=== PATIENT | male | born 1955 | race Caucasian/White ===

== ENCOUNTER 2019-08-08 12:48 | Emergency (ER) | payer MEDICARE, MEDICAID, SELFPAY ==
--- NOTE | 2019-08-08 | XR_ITS ---
WS: [id number] Left shoulder, post reduction AP, 08/08/2019, 1516 hours. Clinical Data: POST REDUCTION Comparison: Left shoulder, 08/08/2019, 1350 hours. Findings: The left shoulder dislocation has been reduced. The humeral head is within the glenoid. No fractures are seen. XR/XR shoulder LT 1V 86765 Impression: Satisfactory reduction of left shoulder dislocation.
[2019-08-08 13:01] VITALS: BP 238/115; PULSE 75; RESP 17; TEMP 36.6; O2SAT 96; BMI 36.9
--- NOTE | 2019-08-08 13:11 | PC.NURSE ---
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 Denies hearing/feeling popping sensation. Able to move left extremity and make fist with left hand
--- NOTE | 2019-08-08 13:19 | XR_ITS ---
WS: [id number] Left shoulder, 3 views, 08/08/2019 Clinical Data: injury; get 3rd y view Comparison: None. Findings: There is an anterior subcoracoid dislocation. No fractures are seen. The AC joints intact. The soft t issues are unremarkable. XR/XR shoulder LT min 2V* [id number] Impression: Anterior subcoracoid dislocation of left humeral head.
--- NOTE | 2019-08-08 13:20 | ED_ITS ---
Documented by User: LIZZETTE Maldonado 08/08/19 15:34 HPI - Extremity Injury (Upper) General: Chief Complaint: Extremity Injury, Upper Stated Complaint: left arm pain/fall Time Seen by Provider: 08/08/19 13:09 Source: patient Mode of arrival: ambulatory Limitations: no limitations History of Present Illness: HPI narrative: Patient is a very nice 63-year-old male who presents to ED today with complaints of acute left shoulder pain. 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 Patient states upon the fall he grabbed a gate panel with the left arm causing it to pull. Patient did not end up falling directly onto the shoulder. MD complaint: injury to: left and shoulder Onset (ago): hour(s) Other Extremity Injury: Left: shoulder Other injuries: none Place: outdoors Severity: moderate Relieving factors: immobilization Exacerbating factors: movement of extremity Context: other (pulling injury) Associated symptoms: Reports no associated symptoms; Denies neck pain or weakness in extremities Review of Systems Card: Denies: chest pain, palpitations, irregular heart rhythm, edema, lightheadedness, syncope or pre-syncope Resp: Denies: shortness of breath Musc: Reports: joint pain; Denies: neck pain, back pain, extremity pain, extremity swelling or joint swelling Neuro: Denies: numbness in extremities, weakness in extremities or changes in sensation PFSH ED PFSH: Social History Smoking and tobacco status: never smoked Physical Exam Const: COMMON NORMALS: no apparent distress, oriented x3, no limitations, alert and well nourished Neck/C-Spine: COMMON NORMALS: full ROM CERVICAL SPINE: No cervical spine tenderness and No paracervical muscle tenderness Chest: COMMONS NORMALS: inspection of chest normal and palpation of chest normal Resp: COMMON NORMALS: normal respiratory effort and clear to auscultation bilaterally AUSCULTATION: clear to auscultation bilaterally Cardio: COMMON NORMALS: regular rate and regular rhythm RATE: regular rate RHYTHM: regular rhythm Extremity: LEFT UPPER EXTREMITY: Yes shoulder joint (TTP of anterior shoulder joint; severely limited ROM) Left shoulder joint: Yes other (deformity consistent with dislocation) Neuro: COMMON NORMALS: oriented x3 and no sensory deficits noted SENSORIUM/ORIENTATION: Yes alert Skin: COMMON NORMALS: no rashes or lesions noted GENERAL SKIN EXAM: no rashes or lesions noted Procedures Orthopedic Joint Reduction Joint #1: Time Out Performed: Yes Side: left Joint Reduction Location: shoulder Analgesia: procedural sedation (Propofol-Dr. Heller administered) Shoulder Technique Used (if applicable): traction/counter-traction and external rotation Post-reduction neuro exam: intact Post-reduction vascular: intact Post Reduction X-Ray Obtained: Yes Post Reduction X-Ray Results: reduced Splint Applied: Yes Patient Tolerated Procedure: well Procedural Sedation Indication: fracture/dislocation reduction ASA Class: II Time of Last PO Intake: 11:00 Preparation: monitor car operator applied and pulse oximeter IV Propofol dose (mg): 80 Patient Tolerated Procedure: well Complications: none Interventions: oxygen applied Course Vital Signs: Vital signs: Vital Signs Temperature 97.8 F 08/08/19 13:01 Pulse Rate 90 08/08/19 15:10 Respiratory Rate 20 H 08/08/19 15:10 Blood Pressure 170/125 08/08/19 15:10 Pulse Oximetry 96 08/08/19 15:10 MDM - Extremity Injury (Upper) Imaging Data^: L shoulder XR: Radiologist's impression: [address] [address] XRay Report Signed Patient: Bubba Rothman Unit #: [id number] : 1955 Age/Sex: 63 / M ADM Date: 08/08 Loc: ER Room/Bed: Attending Dr: Ordering Provider/Ordering MD: Sujey Carlos Date of Service: 08/08/19 Procedure(s): XR shoulder LT min 2V* 34170 Accession Number(s): [id number] Report Number: [id number] WS: [id number] Left shoulder, 3 views, 08/08/2019 Clinical Data: injury; get 3rd y view Comparison: None. Findings: There is an anterior subcoracoid dislocation. No fractures are seen. The AC joints intact. The soft tissues are unremarkable. XR/XR shoulder LT min 2V* [id number] Impression: Anterior subcoracoid dislocation of left humeral head. Dictated By: Erika Lucero MD Signed By: Erika Lucero MD Signed Date/Time: 08/08/19 1352 DD/ 1351 L shoulder XR post reduction: Radiologist's impression: [facility] [address] [place] [address] XRay Report Signed Patient: Bubba Rothman Unit #: [id number] : 1955 Age/Sex: 63 / M ADM Date: 08/08/19 Loc: ER Room/Bed: Attending Dr: Ordering Provider/Ordering MD: Tammie Heller MD Date of Service: 08/08/19 Procedure(s): XR shoulder LT 1V 09925 Accession Number(s): [id number] Report Number: [id number] WS: [id number] Left shoulder, post reduction AP, 08/08/2019, 1516 hours. Clinical Data: POST REDUCTION Comparison: Left shoulder, 08/08/2019, 1350 hours. Findings: The left shoulder dislocation has been reduced. The humeral head is within the glenoid. No fractures are seen. XR/XR shoulder LT 1V 83271 Impression: Satisfactory reduction of left shoulder dislocation. Dictated By: Erika Lucero MD Signed By: Erika Lucero MD Signed Date/Time: 08/08/19 1522 DD/ 1521 Discharge Plan Discharge Patient Disposition: Home, Self-Care Clinical Impression: Anterior dislocation of left shoulder Qualifiers: Encounter type: initial encounter Qualified Code(s): S43.015A - Anterior dislocation of left humerus, initial encounter Condition: Stable Prescriptions: New hydrocodone-acetaminophen 5-325 mg tablet 1 tab PO Q6H PRN (Reason: pain) Qty: 14 RF: 0 Discharge Orders: Discharge Order (Routine); Ordered 08/08/19 Ordered By: Sujey Carlos Referrals: Gonzalo Hooker MD [Primary Care Provider] - Patient Instructions: Dislocation - Shoulder, Shoulder Dislocation (ED) Activity Restrictions/Additional Instructions: As discussed you need to wear shoulder brace at all times except for showering and bathing. Case management will set you up with orthopedics for follow-up. Coding Level of Care Code ED Cash Application Representative for Chg Fwd Exam Comprehensive Documented by User: Tammie Heller MD 08/08/19 15:56 HPI - Extremity Injury (Upper) General: Chief Complaint: Extremity Injury, Upper Stated Complaint: left arm pain/fall Time Seen by Provider: 08/08/19 13:09 PFSH ED PFSH: Social History Smoking and tobacco status: never smoked Course Vital Signs: Vital signs: Vital Signs Temperature 97.8 F 08/08/19 13:01 Pulse Rate 90 08/08/19 15:10 Respiratory Rate 20 H 08/08/19 15:10 Blood Pressure 170/125 08/08/19 15:10 Pulse Oximetry 96 08/08/19 15:10 MDM - Extremity Injury (Upper) MDM Narrative: Medical decision making narrative: I saw and examined patient with above midlevel and agree with her history and physical. I was in the room for this conscious sedation and the reduction. I administered the propofol for the sedation. Patient handled sedation well and reduction was successful and had good pulses and was neurologically intact after the procedure. Patient is to follow-up with orthopedics and is stable for discharge. Discharge Plan Discharge Patient Disposition: Home, Self-Care Clinical Impression: Anterior dislocation of left shoulder Qualifiers: Encounter type: initial encounter Qualified Code(s): S43.015A - Anterior dislocation of left humerus, initial encounter Condition: Stable Prescriptions: New hydrocodone-acetaminophen 5-325 mg tablet 1 tab PO Q6H PRN (Reason: pain) Qty: 14 RF: 0 Discharge Orders: Discharge Order (Routine); Ordered 08/08/19 Ordered By: Sujey Carlos Referrals: Gonzalo Hooker MD [Primary Care Provider] - Patient Instructions: Dislocation - Shoulder, Shoulder Dislocation (ED) Activity Restrictions/Additional Instructions: As discussed you need to wear shoulder brace at all times except for showering and bathing. Case management will set you up with orthopedics for follow-up. Coding Level of Care Code ED Cash Application Representative for Chg Fwd Exam Comprehensive
[2019-08-08 13:57] VITALS: RESP 18
[2019-08-08] MEDS: morphine 4 mg/mL SDV 1 mL IM (13:57)
[2019-08-08] MEDS: LORazepam 2 mg/mL INJ 1 mL IM (14:11)
[2019-08-08] MEDS: propofol 10 mg/mL SDV 20 mL 100 MG IVP (14:57)
[2019-08-08 14:58] VITALS: BP 206/111; PULSE 80; RESP 18; O2SAT 98
[2019-08-08 15:10] VITALS: BP 170/125; PULSE 90; RESP 20; O2SAT 96
[2019-08-08 15:49] VITALS: BP 186/130; PULSE 91; RESP 18; O2SAT 93
--- NOTE | 2019-08-09 10:15 | DCPLANNER ---
associate brand manager had message to schedule a follow up appointment for patient with ortho. associate brand manager called the ortho clinic, spoke with Pat, gave clinic patients information. associate brand manager was told that patients information would be printed and reviewed. Clinic will call case resolution specialist and patient with appointment information.
--- NOTE | 2019-08-13 13:27 | DCPLANNER ---
Patient has a follow up appointment for patient with Dr. Jett on , August 15, 2019 at 9:15 at ortho. Clinic will call patient with appointment information.
--- NOTE | 2019-08-22 09:50 | DCPLANNER ---
Patient attended appointment scheduled for 08.15.19 with ortho.
== END 2019-08-08 15:49 | disposition home or self-care (01) ==
PROVIDERS: Emergency Provider Physician Assistant; Family Provider Family Medicine; PCP Family Medicine
DX: S43.015A Anterior dislocation of left humerus, initial encounter (principal); W01.0XXA Fall on same level from slipping, tripping and stumbling without subsequent striking against object, initial encounter
CPT/HCPCS: 23650; 73020; 73030; 96372; 99282; 99284; J2060; J2270; J2704

== ENCOUNTER → 2019-08-15 09:40 | Outpatient (BNVA) | payer MEDICARE, MEDICAID, SELFPAY | PROVIDERS: Family Provider Family Medicine; PCP Family Medicine; Referring Provider Physician Assistant; Visit Provider Specialist | DX: M25.522 Pain in left elbow (principal); S52.125A Nondisplaced fracture of head of left radius, initial encounter for closed fracture; S43.005A Unspecified dislocation of left shoulder joint, initial encounter; X58.XXXA Exposure to other specified factors, initial encounter | CPT/HCPCS: 73030; 73080 ==

== ENCOUNTER 2020-01-02 00:16 | Emergency (ER) | payer MEDICARE, MEDICAID, SELFPAY ==
[2020-01-02 00:26] VITALS: BP 248/112; PULSE 59; RESP 18; TEMP 36.4; O2SAT 96; BMI 30.2
[2020-01-02 00:28] LABS: Basophils # 0.1 10^3/uL (0.0-0.1); Basophils % 0.9 %; Eosinophils # 0.1 10^3/uL (0.0-0.8); Eosinophils % 1.1 %; Hematocrit 53.2 % (42.0-52.0); Hemoglobin 18.1 g/dL (11.7-16.6); Lymphocytes # 2.5 10^3/uL (0.8-4.8); Lymphocytes % 35.1 %; Mean Corpuscular Hemoglobin 33.5 pg (28.0-34.0); Mean Corpuscular Volume 98.5 fL (80-94); Mean Platelet Volume 10.7 fL (7.4-10.4); Monocytes # 0.7 10^3/uL (0.2-0.9); Neutrophils # 3.69 10^3/uL (1.8-7.7); Neutrophils % 52.8 %; Nucleated Red Blood Cells % 0 %; Platelet Count 254 10^3/cmm (130-400); Red Cell Distribution Width 13.9 % (12.1-15.1)
--- NOTE | 2020-01-02 00:28 | ED_ITS ---
HPI - Abdominal Pain General: Chief Complaint: Abdominal Pain Stated Complaint: ABD PAIN Time Seen by Provider: 01/02/20 00:20 Source: patient and EMS Mode of arrival: EMS Limitations: no limitations History of Present Illness: HPI narrative: 64-year-old male whose had right- sided flank pain over the last 2 days. He states pain is sharp in nature and has had difficulty with urination to. He states that he has not been taking his blood pressure meds and he is hypertensive here. MD elicited complaint: abdominal pain and flank pain Pertinent past history: kidney stones Onset (ago): day(s) (2) Pain Consistency: constant Location: R flank Severity: moderate Quality: stabbing Radiation: other (groin) Exacerbating factors: nothing Relieving factors: nothing Associated Symptoms: Reports nausea; Denies chills, dysuria and fever(s) Review of Systems Const: Denies: fever(s), chills, body aches or change in appetite Eyes: Denies: blurry vision or eye discomfort ENMT: Denies: throat pain or dental pain Card: Denies: chest pain Resp: Denies: dyspnea GI: Reports: abdominal pain and nausea : Denies: dysuria Musc: Denies: neck pain or back pain Skin/Breast: Denies: rash Neuro: Denies: headache(s) Psych: Denies: depression Pedro/Lymph: Denies: easy bruising All/Imm: Denies: urticaria PFSH ED PFSH: Social History Smoking and tobacco status: never smoked Physical Exam Const: COMMON NORMALS: no acute distress, patient oriented x3 and healthy appearing HENMT: COMMON NORMALS: normocephalic and atraumatic HEAD & SCALP: normocephalic and atraumatic Eye: COMMON NORMALS: Equal, round and reactive pupils present and EOMs intact bilaterally PUPIL: Yes Equal, round and reactive pupils present Neck/C-Spine: COMMON NORMALS: full ROM and supple Chest: COMMONS NORMALS: normal inspection of the chest and normal palpation of entire chest wall Resp: COMMON NORMALS: normal respiratory effort, No retractions, No use of accessory muscles and clear to auscultation bilaterally AUSCULTATION: clear to auscultation bilaterally Cardio: COMMON NORMALS: regular rate, regular rhythm and No murmurs present (Cardio) RATE: regular rate RHYTHM: regular rhythm GI: COMMON NORMALS: Normal to inspection, nondistended, normoactive bowel sounds present, Soft to palpation, non-tender and no masses PALPATION: Yes Soft to palpation Extremity: COMMON NORMALS: normal to inspection and full ROM Neuro: COMMON NORMALS: patient oriented x3, moves all extremities and no focal motor deficits Psych: COMMON NORMALS: mental status grossly normal, Normal thought process present and cooperative THOUGHT PROCESS: Normal thought process present Skin: COMMON NORMALS: no rashes or lesions noted and no wounds GENERAL SKIN EXAM: no rashes or lesions noted Course Vital Signs: Vital signs: Vital Signs Temperature 97.5 F L 01/02/20 00:26 Pulse Rate 80 01/02/20 01:44 Respiratory Rate 16 01/02/20 01:44 Blood Pressure 188/105 01/02/20 01:44 Pulse Oximetry 91 01/02/20 01:44 MDM - Abdominal Pain MDM Narrative: Medical decision making narrative: Bubba presents here with a kidney stone that should pass. Will prescribe patient Flomax along with pain meds. Patient's pain is resolved here. Will have him follow-up with Dr. Tavarez and return if worsening. Patient understands agrees with plan. Lab Data: Labs: Lab Results 01/02/20 01/02/20 01/02/20 Range/Units 00:06 00:06 00:50 WBC 7.0 (4.0-10.0) 10^3/ uL RBC 5.40 H (4.1-5.3) 10^6/u L Hgb 18.1 H (11.7-16.6) g/dL Hct 53.2 H (42.0-52.0) % MCV 98.5 H (80-94) fL MCH 33.5 (28.0-34.0) pg MCHC 34.0 (30.0-36.0) g/dL RDW 13.9 (12.1-15.1) % Plt Count 254 (130-400) 10^3/c mm MPV 10.7 H (7.4-10.4) fL Neut % (Auto) 52.8 % Lymph % (Auto) 35.1 % Bland % (Auto) 10.0 % Eos % (Auto) 1.1 % Baso % (Auto) 0.9 % Neut # (Auto) 3.69 (1.8-7.7) 10^3/u L Lymph # (Auto) 2.5 (0.8-4.8) 10^3/u L Bland # (Auto) 0.7 (0.2-0.9) 10^3/u L Eos # (Auto) 0.1 (0.0-0.8) 10^3/u L Baso # (Auto) 0.1 (0.0-0.1) 10^3/u L Nucleated RBC % (a uto) 0 % Nucleated RBCs # 0.0 /100WBC Sodium 142 (136-145) mmol/L Potassium 3.4 L (3.5-5.1) mmol/L Chloride 100 (98-107) mmol/L Carbon Dioxide 27 (22-29) mmol/L Anion Gap 18.4 (5-19) BUN 10 (8-23) mg/dL Creatinine 0.7 (0.7-1.2) mg/dL GFR Calculation 113.9 (90-130) mL/min Glucose 143 H (65-115) mg/dL Calculated Osmolal ity 292 (285-295) mOsm/k g Calcium 9.8 (8.5-10.5) mg/dL Total Bilirubin 1.0 (0.15-1.2) mg/dL AST 25 (0-40) U/L ALT 41 (0-41) U/L Alkaline Phosphata se 106 (40-130) IU/L Total Protein 8.1 (6.6-8.7) g/dL Albumin 4.3 (3.5-5.2) g/dL Globulin 3.8 (1.3-4.6) g/dL Lipase 45 (13-60) U/L Urine Color Yellow (Yellow) Urine Appearance Clear (CLEAR) Urine pH 7 (5-7) Ur Specific Gravit y 1.015 (1.005-1.030) Urine Protein Neg (Negative) Urine Glucose (UA) Norm (Normal) Urine Ketones Negative (Negative) Urine Blood Trace H (Negative) Urine Nitrate Negative (Negative) Urine Bilirubin Neg (NEGATIVE) Urine Urobilinogen 1 H (Negative) mg/dL Ur Leukocyte Yolande ase Negative (Negative) Urine RBC 5-10 H (0-2) /hpf Urine WBC None (0-5) /hpf Ur Squamous Epith Cells None (0-5) Amorphous Sediment Not Reportable Urine Bacteria Trace (NONE) Imaging Data ^: CT Abd/Pel: Attestation: I personally reviewed and interpreted this imaging study as follows: Radiologist's impression: [facility] [address] [place] [address] CT Scan Report Signed Patient: Bubba Rothman Unit #: [id number] : 1955 Age/Sex: 64 / M ADM Date: Loc: ER Room/Bed: Attending Dr: Ordering Provider/Ordering MD: Tammie Heller MD Date of Service: 01/02/20 Procedure(s): CT kidney stone [id number] Accession Number(s): [id number] Report Number: [id number] PROCEDURE INFORMATION: Exam: CT Abdomen And Pelvis Without Contrast Exam date and time: 01/02/2020 12:29 AM Age: 64 years old Clinical indication: Nausea and vomiting; Abdominal pain; Prior surgery; Surgery type: Gb; Patient HX: Right flank pain with n/v x 2 days; Additional info: Rigth flank pain TECHNIQUE: Imaging protocol: Computed tomography of the abdomen and pelvis without contrast. Radiation optimization: All CT scans at this facility use at least one of these dose optimization techniques: automated exposure control; mA and/or kV adjustment per patient size (includes targeted exams where dose is matched to clinical indication); or iterative reconstruction. COMPARISON: CT Abdomen/Pelvis Renal [id number] 02/09/2018 2:15 AM RADIATION DOSE METRICS: Total DLP (mGy-cm): 1589.12 FINDINGS: Lungs: The lung bases are clear. Mediastinal space: Small hiatal hernia. There may be some mucosal/wall thickening involving the lower esophagus. This is nonspecific, but could represent evidence for esophagitis. Neoplasm not entirely excluded. Please correlate clinically. Liver: Unremarkable. Gallbladder and bile ducts: Prior cholecystectomy, no significant biliary tree dilation. Pancreas: Unremarkable. Spleen: Unremarkable. Adrenals: Unremarkable. Kidneys and ureters: Mild right hydronephrosis and hydroureter. There is a 2 mm distal right ureteral calculus, about 2 cm from the UVJ. Suspect a very small left intrarenal calculus. No left hydronephrosis or visible left ureteral calculus. Mild perinephric stranding bilaterally, similar to prior exam. This is a nonspecific appearance and could well be chronic. Possibility of pyelonephritis is not entirely excluded, please correlate clinically. Stomach and bowel: There are no CT findings to strongly suggest diverticulitis. Appendix: The appendix is visualized and appears normal. Intraperitoneal space: No free air, ascites, or significant bowel distention. Vasculature: No evidence for abdominal aortic aneurysm. Lymph nodes: No retroperitoneal adenopathy. Bladder: Possible mild diffuse urinary bladder wall thickening. Evaluation is limited, as the bladder is almost empty. This may be related to the prostate enlargement. While nonspecific, this could also indicate evidence for cystitis. Please correlate clinically. Reproductive: Prostate enlargement with transverse diameter of 4.8 cm. A the Bones/joints: Moderate degenerative disc changes at L5-S1, similar to the prior exam. Soft tissues: No significant acute finding. CT/CT kidney stone [id number] IMPRESSION: 1. 2 mm distal right ureteral calculus, details above. 2. Mild right hydronephrosis and hydroureter. 3. Mild perinephric stranding bilaterally, see above discussion 4. Normal appendix. 5. Prostate enlargement and possible urinary bladder wall thickening, see above. 6. Small hiatal hernia. Possibly some thickening of the lower esophagus, see above discussion. 7. Other findings discussed above. Discharge Plan Discharge Patient Disposition: Home, Self-Care Clinical Impression: Kidney stone Condition: Stable Prescriptions: [place] [facility] 5-325 mg tablet 1 tab PO Q6H PRN (Reason: pain) Qty: 14 RF: 0 Flomax 0.4 mg capsule 0.4 mg PO DAILY Qty: 4 RF: 0 ondansetron 4 mg tablet,disintegrating 4 mg PO Q6H PRN (Reason: nausea and vomiting) Qty: 14 RF: 0 No Action benzonatate 200 mg capsule PO RF: 0 gabapentin 300 mg capsule PO RF: 0 docusate sodium 100 mg capsule PO RF: 0 prednisone 10 mg tablet PO RF: 0 sertraline 50 mg tablet PO RF: 0 diclofenac sodium 75 mg tablet,delayed release (DR/EC) PO RF: 0 allopurinol 100 mg tablet PO RF: 0 trazodone 50 mg tablet PO RF: 0 omeprazole 20 mg capsule,delayed release(DR/EC) PO RF: 0 oxycodone 5 mg tablet 5 mg PO RF: 0 hydrocodone-acetaminophen 5-325 mg tablet 1 tab PO Q6H PRN (Reason: pain) Qty: 14 RF: 0 Discharge Orders: Discharge Order (Routine); Ordered 01/02/20 Ordered By: Tammie Heller Referrals: Archie Tavarez MD [Physician] - 1-3 days Gonzalo Hooker MD [Primary Care Provider] - Discharge Diet: Advance as tolerated Discharge Activity: Resume usual activity Patient Instructions: Kidney Stones (ED) Coding Level of Care Code ED Information Technology Account Manager for Chg Fwd Exam Comprehensive
[2020-01-02] MEDS: hyDRALAzine 20 mg/mL INJ 1 mL 10 MG IVP (00:41)
[2020-01-02 00:42] LABS: Alanine Aminotransferase 41 U/L (0-41); Albumin Level 4.3 g/dL (3.5-5.2); Alkaline Phosphatase 106 IU/L (40-130); Anion Gap 18.4 (5-19); Aspartate Amino Transferase 25 U/L (0-40); Blood Urea Nitrogen 10 mg/dL (8-23); Calcium 9.8 mg/dL (8.5-10.5); Carbon Dioxide 27 mmol/L (22-29); Chloride 100 mmol/L (98-107); Globulin 3.8 g/dL (1.3-4.6); Glomerular Filtration Rate 113.9 mL/min (90-130); Glucose 143 mg/dL (65-115); Lipase 45 U/L (13-60); Osmolality Calculated 292 mOsm/kg (285-295); Potassium 3.4 mmol/L (3.5-5.1); Sodium 142 mmol/L (136-145); Total Protein 8.1 g/dL (6.6-8.7)
[2020-01-02] MEDS: ondansetron 2 mg/ML SDV 2 mL 4 MG IVP (00:43)
[2020-01-02 00:44] VITALS: RESP 14; O2SAT 93
[2020-01-02] MEDS: morphine 4 mg/mL SDV 1 mL IVP (00:44)
[2020-01-02 00:46] VITALS: BP 248/112; PULSE 58; RESP 14; O2SAT 94
[2020-01-02 01:08] VITALS: BP 189/122; PULSE 85; RESP 18; O2SAT 92
[2020-01-02 01:44] VITALS: BP 188/105; PULSE 80; RESP 16; O2SAT 91
[2020-01-02] MEDS: ketorolac 30 mg/mL INJ 15 MG IVP (01:48)
[2020-01-02 01:58] LABS: Add Urine Microscopic? YES; Bilirubin Urine Neg (NEGATIVE); Blood Urine Trace (Negative); Glucose Urine UA Norm (Normal); Ketones Urine Negative (Negative); Leukocyte Esterase Urine Negative (Negative); Nitrate Urine Negative (Negative); Protein Urine Neg (Negative); Specific Gravity, Urine 1.015 (1.005-1.030); Urine Appearance Clear (CLEAR); Urine Color Yellow (Yellow); Urobilinogen Urine 1 mg/dL (Negative); pH Urine 7 (5-7)
[2020-01-02 01:59] LABS: Bacteria Urine TRACE
[2020-01-02] MEDS: HYDROcodone-acetaminophen 7.5-325 mg Tablet 1 TAB PO (02:18)
[2020-01-02 02:19] VITALS: BP 173/100; PULSE 98; RESP 14; O2SAT 94
--- NOTE | 2020-01-02 08:33 | DCPLANNER ---
restaurant culinary manager had message to schedule a follow up appointment for patient with Dr. Tavarez. restaurant culinary manager called the office of Dr. Tavarez, spoke with Layla, gave clinic patients information. restaurant culinary manager was told that patients information would be printed and reviewed. Clinic will call patient with appointment information.
--- NOTE | 2020-01-03 07:53 | DCPLANNER ---
Patient has a follow up appointment scheduled for Monday, January 06, 2020 at 3:[address] Tavarez. Clinic will call patient with appointment information.
--- NOTE | 2020-01-23 14:32 | DCPLANNER ---
Patient did attend appointment scheduled for 01.06.[address] Wynn office.
== END 2020-01-02 02:20 | disposition home or self-care (01) ==
PROVIDERS: Emergency Provider Emergency Medicine; PCP Family Medicine
DX: N20.0 Calculus of kidney (principal)
CPT/HCPCS: 12345; 36415; 74176; 80053; 81001; 81003; 83690; 85025; 96374; 96375; 99283; 99284; J0360; J1885; J2270; J2405

== ENCOUNTER 2020-01-06 13:33 | Outpatient (CLI) | payer MEDICARE, MEDICAID, SELFPAY ==
--- NOTE | 2020-01-06 14:30 | XRR_ITS ---
PROCEDURE INFORMATION: Exam: XR Abdomen, 1 View Exam date and time: 01/06/2020 1:58 PM Age: 64 years old Clinical indication: Condition or disease; Other: Stones; Additional info: Stone TECHNIQUE: Imaging protocol: XR of the abdomen. Views: Frontal supine view of the abdomen. 1 View. COMPARISON: CT kidney stone [id number] 01/02/2020 12:44 AM FINDINGS: Gastrointestinal tract: Normal. No bowel dilation. Organs: There are punctate calcifications in the mid left kidney. Bones/joints: Unremarkable. XR/XR KUB [id number] IMPRESSION: There are no acute concerning abnormalities.
== END 2020-01-06 13:34 | disposition home or self-care (01) ==
PROVIDERS: PCP Family Medicine; Visit Provider Urology
DX: N20.0 Calculus of kidney (principal)
CPT/HCPCS: 74018; 81001

== ENCOUNTER 2020-02-11 08:13 | Outpatient (CLI) | payer MEDICARE, MEDICAID, SELFPAY ==
--- NOTE | 2020-02-11 08:00 | XRR_ITS ---
PROCEDURE INFORMATION: Exam: XR Abdomen, 1 View Exam date and time: 02/11/2020 8:27 AM Age: 64 years old Clinical indication: Condition or disease; Kidney or ureter condition; Calculus (stone) in ureter; Additional info: Urteral stone TECHNIQUE: Imaging protocol: XR of the abdomen. Views: Frontal supine view of the abdomen. 1 View. COMPARISON: CR XR KUB [id number] 01/06/2020 1:50 PM FINDINGS: Gastrointestinal tract: Localized bowel dilatation in the right upper quadrant. Intraperitoneal space: Vas deferens calcification. Bones/joints: Degenerative change. Other: Nonspecific 1 mm calcification overlying the left paraspinous region at the L1-L2 level. If urolithiasis is of clinical concern, CT may be of benefit for further evaluation. XR/XR KUB [id number] IMPRESSION: 1. Localized bowel dilatation in the right upper quadrant. 2. Nonspecific 1 mm calcification overlying the left paraspinous region at the L1-L2 level. If urolithiasis is of clinical concern, CT may be of benefit for further evaluation.
== END 2020-02-11 08:14 | disposition home or self-care (01) ==
LOC: RAD 08:18
PROVIDERS: PCP Family Medicine; Visit Provider Urology
DX: N20.1 Calculus of ureter (principal)
CPT/HCPCS: 74018

== ENCOUNTER 2021-09-08 11:32 | Inpatient (IN) | payer MEDICARE, MEDICAID, SELFPAY ==
[2021-09-08] VITALS (21 sets, daily range): BP systolic 114–170; BP diastolic 71–113; PULSE 78–103; RESP 15–25; TEMP 36.4–36.6; O2SAT 91–96; BMI 38.0
--- NOTE | 2021-09-08 11:36 | W.ED.CHESTPA ---
HPI - Chest Pain General: Chief Complaint: Chest Pain Stated Complaint: CHEST PAIN Time Seen by Provider: 09/08/21 11:35 History of Present Illness: Mr Rothman is a 65-year-old gentleman with significant history of obesity and chewing tobacco use who presents to the emergency department due to chest pain. He reports symptom onset at rest yesterday afternoon. He describes pressure in the middle of his chest with radiation down the left arm and towards his epigastric region this resolved spontaneously however returned this morning. He did see his primary care provider yesterday. He endorses continued symptoms today and current moderate intensity symptoms. He had one episode of nausea associated with this but no other typical cardiac features. There is not an exertional component however this is worse when lying flat. Overall course of symptoms has persisted. Denies similar episodes in the past. Denies history of hypertension or hyperlipidemia. Denies prior NE. No other specific changes in health, exacerbating, or alleviating factors identified. Onset (ago): hour(s) Prior episodes: No Onset: during rest Pain location: substernal Pain radiation: left arm Severity: moderate Quality: aching and heaviness Relieving factors: nothing Exacerbating factors: supine Associated symptoms: Reports nausea Review of Systems General: Reports: 10 or more systems reviewed and unremarkable except in HPI and below GI: Reports: nausea PFSH ED PFSH: Medical History (Updated 09/08/21 @ 12:12 by Adrien Coffey MD) Gout Right ureteral stone Surgical History Hx of colonoscopy with polypectomy S/P carpal tunnel release Family History Family/Other Cancer rectal Father Cancer colon Mother , in her 80's Alzheimer disease Social History Smoking and tobacco status: never smoked Alcohol intake: former Marital status: Current occupational status: disabled History of recent travel: No Physical Exam Const: COMMON NORMALS: alert GENERAL APPEARANCE: cooperative, well developed and ill appearing (mildly) HENMT: COMMON NORMALS: normocephalic, atraumatic and external ears normal HEAD & SCALP: normocephalic and atraumatic EXTERNAL EAR: Yes external ears normal Eye: COMMON NORMALS: conjunctivae normal CONJUNCTIVA: Yes conjunctivae normal SCLERA: sclerae normal Neck/C-Spine: COMMON NORMALS: supple GENERAL: Yes trachea midline Resp: COMMON NORMALS: normal respiratory effort and clear to auscultation bilaterally EFFORT & INSPECTION: Yes able to speak in complete sentences AUSCULTATION: clear to auscultation bilaterally Cardio: COMMON NORMALS: regular rate and regular rhythm RATE: regular rate RHYTHM: regular rhythm GI: COMMON NORMALS: Soft to palpation PALPATION: Yes Soft to palpation and No Tenderness to palpation present (GI) PERCUSSION: normal to percussion Extremity: GENERAL: Yes normal exam except as noted and No edema Neuro: COMMON NORMALS: moves all extremities SENSORIUM/ORIENTATION: Yes alert and No Orientation impaired Psych: COMMON NORMALS: mental status grossly normal and Normal thought process present THOUGHT PROCESS: Normal thought process present Course ED course: - Patient was seen and evaluated by me at bedside immediately after being shown EKG. STEMI alert called. - Patient placed on cardiac monitors, IV access obtained - Initial evaluation notable for exam as above, nontoxic, satisfactory vitals. - Labs personally interpreted by me - Aspirin given by EMS CULINARY INTERN, Plavix, Zofran, heparin bolus given. - Labs notable for mild hemoconcentration which appears similar to prior, no leukocytosis. Metabolic panel and troponin pending at time of admission. - Cardiology came to bedside and evaluated the patient. Patient to be taken emergently to Digital Marketing Assistant for STEMI. - Patient left emergency department with the Digital Marketing Assistant team in satisfactory condition Note: Click bubbles or prepopulated monteiro in note writing are used for assistance with data collection and billing and are inherently more limited than narrative and other text portions of this note. Please use narrative for additional clinical history and defer to narrative/free test for any case of contradictory information. If information appears in only free text or click bubble it should be considered present or absent as reported. Please contact note freelance writer for clarifications of clinical information or contradictory information. MDM is a brief summary, contradictory or erroneous seeming information should be clarified and full note should be reviewed. Vital Signs: Vital signs: Vital Signs Temperature 97.9 F 09/08/21 11:59 Pulse Rate 103 H 09/08/21 11:59 Respiratory Rate 19 H 09/08/21 11:59 Blood Pressure 167/101 09/08/21 11:59 Pulse Oximetry 93 09/08/21 11:59 MDM - Chest Pain Medical Decision Making 65-year-old gentleman with history of chewing tobacco use and obesity presenting to the emergency department due to chest pain. Patient found to have STEMI. ST elevation in inferior leads with high lateral reciprocal changes. STEMI alert activated. Patient taken to Digital Marketing Assistant. Medical Records I reviewed the patient's medical records. Lab Data I reviewed the patient's lab results. : 09/08/21 11:39 09/08/21 11:39 Laboratory Results WBC 6.5 10^3/uL (4.0-10.0) 09/08/21 11:39 RBC 5.31 10^6/uL (4.1-5.3) H 09/08/21 11:39 Hgb 17.7 g/dL (11.7-16.6) H 09/08/21 11:39 Hct 51.4 % (42.0-52.0) 09/08/21 11:39 MCV 96.8 fl (80-94) H 09/08/21 11:39 MCH 33.3 pg (28.0-34.0) 09/08/21 11:39 MCHC 34.4 g/dL (30.0-36.0) 09/08/21 11:39 RDW 13.4 % (12.1-15.1) 09/08/21 11:39 Plt Count 210 10^3/cmm (130-400) 09/08/21 11:39 MPV 10.9 fL (7.4-10.4) H 09/08/21 11:39 Neut % (Auto) 70.6 % 09/08/21 11:39 Lymph % (Auto) 22.9 % 09/08/21 11:39 [place] % (Auto) 5.2 % 09/08/21 11:39 Eos % (Auto) 0.5 % 09/08/21 11:39 Baso % (Auto) 0.6 % 09/08/21 11:39 Neut # (Auto) 4.60 10^3/uL (1.8-7.7) 09/08/21 11:39 Lymph # (Auto) 1.5 10^3/uL (0.8-4.8) 09/08/21 11:39 [place] # (Auto) 0.3 10^3/uL (0.2-0.9) 09/08/21 11:39 Eos # (Auto) 0.0 10^3/uL (0.0-0.8) 09/08/21 11:39 Baso # (Auto) 0.0 10^3/uL (0.0-0.1) 09/08/21 11:39 Nucleated RBC % (auto) 0 % 09/08/21 11:39 Nucleated RBCs # 0.0 /100WBC 09/08/21 11:39 Sodium 136 mmol/L (136-145) 09/08/21 11:39 Potassium 3.4 mmol/L (3.5-5.1) L 09/08/21 11:39 Chloride 99 mmol/L (98-107) 09/08/21 11:39 Carbon Dioxide 27 mmol/L (22-29) 09/08/21 11:39 Anion Gap 13.4 (5-19) 09/08/21 11:39 BUN 14 mg/dL (8-23) 09/08/21 11:39 Creatinine 0.8 mg/dL (0.7-1.2) 09/08/21 11:39 GFR Calculation 97.3 mL/min (90-130) 09/08/21 11:39 Glucose 175 mg/dL (65-115) H 09/08/21 11:39 Calculated Osmolality 287 mOsm/kg (285-295) 09/08/21 11:39 Calcium 9.4 mg/dL (8.5-10.5) 09/08/21 11:39 Total Bilirubin 1.0 mg/dL (0.15-1.2) 09/08/21 11:39 AST 33 U/L (0-40) 09/08/21 11:39 ALT 28 U/L (0-41) 09/08/21 11:39 Alkaline Phosphatase 67 IU/L (40-130) 09/08/21 11:39 Troponin T Baseline 367 ng/L (0-15) H* 09/08/21 11:39 Total Protein 6.9 g/dL (6.6-8.7) 09/08/21 11:39 Albumin 4.0 g/dL (3.5-5.2) 09/08/21 11:39 Globulin 2.9 g/dL (1.3-4.6) 09/08/21 11:39 EKG Data EKG 1: I personally reviewed and interpreted this EKG as follows: EKG interpretation date: 09/08/21 EKG interpretation time: 11:38 Interpretation: Twelve-lead EKG shows a regular rhythm at a rate of 100. ME interval 136, QRS duration 104, QTc 428. Normal axis. Interpretation: Sinus tachycardia. STEMI with ST elevation in lead III and aVF as well as nonspecific changes in lead II and V6. There is reciprocal ST depression in lead I and aVL. Discharge Plan Discharge Patient Disposition: Admitted As Inpatient Clinical Impression: ST elevation myocardial infarction (STEMI) Condition: Stable Coding Level of Care Code ED Train Electronic Technician for g Fwd Exam Comprehensive
--- NOTE | 2021-09-08 11:40 | XR_ITS ---
WS: [id number] Exam: XR chest 1V portable [id number] Date/Time of Exam: 09/08/2021 11:45 AM Reason For Exam: chest pain Comparison 02/09/2018. The lungs are clear and fully expanded. Unremarkable cardiomediastinal silhouette for portable techni que. Regional bony elements are intact. Monitoring leads superimpose the chest. XR/XR chest 1V portable [id number] IMPRESSION: 1. Unremarkable AP portable chest.
--- NOTE | 2021-09-08 11:40 | ECG_ITS ---
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 Measurements Intervals [place] Rate: 100 P: 43 MD: 136 QRS: 34 QRSD: 104 T: -45 QT: 371 QTc: 480 Interpretive Statements SINUS TACHYCARDIA INFERIOR MYOCARDIAL INFARCTION , PROBABLY RECENT [40+ ms Q WAVE AND/OR ST/T ABNORMALITY IN II/aVF] ACUTE OK Compared to ECG 02/09/2018 08:13:04 Myocardial infarct finding now present Sinus rhythm no longer present Electronically Signed On 09-08-2021 17:06:12 CDT by Tino Wang M.D. [id number]
[2021-09-08 11:46] LABS: Basophils % 0.6 %; Eosinophils % 0.5 %; Hematocrit 51.4 % (42.0-52.0); Hemoglobin 17.7 g/dL (11.7-16.6); Lymphocytes # 1.5 10^3/uL (0.8-4.8); Lymphocytes % 22.9 %; Mean Corpuscular HGB Conc 34.4 g/dL (30.0-36.0); Mean Corpuscular Hemoglobin 33.3 pg (28.0-34.0); Mean Corpuscular Volume 96.8 fl (80-94); Mean Platelet Volume 10.9 fL (7.4-10.4); Monocytes # 0.3 10^3/uL (0.2-0.9); Monocytes % 5.2 %; Neutrophils % 70.6 %; Nucleated Red Blood Cells % 0 %; Platelet Count 210 10^3/cmm (130-400); Red Blood Count 5.31 10^6/uL (4.1-5.3); Red Cell Distribution Width 13.4 % (12.1-15.1); White Blood Count 6.5 10^3/uL (4.0-10.0)
--- NOTE | 2021-09-08 11:46 | XACV_ITS ---
Exam Room: 2 Ht: 157 cm Wt: 94 kg BSA: 2.08 m2 Gender: Male : 1955 Any Known Allergies: No known allergies Exam Priority: Routine Indication(s): - Acute inferior OR Procedure(s): Procedure Description: Diagnostic procedure Procedure Description: PCI procedure Procedure Description: Left Heart Catheterization Procedure Description: Left ventriculography Procedure Description: Drug Eluting Coronary Stent Procedure Description: PTCA Procedure Description: Coronary Angiography Diagnostic Cath Status: Emergency Diagnostic Findings * Patient initially underwent the procedure via the right radial artery. The artery was partially blocked in the area of the brachial artery. A wire was placed through and the guide placed up to the axillary artery. The innominate artery was extremely tortuous and the vessels could not be cannulated using the catheter from the right radial artery. This was abandoned and the procedure was completed from the right femoral artery. * Coronary angiography reveals right coronary artery dominance. There is a 99% stenosis in the midportion of the right coronary artery with JENNIFER I flow beyond this. The left main, circumflex and LAD are without any significant lesions. There is a 50% mid LAD lesion. PCI Status: Emergency PCI Indication: Immediate PCI for STEMI Interventional Findings * A guide was difficult to place. Once this was placed the wire was used to cross the lesion. It required predilatation. This occurred with a 2.0 mm balloon. Subsequently a 3.5 mm x 15 mm stent was placed in the mid right coronary artery without complication. Conclusions 1. Acute inferior wall OR with subtotal stenosis of the right coronary artery which underwent stenting without complication. Recommendations * Routine post OR therapy. Interventional RX Recommendation: PCI w/o planned CABG Diagnostic RX Recommendation: PCI w/o planned CABG Anticoagulation: Heparin Ventriculography Ejection Fraction: 50.0 % Pressures Phase:Rest AO : 140 / 91 ( 114 ) @ 1:13:00 PM 177 / 108 ( 138 ) @ 1:28:00 PM 167 / 107 ( 135 ) @ 1:34:00 PM 174 / 95 ( 132 ) @ 1:47:00 PM 175 / 90 ( 132 ) @ 1:47:00 PM LV : 184 / -5 / 18 @ 1:47:00 PM 184 / -2 / 24 @ 1:47:00 PM 186 / -3 / 22 @ 1:47:00 PM Valves Phase:DefaultPhase AV : 14.0 @ 12:58:39 PM AV Mean Gradient: 16.0 @ 12:58:39 PM Clinical Evaluation EBL: 5mL-10mL Procedural Details Admit Source: Emergency department. Pre-Procedure Time Out. Identified patient by full name and date of as verbalized by the patient/guarantor. Does the consent match the physician's order: Yes. Inpatient/Outpatient History & Physical on Chart: Yes. Accurate & Complete Informed Consent: N/A Emergent. If H&P is completed, is and addenduem needed: N/A; If yes, is the addendum complete: N/A. Visualize and Verify Site with Patient/Guarantor: N/A. Relevant Radiology Images available: N/A. Pre-op teaching completed and patient verbalized understanding. The risks, benefits, and alternatives of sedation and/or procedure were discussed by physician. The patient agrees to continue. Procedure started. [facility] Clinical Fraility Score: 3: Managing Well. Saw Edge Fuser Circular Indications: ACS <= 24 hours. Chest Pain Symptom Assessment: Atypical Angina. Correct patient, site and procedure confirmed by cath team. Current diagnosis: STEMI. PERRLA. Strong, equal hand gas leak inspector helper bilaterally. Lungs clear x 5 lobes. IV Site on Arrival: 18 gauge in the left anticubital. IV Fluids: 0.9% NaCl at KVO. 50 mL infused prior to flower shop laborer/designer. Pre Procedural Pulses: bilateral radial was 2+. Pre Procedural Pulses: bilateral dorsalis pedis was 2+. Oxygen started at 2liters/min via nasal canula. right groin was prepped with chloroprep then draped in the usual sterile fashion. right radial was prepped with chloroprep then draped in the usual sterile fashion. Physician notified. Baseline sample Acquired. HR: 105 BPM. Physician arrived. Physician scrubbed in. Immediate Pre-Procedure Time Out. Correct Patient: Yes; Correct Procedure: Yes; Correct Site: Yes; Correct Patient Position: Yes; Correct Supplies: Yes; Dried Flammable Prep: Yes; Blood Products Available: n/a. Lidocaine 1% infiltrated to the right radial. Glidewire inserted. 6 burundian JR 4 guide catheter was inserted over the Glidewire. Multiple views taken of right coronary artery. Glidewire removed. Radial access aborted due to torturosity. Femoral access attempted at this time. A TR Band was successful obtaining hemostatsis at the Right Radial artery insertion site. Lidocaine 1% infiltrated to the right groin. Arterial access obtained with micropuncture set. 6 burundian JR 4 guide catheter was inserted over the wire. Guide catheter out. New 6 burundian JR 4 guide catheter was inserted over the wire. Inflation number : 1 A AB MINI TREK 2.00X15 RX BALLOON was prepped and advanced across the Mid RCA , then inflated to 8 KASH for 0:20 seconds. Balloon inserted to lesion in the mid RCA. Balloon out. Results checked. Paxton guidewire was advanced through the guide catheter to lesion in the mid RCA. Stent inserted to lesion in the mid RCA. Inflation Number : 2 A EMERSON Feliciano BRENNAN 3.5X15 ALEKSEY -Lot Number# [id number] Exp 05/14/2024 was prepped and advanced across the Mid RCA. The stent was deployed at 12 KASH for 0:22 seconds. Stent balloon out over wire. Results checked. Guide catheter and Paxton wire removed. A 5 burundian JL4 catheter in over wire. Multiple views taken of left coronary artery. Catheter out. A 5 burundian Angled Pig catheter in over wire. EDP Sample taken: LV 184/-6,18; HR: 94 BPM; SpO2: 95%. LV gram performed in SMITH @ 10 mL/second for a total of 30 mL. EDP Sample taken: LV 184/-3,24; HR: 76 BPM; SpO2: 95%. Pullback taken: LV 186/-4,22; AO 174/95(132); Mean: 16mmHg, Peak to Peak: 14mmHg, SEP: 20sec/min; HR: 83 BPM; SpO2: 95%. Catheter out. Current Diagnosis : STEMI. PCI Indication: STEMI. A Suture was successful obtaining hemostatsis at the Right Femoral artery insertion site. Post Procedure: Pulses reassessed and unchanged. PERRLA. Strong, equal hand gas leak inspector helper bilaterally. No VTE prophylaxis required. Medication's Wasted: Nitro = 49.8 mg. Medication's Wasted: Heparin = 1000 u. Total IV fluids: 50 mL. Post-op diagnosis: STEMI, Obstructive CAD. Complications: none. Estimated blood loss: 5mL-10mL. Responsiveness - Normal response to verbal stimuli; alert and oriented, PERRLA. Airway - Unaffected, no intervention required; spontaneous ventilation. Circulation: W/N/L, pulses unchanged. Nausea/Vomiting: No. Procedure completed. Patient transferred by bed to CPRU. PCI Indication : Immediate PCI for STEMI. Vital chart was stopped. Access Site Site: Right Radial artery Sheath Size: 6 Fr Hemostasis Method: TR Band Hemostasis Success: Successful Site: Right Femoral artery Sheath Size: 6 Fr Hemostasis Method: Suture Hemostasis Success: Successful Procedure Medications Start: 12:05 PM Stop: 12:05 PM Medication: Fentanyl Amount: 50 mcg Route: I.V. Start: 12:05 PM Stop: 12:05 PM Medication: Versed Amount: 1 mg Route: I.V. Start: 12:07 PM Stop: 12:07 PM Medication: Versed Amount: 1 mg Route: I.V. Start: 12:09 PM Stop: 12:09 PM Medication: Nitrogylcerin Amount: 200 mcg Route: I.A. Start: 12:48 PM Stop: 12:48 PM Medication: Fentanyl Amount: 25 mcg Route: I.V. Start: 12:48 PM Stop: 12:48 PM Medication: Versed Amount: 1 mg Route: I.V. I, the attending physician, have reviewed and verified all procedure medications. Yes, all medications given per verbal order Report Signatures Finalized by Dr. Tino Wang MD on 09/08/2021 01:32 PM
[2021-09-08] MEDS: clopidogrel 300 mg Tablet 600 MG PO (11:47)
[2021-09-08] MEDS: ondansetron 2 mg/ML SDV 2 mL 4 MG IVP (11:47)
[2021-09-08] MEDS: heparin 5,000 unit/mL INJ 1 mL 4000 UNIT IVP (11:48)
[2021-09-08] MEDS: sodium chloride 0.9% 1,000 ML 999 ML IV (11:50)
[2021-09-08 12:11] LABS: Alanine Aminotransferase 28 U/L (0-41); Alkaline Phosphatase 67 IU/L (40-130); Anion Gap 13.4 (5-19); Aspartate Amino Transferase 33 U/L (0-40); Blood Urea Nitrogen 14 mg/dL (8-23); Calcium 9.4 mg/dL (8.5-10.5); Carbon Dioxide 27 mmol/L (22-29); Chloride 99 mmol/L (98-107); Globulin 2.9 g/dL (1.3-4.6); Glomerular Filtration Rate 97.3 mL/min (90-130); Glucose 175 mg/dL (65-115); Osmolality Calculated 287 mOsm/kg (285-295); Potassium 3.4 mmol/L (3.5-5.1); Sodium 136 mmol/L (136-145); Total Protein 6.9 g/dL (6.6-8.7)
[2021-09-08 12:16] LABS: Troponin(5th) Baseline 367 ng/L (0-15)
--- NOTE | 2021-09-08 13:18 | PM.HP ---
Providers/Chief Complaint Admitting Physician: Felipe Primary Care Provider: Gonzalo Hooker MD Chief Complaint: CHEST PAIN History of Present Illness Bubba Rothman is a 65 year old male with you had an episode of chest discomfort about a week ago. He described it as a pressure sensation without other symptoms. He saw physician but apparently no particular diagnosis was made. The chest discomfort went away. Today he awoke with the recurrence of the pain but it was much worse. He came to the emergency room where his EKG reveals an acute inferior wall WI with ST segment elevation in leads II, 3 [address] F [address] reciprocal ST segment depression in leads I and L. There is also mild amount of ST segment elevation in lead V6. He was given the appropriate doses of the proper medications in the emergency room and transferred directly to the cardiac catheterization laboratory. Review of Systems Narrative: His review of systems is negative. Medications/Allergies Home Medications Medication Instructions Recorded Confirmed Last Taken Type allopurinol 100 mg tablet ea PO 08/15/19 02/11/20 Unknown History benzonatate 200 mg capsule ea PO 08/15/19 02/11/20 Unknown History diclofenac sodium 75 mg mg PO 08/15/19 02/11/20 Unknown History tablet,delayed release docusate sodium 100 mg capsule ea PO 08/15/19 02/11/20 Unknown History gabapentin 300 mg capsule ea PO 08/15/19 02/11/20 Unknown History omeprazole 20 mg capsule,delayed ea PO 08/15/19 02/11/20 Unknown History release hydrocodone 5 mg-acetaminophen 325 1 tab PO Q6H PRN #14 tab 01/02/20 02/11/20 Unknown Rx mg tablet (Sheridan) ondansetron 4 mg disintegrating 4 mg PO Q6H PRN #14 tab 01/02/20 02/11/20 Unknown Rx tablet tamsulosin 0.4 mg capsule (Flomax) 0.4 mg PO DAILY #30 cap 01/06/20 02/11/20 Unknown Rx oxycodone 5 mg tablet 5 mg PO .prn tab 02/11/20 02/11/20 Unknown History prednisone 10 mg tablet mg PO .prn tab 02/11/20 02/11/20 Unknown History sertraline 50 mg tablet mg PO DAILY tab 02/11/20 02/11/20 Unknown History trazodone 50 mg tablet mg PO .at bedtime tab 02/11/20 02/11/20 Unknown History Allergies Allergy/AdvReac Type Severity Reaction Status Date / Time No Known Allergies Allergy Verified 02/11/20 08:50 PFSH Acute PFSH: Medical History Gout Right ureteral stone Surgical History Hx of colonoscopy with polypectomy S/P carpal tunnel release Family History Family/Other Cancer rectal Father Cancer colon Mother , in her 80's Alzheimer disease Social History Smoking and tobacco status: never smoked Alcohol intake: former Marital status: Current occupational status: disabled History of recent travel: No Vitals/I&O/Wt Last Vital Signs Temp 97.9 F 09/08/21 11:59 Pulse 103 H 09/08/21 11:59 Resp 19 H 09/08/21 11:59 BP 167/101 09/08/21 11:59 Pulse Ox 93 09/08/21 11:59 Weight last 48 hrs Weight 208 lb Physical Exam Narrative: GENERAL: Generally looks mildly uncomfortable. His vital signs are stable. He is not hypotensive. HEENT: Exam within normal limits. NECK: Supple without jugular vein distention. The carotid upstroke is normal without bruits. BACK: Exam normal. LUNGS: Clear. HEART: Regular rate and rhythm. ABDOMEN: Benign without organomegaly or tenderness. EXTREMITIES: No edema. NEUROLOGIC: Exam normal. SKIN: Unremarkable. Data : 09/08/21 11:39 09/08/21 11:39 Other data: EKG was reviewed by me. It reveals sinus rhythm. The rate is 100. There is ST elevation in leads II, III and aVF as well as mild ST elevation in lead V6. There is ST depression in leads I and L. A&P Assessment and plan (1) ST elevation myocardial infarction (STEMI): He will go straight to the cardiac catheterization laboratory. I expect the right coronary artery lesion. Status: Acute Attestations Medical Necessity Statement*: Patient is being treated as an inpatient for an acute inferior wall myocardial infarction. He will need a 48-hour hospitalization and will need to stay past 2 midnights. Coding Level of Care Code New Pt Acute Psychiatric Clinical Nurse Specialist for Chg Fwd Patient Type New History Detailed Exam Detailed Medical Decision Making Moderate Complexity Diagnoses ST elevation myocardial infarction (STEMI) I21.3 Time Spent (min) 40
[2021-09-08] MEDS: hyDRALAzine 20 mg/mL INJ 1 mL 10 MG IVP (16:25)
[2021-09-08] MEDS: fentaNYL 50 mcg/mL INJ 2mL IVP (16:27)
[2021-09-08] MEDS: metoprolol tartrate 50 mg Tablet PO (17:28)
[2021-09-08] MEDS: docusate sodium 100 mg Capsule PO (17:29)
--- NOTE | 2021-09-08 17:30 | PC.NURSE ---
received from cardiac bottle labeler at 1300.report received.pt is drowsy..but easily awakened.sr on monitor.right wrist with tr band on and inflated.no hematoma noted.right hand is warm to touch and with brisk capillary refill.palpable pulse noted distal to tr band.right groin with femoral arterial sheath in and intact to pressurized system.drsg is dry and intact.no hematoma noted.right leg is warm to touch and with brisk capillary refill.palpable dp pulse noted.instructed pt in activity restrictions and instructed to notify staff for any bleeding,pain,numbness,or for any concerns at all.pt verb understanding of instructions.
--- NOTE | 2021-09-08 17:41 | PC.NURSE ---
sheath pull: 50 mcgs fentanyl and 10 mg hydralazine given prior to procedure.right groin arterial sheath pulled at 1635 and manual pressure held x 20 min.vss throughout procedure.no hematoma formation noted.right leg remains warm to touch and with brisk capillary refill.palpable dp pulse noted.site dressed with 2x2 gauze and secured with biocclusive drsg.pt tolerated procedure well.instructed to notify staff for any bleeding,pain,numbness,or for any concerns at all.pt verb understanding of instructions
--- NOTE | 2021-09-08 17:53 | PC.NURSE ---
pt in computer but not in pixus...to obtain needed medications.pharmacy,it,and admissions notified.it took quite some time to get the problem figured out..and arterial sheath needed to be pulled...so payam from pharmacy obtained meds from the pharmacy.unable to waste the fentanyl in the pixus due to this.he advised to waste in a note.50 mcg fentanyl wasted by myself and lois andersen.
[2021-09-08 18:59] LABS: Troponin 5 6HR 1350 ng/L (0-15)
[2021-09-08 19:00] LABS: Troponin 5 6HR Delta 983 ng/L (0-12)
--- NOTE | 2021-09-08 19:16 | PC.NURSE ---
right radial tr band slowly deflated and removed at 1730.no hematoma formation noted.site dressed with 2x2 and secured with biocclusive drsg.pt instructed in activity restrictions s/p tr band removal...and instructed to notify staff for any bleeding,pain,numbness or for any concerns at all.pt verb understanding of instructions
[2021-09-09] VITALS (18 sets, daily range): BP systolic 95–166; BP diastolic 50–115; PULSE 63–81; RESP 13–29; TEMP 36.6; O2SAT 84–95
--- NOTE | 2021-09-09 07:17 | PM.PN ---
Subjective Subjective: Bubba was admitted yesterday with an acute inferior wall AL. Stent was placed to his mid right coronary artery. There were no significant lesions in the left main, LAD or circumflex. His left ventricular function is essentially normal. There was hypokinesis of the inferior base. Troponin peaked at 1350. He states he has had an uneventful night. His can of snuff is at the bedside table. No further chest pains. No problems with either entry site. As mentioned, there was an obstruction in the right brachial artery which delayed getting the catheter past this area. The innominate artery was so tortuous one could not negotiate the catheter down to the coronary arteries. The procedure had to be completed through the right femoral artery which delayed the procedure. No chest pain. Medications: Reviewed: Yes Vitals/I&O/Wt Last Vital Signs Temp 97.8 F 09/09/21 07:15 Pulse 70 09/09/21 07:15 Resp 22 H 09/09/21 07:15 BP 122/92 09/09/21 07:15 Pulse Ox 91 09/09/21 07:15 09/08/21 09/09/21 09/09/21 22:59 06:59 14:59 Output Total 600 / 600 Balance -600 / -600 Weight last 48 hrs Weight 208 lb Physical Exam Narrative: GENERAL: In general he looks and feels well with no complaints HEENT: Exam within normal limits. NECK: Supple without jugular vein distention. The carotid upstroke is normal without bruits. BACK: Exam normal. LUNGS: Clear. HEART: Regular rate and rhythm. ABDOMEN: Benign without organomegaly or tenderness. EXTREMITIES: No edema. The right radial site is flat, dry without bleeding or hematoma. The right groin site is flat, dry without bleeding or hematoma. NEUROLOGIC: Exam normal. SKIN: Unremarkable. Data : 09/08/21 11:39 09/08/21 11:39 A&P Assessment and plan (1) ST elevation myocardial infarction (STEMI): Status: Acute (2) S/P right coronary artery (RCA) stent placement: Status: Acute (3) Glucose intolerance: Status: Acute Plan He will be asked to get out of bed today and walk the halls. Medication adjustments as necessary. Plan will be to send him home tomorrow. Attestations Medical Necessity Statement*: Patient needs continued hospitalization for management of an acute inferior wall myocardial infarction Coding Level of Care Code Established Pt Acute Camera Systems Engineer for Osman Lezama Patient Type Established History Detailed Exam Detailed Medical Decision Making Moderate Complexity Diagnoses ST elevation myocardial infarction (STEMI) I21.3 S/P right coronary artery (RCA) stent placement Z95.5 Glucose intolerance E74.39 Time Spent (min) 20
[2021-09-09] MEDS: docusate sodium 100 mg Capsule PO (08:25)
[2021-09-09] MEDS: aspirin 81 mg EC Tablet PO (08:25)
[2021-09-09] MEDS: metoprolol tartrate 50 mg Tablet PO ×2 (08:25→17:23)
[2021-09-09] MEDS: clopidogrel 75 mg Tablet PO (08:26)
--- NOTE | 2021-09-09 10:40 | PC.CHAP ---
Pastoral Care Encounter/Spiritual Assessment Type of Contact [] Declined double end tenon operator visit [] Patient/Family/Request visit [] Outpatient visit [] Follow-up visit [] Physician referral [] Code/Alert [x] Routine visit [] Staff referral [] Actively dying [] Patient sleeping [] Family support [] [] Out of room [] Palliative care [] [x] Receiving care in room [] Pre-surgical visit [] Trauma [] Long length of stay [] ICU visit [] Other: Relational/Emotional Strength [x] Patient feels connected with others/family/visitors/staff [] Distress [] Loneliness/isolation [] Abandonment Spirituality of Patient [x] Person of [place] [] Attends Baptist of their [place] [x] Believes in Prayer [] Reads Bible or Mormonism materials [] There are Spiritual issues to be addressed Flight Superintendent Interventions [x] Prayer [x] Active listening [x] Non-anxious presence [x] Spiritual/emotional support [] Crisis/trauma care [x] Spiritual counseling [] Bereavement support [] Provided bereavement packet [] Provided Bible/devotional materials [] Provided toy/stuffed animal, coloring book to patient or family member [] Provided Communion [] Anointing/[place] [] Salvation [x] Completed spiritual assessment [] Other: Impact on Illness or Injury [] Angry [] Fearful [] Anxious [] Often cries [] Exhaustion [] Unable to work [] Unable to attend restoration [] Unable to walk/stand [] Unable to read [] Unable to drive [] Unable to eat/drink [] Unable to sleep [] Unable to be with family [] Patient intubated [] Other: Summary had tests wautng on results has a good attitude feels good has a Job going home =1 Time spent with patient 10 mins
[2021-09-09] MEDS: atorvastatin 40 mg Tablet 80 MG PO (20:14)
[2021-09-10] VITALS: BP 154/93; PULSE 83; RESP 25; TEMP 37.6; O2SAT 92
[2021-09-10 05:31] VITALS: BP 169/97; PULSE 72; RESP 17; TEMP 37.4; O2SAT 93
[2021-09-10 05:34] VITALS: PULSE 72
--- NOTE | 2021-09-10 06:55 | P.DS_ITS ---
Discharge Providers Date of Admission: 09/08/21 16:35 Date of Discharge: September 10, 2021 Attending Provider at Admission: Tino Wang MD Attending Provider at Discharge: Tino Wang MD Primary Care Provider: Gonzalo Hooker MD Diagnoses at Discharge Discharge Diagnosis (1) ST elevation myocardial infarction (STEMI): Status: Acute (2) S/P right coronary artery (RCA) stent placement: Status: Acute (3) Glucose intolerance: Status: Acute Reason for Visit Reason for Visit: CHEST PAIN Brief History: Patient uses oral tobacco products. He has a history of mild glucose intolerance and hypertension. He had an episode of chest discomfort typical of angina a week prior to admission. The morning of admission the pain recurred was more severe and would not relent. When he came to the emergency room he had ST elevation in leads II, III, aVF and V6. There was reciprocal ST depression in leads I and L. He received the appropriate medications in the emergency room and taken to the cardiac Manager [facility]. Hospital Course Hospital Course Angiography revealed a 90 after balloon angioplasty. The treatment was successful. There was a 40% mid LAD lesion but no other stenoses. His left ventricular function was lower limit of normal with moderate hypokinesis in the inferior base. The procedure was initially attempted from the right radial artery. There was an obstruction at the level of the elbow and the brachial artery but utilizing a soft wire and a guide catheter I was able to pass this. However, at the level of the proximal axillary artery and innominate artery there was such tortuosity that I could not properly advance the guide down toward the coronary arteries. Therefore, we were forced to change to the groin approach. This delayed our timing. The procedure was completed from the groin. There were no complications. Prior to discharge his right radial artery area is flat, dry without hematoma or bleeding. The right groin is flat, dry without hematoma or bleeding. Physical Exam Narrative: GENERAL: He feels well at discharge HEENT: Exam within normal limits. NECK: Supple without jugular vein distention. The carotid upstroke is normal without bruits. BACK: Exam normal. LUNGS: Clear. HEART: Regular rate and rhythm. ABDOMEN: Benign without organomegaly or tenderness. EXTREMITIES: No edema. Both the right radial artery entry site in the right groin entry site are flat, dry without bleeding or hematoma. NEUROLOGIC: Exam normal. SKIN: Unremarkable. 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 Unremarkable AP portable chest. Laboratory Results WBC 6.5 10^3/uL (4.0-10.0) 09/08/21 11:39 RBC 5.31 10^6/uL (4.1-5.3) H 09/08/21 11:39 Hgb 17.7 g/dL (11.7-16.6) H 09/08/21 11:39 Hct 51.4 % (42.0-52.0) 09/08/21 11:39 MCV 96.8 fl (80-94) H 09/08/21 11:39 MCH 33.3 pg (28.0-34.0) 09/08/21 11:39 MCHC 34.4 g/dL (30.0-36.0) 09/08/21 11:39 RDW 13.4 % (12.1-15.1) 09/08/21 11:39 Plt Count 210 10^3/cmm (130-400) 09/08/21 11:39 MPV 10.9 fL (7.4-10.4) H 09/08/21 11:39 Neut % (Auto) 70.6 % 09/08/21 11:39 Lymph % (Auto) 22.9 % 09/08/21 11:39 [place] % (Auto) 5.2 % 09/08/21 11:39 Eos % (Auto) 0.5 % 09/08/21 11:39 Baso % (Auto) 0.6 % 09/08/21 11:39 Neut # (Auto) 4.60 10^3/uL (1.8-7.7) 09/08/21 11:39 Lymph # (Auto) 1.5 10^3/uL (0.8-4.8) 09/08/21 11:39 [place] # (Auto) 0.3 10^3/uL (0.2-0.9) 09/08/21 11:39 Eos # (Auto) 0.0 10^3/uL (0.0-0.8) 09/08/21 11:39 Baso # (Auto) 0.0 10^3/uL (0.0-0.1) 09/08/21 11:39 Nucleated RBC % (auto) 0 % 09/08/21 11:39 Nucleated RBCs # 0.0 /100WBC 09/08/21 11:39 Sodium 136 mmol/L (136-145) 09/08/21 11:39 Potassium 3.4 mmol/L (3.5-5.1) L 09/08/21 11:39 Chloride 99 mmol/L (98-107) 09/08/21 11:39 Carbon Dioxide 27 mmol/L (22-29) 09/08/21 11:39 Anion Gap 13.4 (5-19) 09/08/21 11:39 BUN 14 mg/dL (8-23) 09/08/21 11:39 Creatinine 0.8 mg/dL (0.7-1.2) 09/08/21 11:39 GFR Calculation 97.3 mL/min (90-130) 09/08/21 11:39 Glucose 175 mg/dL (65-115) H 09/08/21 11:39 Calculated Osmolality 287 mOsm/kg (285-295) 09/08/21 11:39 Calcium 9.4 mg/dL (8.5-10.5) 09/08/21 11:39 Total Bilirubin 1.0 mg/dL (0.15-1.2) 09/08/21 11:39 AST 33 U/L (0-40) 09/08/21 11:39 ALT 28 U/L (0-41) 09/08/21 11:39 Alkaline Phosphatase 67 IU/L (40-130) 09/08/21 11:39 Troponin T Baseline 367 ng/L (0-15) H* 09/08/21 11:39 Troponin T 120 Minute 573.0 ng/L (0-15) H 09/08/21 14:08 Delta Troponin T 206.0 ABS# (0-10) H* 09/08/21 14:08 Troponin T Hi Sens 6Hr 1350 ng/L (0-15) H 09/08/21 17:58 Troponin T Hi Sens 6Hr Delta 983 ng/L (0-12) H* 09/08/21 17:58 Total Protein 6.9 g/dL (6.6-8.7) 09/08/21 11:39 Albumin 4.0 g/dL (3.5-5.2) 09/08/21 11:39 Globulin 2.9 g/dL (1.3-4.6) 09/08/21 11:39 Procedures Performed Left heart catheterization, cath, balloon angioplasty and stent to the mid right coronary artery Vitals Last Vital Signs Temp 99.3 F 09/10/21 05:31 Pulse 72 09/10/21 05:34 Resp 17 09/10/21 05:31 BP 169/97 09/10/21 05:31 Pulse Ox 93 09/10/21 05:31 Discharge Plan Discharge Patient Disposition: Home Condition: Stable Prescriptions: New clopidogrel 75 mg Tablet 75 mg PO DAILY 90 Days Qty: 30 4RF aspirin 81 mg Tablet,Delayed Release (Dr/Ec) 81 mg PO DAILY 90 Days Qty: 100 3RF metoprolol tartrate 50 mg Tablet 50 mg PO BID 90 Days Qty: 180 3RF atorvastatin 40 mg Tablet 80 mg PO BEDTIME 90 Days Qty: 30 4RF Continued docusate sodium 100 mg capsule 100 mg PO BID PRN (Reason: Constipation) 0RF allopurinol 100 mg tablet 100 mg PO DAILY 0RF omeprazole 20 mg capsule,delayed release(DR/EC) 20 mg PO DAILY PRN (Reason: Heartburn) 0RF prednisone 10 mg tablet 10 - 20 mg PO DAILY PRN (Reason: flare up) 0RF trazodone 50 mg tablet 50 - 100 mg PO BEDTIME PRN (Reason: Sleep) 0RF Flomax 0.4 mg capsule 0.4 mg PO DAILY Qty: 30 0RF losartan 50 mg tablet 50 mg PO QAM 0RF potassium chloride 20 mEq tablet,ER particles/crystals 20 meq PO QAM 0RF nitroglycerin [Nitrostat] 0.4 mg Tablet, Sublingual 0.4 mg SUBLINGUAL Q5M PRN (Reason: Chest Pain) 0RF Rx Instructions: do not exceed 3 doses per episode gabapentin 600 mg tablet 600 mg PO BEDTIME PRN (Reason: Pain) 0RF Discontinued aspirin 325 mg Tablet 325 mg PO EVERY OTHER DAY 0RF Discharge Orders: Discharge Order (Routine); Ordered 09/10/21 Ordered By: Tino Felipe Referrals: Gonzalo Hooker MD [Primary Care Provider] - Geeta Gonzalez FNP [Nurse Practitioner] - 09/17/21 (Post SD check. Check right radial artery and right femoral artery.) Discharge Diet: Cardiac Discharge Activity: Limit activity as instructed Patient Instructions: Coronary Angioplasty (DC), Heart Healthy Diet (DC), Chest Pain Stoplight, Post Heart Attack Stoplight Activity Restrictions/Additional Instructions: no heavy lifting for 2 weeks. No lifting over 5 pounds with the right upper extremity for 2 days. Gradual increase in activity over 2 weeks. Discharge Attestations Time Spent in Discharge Care*: greater than 30 min Quality Metrics Clinical Quality Measures [ Acute Myocardial Infaction { Clinical Trial Participant: No; Contraindication to aspirin: None; Aspirin prescribed; Contraindication to statin: None; Statin prescribed; Contraindication to PCI: None; PCI performed;}] Coding Level of Care Code Established Pt Acute Chg FW DC note Patient Type Established History Detailed Exam Detailed Medical Decision Making Moderate Complexity Diagnoses ST elevation myocardial infarction (STEMI) I21.3 S/P right coronary artery (RCA) stent placement Z95.5 Glucose intolerance E74.39 Time Spent (min) 34
[2021-09-10 07:25] VITALS: BP 192/116; PULSE 70; RESP 16; TEMP 36.8; O2SAT 94
[2021-09-10] MEDS: aspirin 81 mg EC Tablet PO (07:59)
[2021-09-10] MEDS: metoprolol tartrate 50 mg Tablet PO (07:59)
[2021-09-10] MEDS: docusate sodium 100 mg Capsule PO (07:59)
[2021-09-10] MEDS: clopidogrel 75 mg Tablet PO (07:59)
[2021-09-10 08:39] VITALS: BP 152/94; PULSE 69; RESP 18; O2SAT 97
[2021-09-10 08:45] VITALS: BP 152/94; PULSE 69; RESP 18; O2SAT 97
== END 2021-09-10 09:11 | disposition home or self-care (01) | DRG 247 ==
LOC: ER 11:49 → CSU 14:14 → ER 16:33 → CCL 16:34 → CSU 16:37
PROVIDERS: Family Medicine; Admitting Provider Internal Medicine Cardiovascular Disease; Emergency Provider Emergency Medicine; PCP Family Medicine; Visit Provider Internal Medicine Cardiovascular Disease
PROC: 027034Z Dilation of Coronary Artery, One Artery with Drug-eluting Intraluminal Device, Percutaneous Approach (ICD-10-PCS; principal; 2021-09-08 12:00)
PROC: 027034Z Dilation of Coronary Artery, One Artery with Drug-eluting Intraluminal Device, Percutaneous Approach (ICD-10-PCS; 2021-09-08 12:00)
DX: I21.11 ST elevation (STEMI) myocardial infarction involving right coronary artery (principal); E66.9 Obesity, unspecified; Z68.38 Body mass index [BMI] 38.0-38.9, adult; F17.220 Nicotine dependence, chewing tobacco, uncomplicated; I10 Essential (primary) hypertension; E74.39 Other disorders of intestinal carbohydrate absorption
CPT/HCPCS: 36415; 71045; 80053; 84484; 85025; 93005; 93452; 93458; 96361; 96374; 96375; 99285; C1725; C1769; C1874; C1887; C1894; C9600; J0360; J1644; J2250; J2405; J3010; J3490; J7030; Q9967

== ENCOUNTER → 2021-11-25 09:58 | Outpatient (BNVA) | payer MEDICARE, MEDICAID, SELFPAY | PROVIDERS: PCP Family Medicine; Visit Provider Nurse Practitioner Family | DX: I25.10 Atherosclerotic heart disease of native coronary artery without angina pectoris (principal); Z95.5 Presence of coronary angioplasty implant and graft; I25.5 Ischemic cardiomyopathy; Z98.61 Coronary angioplasty status | CPT/HCPCS: 99213 ==

== ENCOUNTER 2021-11-27 09:27 | Emergency (ER) | payer MEDICARE, MEDICAID, SELFPAY ==
[2021-11-27 09:29] VITALS: PULSE 60; RESP 16; TEMP 36.6; O2SAT 94; BMI 38.0
[2021-11-27 10:09] LABS: Basophils # 0.1 10^3/uL (0.0-0.1); Basophils % 1.1 %; Eosinophils # 0.1 10^3/uL (0.0-0.8); Eosinophils % 2.5 %; Hematocrit 37.3 % (42.0-52.0); Hemoglobin 13.1 g/dL (11.7-16.6); Lymphocytes # 1.8 10^3/uL (0.8-4.8); Mean Corpuscular HGB Conc 35.1 g/dL (30.0-36.0); Mean Corpuscular Hemoglobin 30.7 pg (28.0-34.0); Mean Corpuscular Volume 87.4 fl (80-94); Mean Platelet Volume 11.4 fL (7.4-10.4); Monocytes # 0.5 10^3/uL (0.2-0.9); Monocytes % 9.2 %; Neutrophils # 3.17 10^3/uL (1.8-7.7); Nucleated Red Blood Cells % 0 %; Platelet Count 183 10^3/cmm (130-400); Red Blood Count 4.27 10^6/uL (4.1-5.3); Red Cell Distribution Width 12.4 % (12.1-15.1); White Blood Count 5.7 10^3/uL (4.0-10.0)
[2021-11-27 10:29] LABS: Blood Urea Nitrogen 11 mg/dL (8-23); Calcium 9.1 mg/dL (8.5-10.5); Carbon Dioxide 27 mmol/L (22-29); Chloride 102 mmol/L (98-107); Glomerular Filtration Rate 113.2 mL/min (90-130); Glucose 95 mg/dL (65-115); Osmolality Calculated 289 mOsm/kg (285-295); Sodium 140 mmol/L (136-145)
--- NOTE | 2021-11-27 10:30 | PC.NURSE ---
intermittent cath performed per dr. gerardo salazar. pt tolerated procedure well. approx 50ml output noted.
[2021-11-27] MEDS: sodium chloride 0.9% 1,000 ML 999 ML IV (11:30)
[2021-11-27 11:32] LABS: Blood Urine 3+ (Negative); Glucose Urine UA Norm (Normal); Ketones Urine Negative (Negative); Protein Urine Neg (Negative); Specific Gravity, Urine 1.025 (1.005-1.030); Urine Appearance SL Hazy (CLEAR); Urine Color Dark Yellow (Yellow); pH Urine 5 (5-7)
[2021-11-27 11:33] LABS: Add Urine Culture? Yes; Add Urine Microscopic? YES; Bacteria Urine 1+ /hpf; Bilirubin Urine Neg (Negative); Leukocyte Esterase Urine Negative (Negative); Nitrate Urine Negative (Negative); RBC Urine >100 /hpf (0-2); Squamous Epithelial Cell Urine RARE /hpf (0-5); Urobilinogen Urine Norm (Negative); WBC Urine 0-4 /hpf (0-5)
--- NOTE | 2021-11-27 11:43 | CTR_ITS ---
PROCEDURE INFORMATION: Exam: CT Abdomen And Pelvis Without Contrast Exam date and time: 11/27/2021 12:38 PM Age: 66 years old Clinical indication: Abdominal pain; Localized; Lower; Additional info: Flank pain TECHNIQUE: Imaging protocol: Computed tomography of the abdomen and pelvis without contrast. Radiation optimization: All CT scans at this facility use at least one of these dose optimization techniques: automated exposure control; mA and/or kV adjustment per patient size (includes targeted exams where dose is matched to clinical indication); or iterative reconstruction. COMPARISON: CT kidney stone [id number] 01/02/2020 12:44 AM RADIATION DOSE METRICS: Total DLP (mGy-cm): 1909.42 FINDINGS: Lungs: There are pulmonary parenchymal calcifications consistent with remote granulomatous organism exposure. Liver: Normal. No mass. Gallbladder and bile ducts: The gallbladder has been removed. Pancreas: Normal. No ductal dilation. Spleen: Normal. No splenomegaly. Adrenal glands: Normal. No mass. Kidneys and ureters: There is a punctate calculus in the distal right ureter. Mild fullness of the left renal pelvis and proximal left ureter with associated mild perinephric/periureteral inflammatory stranding.There is a punctate nonobstructing left renal calculus. Stomach and bowel: Unremarkable. No obstruction. No mucosal thickening. Appendix: No evidence of appendicitis. Intraperitoneal space: Unremarkable. No free air. No significant fluid collection. Vasculature: Unremarkable. No abdominal aortic aneurysm. Lymph nodes: Unremarkable. No enlarged lymph nodes. Urinary bladder: Unremarkable as visualized. Reproductive: Unremarkable as visualized. Bones/joints: Unremarkable. No acute fracture. Soft tissues: Unremarkable. CT/CT kidney stone [id number] IMPRESSION: There is a punctate calculus in the distal right ureter with mild obstructive changes as described above.
--- NOTE | 2021-11-27 11:43 | W.ED.ABDPA2 ---
HPI - Abdominal Pain General: Chief Complaint: Abdominal Pain Stated Complaint: DIFF URINATING Time Seen by Provider: 11/27/21 09:29 Source: patient Mode of arrival: ambulatory Limitations: no limitations History of Present Illness: 66-year-old female presents to the emergency room complaining of difficulty urinating she is not able to get his bladder empty overnight. Is complaining of midline suprapubic abdominal discomfort denies fever sweats or chills. States years ago he had a Nephril episode of nephrolithiasis. He has not noticed any hematuria. On arrival here his bedside bladder scan only shows 43 mL in the bladder. Denies any flank pain at this time. MD elicited complaint: abdominal pain Pertinent past history: kidney stones Onset (ago): hour(s) Pain Consistency: intermittent Location: Suprapubic Quality: cramping Radiation: none Exacerbating factors: nothing Relieving factors: nothing Associated Symptoms: Denies anorexia, belching, bloating, change in bowel habits, change in stool character, chills, coffee ground emesis, constipation, GI cramping, diarrhea, dyspepsia, dysuria, excessive flatus, fever(s), heartburn, hematochezia, hematuria, hematemesis, fecal incontinence, loose stools, melena, nausea, poor appetite, syncope and vomiting Review of Systems Const: Denies: fever(s) or chills Card: Denies: syncope GI: Reports: abdominal pain; Denies: nausea, vomiting, hematemesis, coffee ground emesis, heartburn, diarrhea, constipation, bloating, GI cramping, belching, excessive flatus, fecal incontinence, change in bowel habits, change in stool character, hematochezia or melena : Denies: dysuria or hematuria PFSH ED PFSH: Medical History Atherosclerosis of coronary artery Glucose intolerance Gout Right ureteral stone Surgical History Hx of colonoscopy with polypectomy S/P carpal tunnel release Family History Family/Other Cancer rectal Father Cancer colon Mother , in her 80's Alzheimer disease Social History (Reviewed 11/27/21 @ 14:38 by IRAM Toscano Smoking and tobacco status: never smoked Alcohol intake: former Marital status: Current occupational status: disabled History of recent travel: No Physical Exam Const: GENERAL APPEARANCE: cooperative and comfortable ORIENTATION/CONSCIOUSNESS: Yes awake, Yes oriented to person, Yes oriented to place and Yes oriented to time HENMT: COMMON NORMALS: normocephalic, atraumatic and hearing grossly normal bilaterally HEAD & SCALP: normocephalic and atraumatic Neck/C-Spine: COMMON NORMALS: no JVD Resp: COMMON NORMALS: normal respiratory effort, No retractions, No use of accessory muscles and clear to auscultation bilaterally AUSCULTATION: clear to auscultation bilaterally Cardio: COMMON NORMALS: no JVD, regular rate, regular rhythm and No murmurs present (Cardio) RATE: regular rate RHYTHM: regular rhythm GI: COMMON NORMALS: No hepatosplenomegaly present AUSCULTATION: Yes normoactive bowel sounds PALPATION: Yes Tenderness to palpation present (GI) (Suprapubic), No Guarding due to palpation present (GI) and Yes No hepatosplenomegaly present Extremity: COMMON NORMALS: normal to inspection, capillary refill normal, no clubbing, cyanosis or edema, no calf tenderness and no pedal edema Neuro: SENSORIUM/ORIENTATION: Yes oriented to person, Yes oriented to place and Yes oriented to time Skin: COMMON NORMALS: no rashes or lesions noted GENERAL SKIN EXAM: no rashes or lesions noted Course Vital Signs: Vital signs: Vital Signs Temperature 97.8 F 11/27/21 09:29 Pulse Rate 91 11/27/21 13:43 Respiratory Rate 16 11/27/21 13:43 Blood Pressure 169/87 11/27/21 13:43 Pulse Oximetry 93 11/27/21 13:43 MDM - Abdominal Pain Medical Decision Making Nephrolithiasis on the right. Will discharge home with increased dose of tamsulosin and hydrocodone for pain strain urine follow-up with Tavarez return if pain is uncontrolled Medical Records I reviewed the patient's medical records. Lab Data I reviewed the patient's lab results. : 11/27/21 10:00 11/27/21 10:00 Labs/Radiology: Radiology Impressions Abdomen/Pelvis CT 11/27/21 11:43 IMPRESSION: There is a punctate calculus in the distal right ureter with mild obstructive changes as described above. Laboratory Results WBC 5.7 10^3/uL (4.0-10.0) 11/27/21 10:00 RBC 4.27 10^6/uL (4.1-5.3) 11/27/21 10:00 Hgb 13.1 g/dL (11.7-16.6) 11/27/21 10:00 Hct 37.3 % (42.0-52.0) L 11/27/21 10:00 MCV 87.4 fl (80-94) 11/27/21 10:00 MCH 30.7 pg (28.0-34.0) 11/27/21 10:00 MCHC 35.1 g/dL (30.0-36.0) 11/27/21 10:00 RDW 12.4 % (12.1-15.1) 11/27/21 10:00 Plt Count 183 10^3/cmm (130-400) 11/27/21 10:00 MPV 11.4 fL (7.4-10.4) H 11/27/21 10:00 Neut % (Auto) 56.0 % 11/27/21 10:00 Lymph % (Auto) 31.0 % 11/27/21 10:00 [place] % (Auto) 9.2 % 11/27/21 10:00 Eos % (Auto) 2.5 % 11/27/21 10:00 Baso % (Auto) 1.1 % 11/27/21 10:00 Neut # (Auto) 3.17 10^3/uL (1.8-7.7) 11/27/21 10:00 Lymph # (Auto) 1.8 10^3/uL (0.8-4.8) 11/27/21 10:00 [place] # (Auto) 0.5 10^3/uL (0.2-0.9) 11/27/21 10:00 Eos # (Auto) 0.1 10^3/uL (0.0-0.8) 11/27/21 10:00 Baso # (Auto) 0.1 10^3/uL (0.0-0.1) 11/27/21 10:00 Nucleated RBC % (auto) 0 % 11/27/21 10:00 Nucleated RBCs # 0.0 /100WBC 11/27/21 10:00 Sodium 140 mmol/L (136-145) 11/27/21 10:00 Potassium 4.0 mmol/L (3.5-5.1) 11/27/21 10:00 Chloride 102 mmol/L (98-107) 11/27/21 10:00 Carbon Dioxide 27 mmol/L (22-29) 11/27/21 10:00 Anion Gap 15.0 (5-19) 11/27/21 10:00 BUN 11 mg/dL (8-23) 11/27/21 10:00 Creatinine 0.7 mg/dL (0.7-1.2) 11/27/21 10:00 GFR Calculation 113.2 mL/min (90-130) 11/27/21 10:00 Glucose 95 mg/dL (65-115) 11/27/21 10:00 Calculated Osmolality 289 mOsm/kg (285-295) 11/27/21 10:00 Calcium 9.1 mg/dL (8.5-10.5) 11/27/21 10:00 Urine Color Dark yellow (Yellow) 11/27/21 10:29 Urine Appearance Sl hazy (CLEAR) 11/27/21 10:29 Urine pH 5 (5-7) 11/27/21 10:29 Ur Specific [place] 1.025 (1.005-1.030) 11/27/21 10:29 Urine Protein Neg (Negative) 11/27/21 10:29 Urine Glucose (UA) Norm (Normal) 11/27/21 10:29 Urine Ketones Negative (Negative) 11/27/21 10:29 Urine Blood 3+ (Negative) H 11/27/21 10:29 Urine Nitrate Negative (Negative) 11/27/21 10:29 Urine Bilirubin Neg (Negative) 11/27/21 10:29 Urine Urobilinogen Norm mg/dL (Negative) 11/27/21 10:29 Ur Leukocyte Esterase Negative (Negative) 11/27/21 10:29 Urine RBC >100 /hpf (0-2) H 11/27/21 10:29 Urine WBC 0-4 /hpf (0-5) H 11/27/21 10:29 Ur Squamous Epith Cells Rare /hpf (0-5) 11/27/21 10:29 Amorphous Sediment Not Reportable 11/27/21 10:29 Urine Bacteria 1+ /hpf (NONE) H 11/27/21 10:29 Discharge Plan Discharge Patient Disposition: Home Clinical Impression: Right nephrolithiasis Condition: Stable Prescriptions: New hydrocodone-acetaminophen 5-325 mg tablet 1 tab PO Q6H PRN (Reason: pain) Qty: 20 0RF Changed Flomax 0.4 mg capsule 0.8 mg PO DAILY Qty: 30 0RF No Action docusate sodium 100 mg capsule 100 mg PO BID PRN (Reason: Constipation) 0RF allopurinol 100 mg tablet 100 mg PO DAILY 0RF omeprazole 20 mg capsule,delayed release(DR/EC) 20 mg PO DAILY PRN (Reason: Heartburn) 0RF prednisone 10 mg tablet 10 - 20 mg PO DAILY PRN (Reason: flare up) 0RF trazodone 50 mg tablet 50 - 100 mg PO BEDTIME PRN (Reason: Sleep) 0RF losartan 50 mg tablet 100 mg PO QAM 0RF potassium chloride 20 mEq tablet,ER particles/crystals 20 meq PO QAM 0RF nitroglycerin [Nitrostat] 0.4 mg Tablet, Sublingual 0.4 mg SUBLINGUAL Q5M PRN (Reason: Chest Pain) 0RF Rx Instructions: do not exceed 3 doses per episode gabapentin 600 mg tablet 600 mg PO BEDTIME PRN (Reason: Pain) 0RF atorvastatin 40 mg Tablet 80 mg PO BEDTIME 90 Days Qty: 30 4RF clopidogrel 75 mg Tablet 75 mg PO DAILY 90 Days Qty: 30 4RF aspirin 81 mg Tablet,Delayed Release (Dr/Ec) 81 mg PO DAILY 90 Days Qty: 100 3RF metoprolol tartrate 50 mg Tablet 50 mg PO BID 90 Days Qty: 180 3RF Discharge Orders: Discharge ED (Routine); Ordered 11/27/21 Ordered By: Severiano Sanchez Referrals: Gonzalo Hooker MD [Primary Care Provider] - Discharge Diet: Usual diet Discharge Activity: Increase activity as tolerated Patient Instructions: Opioid Safety Activity Restrictions/Additional Instructions: residence manager will make arrangements for her to follow-up with Dr. Tavarez next week. Strain urine to collect stone. Coding Level of Care Code ED Assembler Fluorescent Lights for Chg Fwd Exam Comprehensive
[2021-11-27 12:19] VITALS: RESP 28
[2021-11-27] MEDS: morphine 4 mg/mL SDV 1 mL IVP (12:19)
[2021-11-27] MEDS: ondansetron 2 mg/ML SDV 2 mL 4 MG IVP (12:19)
[2021-11-27 12:43] VITALS: PULSE 70; RESP 14; O2SAT 96
--- NOTE | 2021-11-27 13:10 | PC.NURSE ---
notified dr. carrillo of pt bp of 215/107 vo to decrease systolic bp to below 180 and continue with dc.
[2021-11-27] MEDS: amlodipine 10 mg Tablet PO (13:15)
[2021-11-27] MEDS: hyDRALAzine 20 mg/mL INJ 1 mL IVP (13:16)
[2021-11-27 13:43] VITALS: BP 169/87; PULSE 91; RESP 16; O2SAT 93
--- NOTE | 2021-11-28 08:03 | DCPLANNER ---
Addendum entered by Alina Trujillo 01/02/22 15:30: Patient had a follow up appointment scheduled for 12.02.[address] Tavarez at urology - patient did attend appointment. Original Note: sales activity manager had message to schedule a follow up appointment for patient with urology. sales activity manager sent patients information to the front office staff at urology. Patients information will be printed and reviewed. Clinic will call patient with appointment information.
== END 2021-11-27 13:50 | disposition home or self-care (01) ==
PROVIDERS: Emergency Provider Family Medicine; PCP Family Medicine
DX: N20.0 Calculus of kidney (principal)
CPT/HCPCS: 51798; 74176; 80048; 81001; 85025; 87086; 96361; 96374; 96375; 99284; J0360; J2270; J2405; J7030

== ENCOUNTER 2021-12-02 09:19 | Outpatient (CLI) | payer MEDICARE, MEDICAID, SELFPAY ==
--- NOTE | 2021-12-02 09:27 | XR_ITS ---
WS: [id number] Exam: XR KUB [id number] Date/Time of Exam: 12/02/2021 9:27 AM Reason For Exam: STONE No bowel obstruction or free air. No sign of organ enlargement. Regional bony structures are intact. XR/XR KUB [id number] IMPRESSION: 1. No acute abdominal process.
== END 2021-12-02 09:20 | disposition home or self-care (01) ==
LOC: RAD 09:21
PROVIDERS: PCP Family Medicine; Visit Provider Urology
DX: N20.2 Calculus of kidney with calculus of ureter (principal)
CPT/HCPCS: 74018; 81003; 99213

== ENCOUNTER 2022-06-28 06:49 | Emergency (ER) | payer MEDICARE, MEDICAID, SELFPAY ==
[2022-06-28] VITALS (15 sets, daily range): BP systolic 121–215; BP diastolic 80–121; PULSE 63–95; RESP 20–27; TEMP 36.6; O2SAT 92–96; BMI 38.4
--- NOTE | 2022-06-28 06:58 | XR_ITS ---
WS: [id number] Portable AP upright chest, 06/28/2022 Clinical Data: dyspnea/cough Comparison: Portable chest, 09/08/2021 Findings: No nodules, masses or effusions are seen. The heart is normal. The pulmonary vascularity is not increased. No pneumonia or pneumothorax is seen. The aortic arch and descending thoracic aorta s how mild tortuosity. Monitor leads are on the chest wall. XR/XR chest 1V portable [id number] Impression: Atherosclerosis.
--- NOTE | 2022-06-28 07:06 | W.ED.GENADLT ---
HPI - General Adult General: Chief complaint: General Medical Stated complaint: htn Time Seen by Provider: 06/28/22 06:58 Source: patient Mode of arrival: ambulatory History of Present Illness: 66-year-old male presents to the emergency room with complaints of elevated blood pressure. Is not getting any of his medicines last 2 days. He is normally on metoprolol and losartan. He did not have any side effects or problem with the medicines he has been moving so he just stopped taking them. He also states last few nights he has been waking up with complaints of feeling like he cannot breathe he is having to what he describes as fight for air. He sits up but he is able to recover fairly quickly. He is not on CPAP urgency nor has he previously been diagnosed with sleep apnea. Onset (ago): day(s) Severity: moderate Relieving factors: none Exacerbating factors: none Associated symptoms: Deny chest pain, confusion, cough, diaphoresis, decreased appetite, dyspnea, fevers/chills, headache(s), malaise, nausea, rash, palpitations, seizures, short of breath, syncope, vomiting or weakness Treatments prior to arrival: none Review of Systems Const: Denies: fever(s), chills, malaise or diaphoresis ENMT: Denies: throat pain, ear or mastoid pain, nasal discharge or nasal congestion Card: Denies: chest pain, palpitations or syncope Resp: Denies: dyspnea GI: Denies: abdominal pain, nausea or vomiting : Denies: flank pain, difficulty urinating, dysuria, urinary frequency or urinary urgency Skin/Breast: Denies: rash Neuro: Denies: headache(s) or confusion PFS ED PFSH: Medical History Atherosclerosis of coronary artery Glucose intolerance Gout Right ureteral stone Surgical History Hx of colonoscopy with polypectomy S/P carpal tunnel release Family History Family/Other Cancer rectal Father Cancer colon Mother , in her 80's Alzheimer disease Social History Smoking and tobacco status: never smoked Alcohol intake: former Marital status: Current occupational status: disabled History of recent travel: No Physical Exam Const: COMMON NORMALS: no acute distress GENERAL APPEARANCE: cooperative and comfortable ORIENTATION/CONSCIOUSNESS: Yes awake, Yes oriented to person, Yes oriented to place and Yes oriented to time HENMT: COMMON NORMALS: normocephalic, atraumatic and hearing grossly normal bilaterally HEAD & SCALP: normocephalic and atraumatic Neck/C-Spine: COMMON NORMALS: no JVD Resp: COMMON NORMALS: normal respiratory effort, No retractions, No use of accessory muscles and clear to auscultation bilaterally AUSCULTATION: clear to auscultation bilaterally Cardio: COMMON NORMALS: no JVD, regular rate, regular rhythm and No murmurs present (Cardio) RATE: regular rate RHYTHM: regular rhythm GI: COMMON NORMALS: Soft to palpation and No hepatosplenomegaly present AUSCULTATION: Yes normoactive bowel sounds PALPATION: Yes Soft to palpation, No Tenderness to palpation present (GI), No Guarding due to palpation present (GI) and Yes No hepatosplenomegaly present Extremity: COMMON NORMALS: normal to inspection, capillary refill normal, no clubbing, cyanosis or edema, no calf tenderness and no pedal edema Neuro: SENSORIUM/ORIENTATION: Yes oriented to person, Yes oriented to place and Yes oriented to time Skin: COMMON NORMALS: no rashes or lesions noted GENERAL SKIN EXAM: no rashes or lesions noted Course Vital Signs: Vital signs: Vital Signs Temperature 97.9 F 06/28/22 06:50 Pulse Rate 91 06/28/22 07:35 Respiratory Rate 27 H 06/28/22 07:35 Blood Pressure 211/107 06/28/22 07:30 Pulse Oximetry 95 06/28/22 07:35 Oxygen Delivery Me thod 06/28/22 06:50 MDM - General Adult Medical Decision Making Patient has been taking his blood pressure medicine the last couple of days. He is experiencing rebound hypertension responded well to medications given in the emergency room his blood pressure is well controlled this point will discharge home on amlodipine 2.5 mg daily as well as resuming his metoprolol and losartan. Discussed with the patient the importance of taking metoprolol regularly or he can cause some rebound hypertension. He expressed understanding. Also recommend that he monitor his blood pressure at home take the logbooks to his next doctor's visit to review with his primary care provider. He should see his doctor within the next 7 to 10 days to review blood pressure control. Additionally recommend that he be evaluated for sleep apnea. Medical Records I reviewed the patient's medical records. Lab Data I reviewed the patient's lab results. 06/28/22 06:40 06/28/22 06:40 Radiology Impressions Chest X-Ray 06/28/22 06:58 Impression: Atherosclerosis. Laboratory Results WBC 5.3 10^3/uL (4.0-10.0) 06/28/22 06:40 RBC 4.93 10^6/uL (4.1-5.3) 06/28/22 06:40 Hgb 16.1 g/dL (11.7-16.6) 06/28/22 06:40 Hct 46.4 % (42.0-52.0) 06/28/22 06:40 MCV 94.1 fl (80-94) H 06/28/22 06:40 MCH 32.7 pg (28.0-34.0) 06/28/22 06:40 MCHC 34.7 g/dL (30.0-36.0) 06/28/22 06:40 RDW 12.8 % (12.1-15.1) 06/28/22 06:40 Plt Count 186 10^3/cmm (130-400) 06/28/22 06:40 MPV 10.6 fL (7.4-10.4) H 06/28/22 06:40 Neut % (Auto) 55.8 % 06/28/22 06:40 Lymph % (Auto) 31.8 % 06/28/22 06:40 [place] % (Auto) 9.1 % 06/28/22 06:40 Eos % (Auto) 2.3 % 06/28/22 06:40 Baso % (Auto) 0.8 % 06/28/22 06:40 Neut # (Auto) 2.93 10^3/uL (1.8-7.7) 06/28/22 06:40 Lymph # (Auto) 1.7 10^3/uL (0.8-4.8) 06/28/22 06:40 [place] # (Auto) 0.5 10^3/uL (0.2-0.9) 06/28/22 06:40 Eos # (Auto) 0.1 10^3/uL (0.0-0.8) 06/28/22 06:40 Baso # (Auto) 0.0 10^3/uL (0.0-0.1) 06/28/22 06:40 Nucleated RBC % (auto) 0 % 06/28/22 06:40 Nucleated RBCs # 0.0 /100WBC 06/28/22 06:40 Sodium 137 mmol/L (136-145) 06/28/22 06:40 Potassium 3.5 mmol/L (3.5-5.1) 06/28/22 06:40 Chloride 101 mmol/L (98-107) 06/28/22 06:40 Carbon Dioxide 26 mmol/L (22-29) 06/28/22 06:40 Anion Gap 13.5 (5-19) 06/28/22 06:40 BUN 14 mg/dL (8-23) 06/28/22 06:40 Creatinine 0.6 mg/dL (0.7-1.2) L 06/28/22 06:40 GFR Calculation 135.2 mL/min (90-130) H 06/28/22 06:40 Glucose 103 mg/dL (65-115) 06/28/22 06:40 Calculated Osmolality 285 mOsm/kg (285-295) 06/28/22 06:40 Calcium 9.1 mg/dL (8.5-10.5) 06/28/22 06:40 Total Bilirubin 0.7 mg/dL (0.15-1.2) 06/28/22 06:40 AST 32 U/L (0-40) 06/28/22 06:40 ALT 29 U/L (0-41) 06/28/22 06:40 Alkaline Phosphatase 85 U/L (40-130) 06/28/22 06:40 Total Protein 7.8 g/dL (6.6-8.7) 06/28/22 06:40 Albumin 4.3 g/dL (3.5-5.2) 06/28/22 06:40 Globulin 3.5 g/dL (1.3-4.6) 06/28/22 06:40 Discharge Plan Discharge Patient Disposition: Home Clinical Impression: Benign essential HTN Condition: Stable Prescriptions: New amlodipine 2.5 mg tablet 2.5 mg PO DAILY Qty: 30 0RF No Action docusate sodium 100 mg capsule 100 mg PO BID PRN (Reason: Constipation) allopurinol 100 mg tablet 100 mg PO DAILY omeprazole 20 mg capsule,delayed release(DR/EC) 20 mg PO DAILY trazodone 50 mg tablet 150 mg PO BEDTIME PRN (Reason: Sleep) potassium chloride 20 mEq tablet,ER particles/crystals 20 meq PO QAM nitroglycerin [Nitrostat] 0.4 mg Tablet, Sublingual 0.4 mg SUBLINGUAL Q5M PRN (Reason: Chest Pain) Rx Instructions: do not exceed 3 doses per episode gabapentin 600 mg tablet 600 mg PO BEDTIME PRN (Reason: Pain) clopidogrel 75 mg Tablet 75 mg PO DAILY 90 Days Qty: 30 4RF aspirin 81 mg Tablet,Delayed Release (Dr/Ec) 81 mg PO DAILY 90 Days Qty: 100 3RF metoprolol succinate 50 mg tablet extended release 24 hr 50 mg PO BID losartan 100 mg tablet 100 mg PO DAILY atorvastatin 40 mg tablet 40 mg PO BEDTIME Flomax 0.4 mg capsule 0.4 mg PO DAILY Discharge Orders: Discharge ED (Routine); Ordered 06/28/22 Ordered By: Severiano Sanchez Referrals: Gonzalo Hooker MD [Primary Care Provider] - Discharge Diet: Usual diet Discharge Activity: Resume usual activity Patient Instructions: Opioid Safety, Pain Management Activity Restrictions/Additional Instructions: You are seen today for elevated blood pressure. It is very important with your blood pressure medications that you take them regularly. Resume your metoprolol and losartan as previously prescribed. In addition we will add amlodipine 2.5 mg once a day. Recommend that you follow-up with your primary care provider to review your blood pressure within the next week. If possible monitor your blood pressure with a home blood pressure machine and keep a log to show your primary care doctor when you follow-up. If you have any worsening problems return to the emergency room or your primary care doctor's office. Coding Level of Care Code ED Machine Printer Hose for Osman Lezama Exam Comprehensive
[2022-06-28] MEDS: hyDRALAzine 20 mg/mL INJ 1 mL IVP (07:09)
[2022-06-28] MEDS: enalaprilat 1.25 mg/mL Inj IVP (07:10)
--- NOTE | 2022-06-28 07:12 | PC.NURSE ---
patient placed on telemetry monitor, continuous pulse ox, and BP monitoring. patient denies any pain at this time
--- NOTE | 2022-06-28 07:22 | ECG_ITS ---
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 Measurements Intervals [place] Rate: 88 P: 40 NC: 179 QRS: 15 QRSD: 100 T: 15 QT: 383 QTc: 465 Interpretive Statements SINUS RHYTHM NONSPECIFIC ST & T-WAVE ABNORMALITY Compared to ECG 09/08/2021 11:38:34 T-wave abnormality now present Sinus tachycardia no longer present Myocardial infarct finding no longer present Electronically Signed On 06-28-2022 14:44:33 STAMP PRESS OPERATOR by Mati De Souza M.D. [id number]
[2022-06-28 07:30] LABS: Basophils % 0.8 %; Eosinophils # 0.1 10^3/uL (0.0-0.8); Eosinophils % 2.3 %; Hematocrit 46.4 % (42.0-52.0); Hemoglobin 16.1 g/dL (11.7-16.6); Lymphocytes # 1.7 10^3/uL (0.8-4.8); Lymphocytes % 31.8 %; Mean Corpuscular HGB Conc 34.7 g/dL (30.0-36.0); Mean Corpuscular Hemoglobin 32.7 pg (28.0-34.0); Mean Corpuscular Volume 94.1 fl (80-94); Mean Platelet Volume 10.6 fL (7.4-10.4); Monocytes # 0.5 10^3/uL (0.2-0.9); Monocytes % 9.1 %; Neutrophils # 2.93 10^3/uL (1.8-7.7); Neutrophils % 55.8 %; Nucleated Red Blood Cells % 0 %; Platelet Count 186 10^3/cmm (130-400); Red Blood Count 4.93 10^6/uL (4.1-5.3); Red Cell Distribution Width 12.8 % (12.1-15.1); White Blood Count 5.3 10^3/uL (4.0-10.0)
[2022-06-28 07:51] LABS: Alanine Aminotransferase 29 U/L (0-41); Albumin Level 4.3 g/dL (3.5-5.2); Alkaline Phosphatase 85 U/L (40-130); Anion Gap 13.5 (5-19); Aspartate Amino Transferase 32 U/L (0-40); Blood Urea Nitrogen 14 mg/dL (8-23); Calcium 9.1 mg/dL (8.5-10.5); Carbon Dioxide 26 mmol/L (22-29); Chloride 101 mmol/L (98-107); Globulin 3.5 g/dL (1.3-4.6); Glomerular Filtration Rate 135.2 mL/min (90-130); Glucose 103 mg/dL (65-115); Osmolality Calculated 285 mOsm/kg (285-295); Potassium 3.5 mmol/L (3.5-5.1); Sodium 137 mmol/L (136-145); Total Bilirubin 0.7 mg/dL (0.15-1.2); Total Protein 7.8 g/dL (6.6-8.7)
== END 2022-06-28 08:26 | disposition home or self-care (01) ==
PROVIDERS: Emergency Provider Family Medicine; PCP Family Medicine
DX: I10 Essential (primary) hypertension (principal); Z79.82 Long term (current) use of aspirin; Z79.02 Long term (current) use of antithrombotics/antiplatelets; I25.10 Atherosclerotic heart disease of native coronary artery without angina pectoris
CPT/HCPCS: 71045; 80053; 85025; 93005; 96374; 96375; 99285; J0360; J3490

== ENCOUNTER 2022-07-19 11:00 | Outpatient (CLI) | payer MEDICARE, MEDICAID, SELFPAY | END 2022-07-19 11:01 | disposition home or self-care (01) | LOC: SLEEP 07-20 12:20 | PROVIDERS: PCP Family Medicine; Visit Provider Family Medicine | DX: G47.10 Hypersomnia, unspecified (principal) | CPT/HCPCS: G0399 ==

== ENCOUNTER → 2023-03-22 12:35 | Outpatient (BNVA) | payer MEDICARE, MEDICAID, SELFPAY | PROVIDERS: PCP Family Medicine; Visit Provider Internal Medicine Cardiovascular Disease | DX: I25.10 Atherosclerotic heart disease of native coronary artery without angina pectoris (principal); Z95.5 Presence of coronary angioplasty implant and graft; I25.2 Old myocardial infarction | CPT/HCPCS: 99213 ==

== ENCOUNTER 2023-05-11 18:40 | Emergency (ER) | payer MEDICARE, MEDICAID, SELFPAY ==
--- NOTE | 2023-05-11 18:38 | ECG_ITS ---
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 Measurements Intervals [place] Rate: 58 P: 40 SD: 165 QRS: 30 QRSD: 100 T: 56 QT: 444 QTc: 438 Interpretive Statements SINUS BRADYCARDIA MINIMAL ST DEPRESSION [0.025+ mV ST DEPRESSION] Compared to ECG 06/28/2022 07:22:20 ST (T wave) deviation now present Sinus rhythm no longer present T-wave abnormality no longer present Electronically Signed On 05-12-2023 6:51:51 MACHINE SETTER by Vanessa Humphrey M.D. [id number]
--- NOTE | 2023-05-11 18:44 | XRR_ITS ---
PROCEDURE INFORMATION: Exam: XR Chest Exam date and time: 05/11/2023 7:28 PM Age: 67 years old Clinical indication: Chest wall pain; Additional info: Cp TECHNIQUE: Imaging protocol: Radiologic exam of the chest. Views: 1 view. COMPARISON: CR XR chest 1V portable [id number] 06/28/2022 7:53 AM FINDINGS: Lungs: No consolidation. Pleural spaces: No large pleural effusion. No pneumothorax. Heart/Mediastinum: Unremarkable cardiomediastinal silhouette. Bones/joints: No acute abnormality. XR/XR chest 1V portable [id number] IMPRESSION: No acute findings.
[2023-05-11 19:00] VITALS: BMI 38.4
[2023-05-11 19:03] VITALS: BP 110/66; PULSE 68; RESP 16; TEMP 36.6; O2SAT 93
--- NOTE | 2023-05-11 19:10 | W.ED.CHESTPA ---
HPI - Chest Pain General: Chief Complaint: Chest Pain Stated Complaint: chest pain Time Seen by Provider: 05/11/23 18:59 History of Present Illness: Patient presents to the ER by EMS with complaints of sharp chest pains intermittent x 3 days. Patient is not currently having chest pain now. EMS did give the patient 324 mg of aspirin. When he does have the pain it is not radiating and stays in the left chest. Patient denies any nausea vomiting diaphoresis or shortness of breath. Patient does state he had a stent placed approximately a year and a half ago. And also has a stress test scheduled for tomorrow morning. Patient has seen Dr. Wang cardiology in the office. Review of Systems General: Reports: 10 or more systems reviewed and unremarkable except in HPI and below PFSH ED PFSH: Medical History Atherosclerosis of coronary artery Glucose intolerance Gout Right ureteral stone Surgical History Hx of colonoscopy with polypectomy S/P carpal tunnel release Family History Family/Other Cancer rectal Father Cancer colon Mother , in her 80's Alzheimer disease Social History Smoking and tobacco/nicotine status: never used tobacco/nicotine Alcohol intake: former Substance/Drug Use: never Marital status: Current occupational status: disabled Physical Exam Const: COMMON NORMALS: no acute distress, average body habitus, patient oriented x3, no limitations, healthy appearing, alert and well nourished HENMT: COMMON NORMALS: normocephalic, atraumatic, hearing grossly normal bilaterally, external ears normal, Normal external nose present, moist oral mucous membranes and oropharynx normal HEAD & SCALP: normocephalic and atraumatic NOSE: Normal external nose present EXTERNAL EAR: Yes external ears normal Neck/C-Spine: COMMON NORMALS: full ROM, no lymphadenopathy, supple, no meningeal signs, no JVD and Thyroid normal THYROID: Thyroid normal Chest: COMMONS NORMALS: normal inspection of the chest; negative for normal palpation of entire chest wall (Palpation of left anteriLeft sternal region reproduces patient's chest pain) Resp: COMMON NORMALS: normal respiratory effort, No retractions, No use of accessory muscles and clear to auscultation bilaterally AUSCULTATION: clear to auscultation bilaterally Cardio: COMMON NORMALS: no JVD, regular rate, regular rhythm, S1 normal heart sound present, S2 normal heart sound present, No gallops present (Cardio), No clicks present (Cardio), No murmurs present (Cardio) and No rub (Cardio) RATE: regular rate RHYTHM: regular rhythm HEART SOUNDS: S1 normal heart sound present and S2 normal heart sound present GI: COMMON NORMALS: Normal to inspection, nondistended, normoactive bowel sounds present, Soft to palpation, non-tender, No hepatosplenomegaly present and no masses PALPATION: Yes Soft to palpation and Yes No hepatosplenomegaly present Neuro: COMMON NORMALS: patient oriented x3 SENSORIUM/ORIENTATION: Yes alert MENINGEAL SIGNS: Yes no meningeal signs Course Vital Signs: Vital signs: Vital Signs Temperature 97.9 F 05/11/23 19:03 Pulse Rate 60 05/11/23 21:12 Respiratory Rate 19 H 05/11/23 21:12 Blood Pressure 128/77 05/11/23 21:12 Pulse Oximetry 95 05/11/23 21:12 Oxygen Delivery Me thod Room Air 05/11/23 21:12 MDM - Chest Pain Medical Decision Making Patient presents to the ER with left-sided chest pain that is reproducible with palpation that started 2 to 3 days ago. It is intermittent nothing brings it on and nothing takes it away. Patient was worked up in a standard cardiac fashion with serial EKGs labs and chest x-ray. All of which were essentially benign. With a delta troponin being 0.45. Patient was stable during his stay here in ER patient be discharged home. Patient already has a stress test tomorrow morning. Patient should keep that appointment. Differential Diagnosis Unlikely acute massive pulmonary embolism, acute respiratory failure, acute myocardial infarction, cardiac arrest or sudden cardiac Medical Records I reviewed the patient's medical records. Lab Data I reviewed the patient's lab results. 05/11/23 19:12 05/11/23 19:12 Radiology Impressions Chest X-Ray 05/11/23 18:44 IMPRESSION: No acute findings. Laboratory Results WBC 5.52 10^3/uL (3.29-11.43) 05/11/23 19:12 RBC 4.56 10^6/uL (3.85-5.65) 05/11/23 19:12 Hgb 15.40 g/dL (11.27-16.99) 05/11/23 19:12 Hct 44.5 % (37-53) 05/11/23 19:12 MCV 97.6 fl (82-101) 05/11/23 19:12 MCH 33.8 pg (27-33) H 05/11/23 19:12 MCHC 34.6 g/dL (30-55) 05/11/23 19:12 RDW 12.7 % (12.1-15.1) 05/11/23 19:12 Plt Count 240 10^3/cmm (157-399) 05/11/23 19:12 MPV 10.5 fL (7.4-10.4) H 05/11/23 19:12 Neut % (Auto) 37.7 % 05/11/23 19:12 Lymph % (Auto) 46.4 % 05/11/23 19:12 [place] % (Auto) 10.0 % 05/11/23 19:12 Eos % (Auto) 3.4 % 05/11/23 19:12 Baso % (Auto) 2.0 % 05/11/23 19:12 Neut # (Auto) 2.08 10^3/uL (1.8-7.7) 05/11/23 19:12 Lymph # (Auto) 2.6 10^3/uL (0.8-4.8) 05/11/23 19:12 [place] # (Auto) 0.6 10^3/uL (0.2-0.9) 05/11/23 19:12 Eos # (Auto) 0.2 10^3/uL (0.0-0.8) 05/11/23 19:12 Baso # (Auto) 0.1 10^3/uL (0.0-0.1) 05/11/23 19:12 Nucleated RBC % (auto) 0 % 05/11/23 19:12 Nucleated RBCs # 0.0 /100WBC 05/11/23 19:12 Sodium 137 mmol/L (136-145) 05/11/23 19:12 Potassium 3.8 mmol/L (3.5-5.1) 05/11/23 19:12 Chloride 105 mmol/L (98-107) 05/11/23 19:12 Carbon Dioxide 17 mmol/L (22-29) L 05/11/23 19:12 Anion Gap 18.8 (5-19) 05/11/23 19:12 BUN 12 mg/dL (8-23) 05/11/23 19:12 Creatinine 1.0 mg/dL (0.7-1.2) 05/11/23 19:12 GFR Calculation 74.8 mL/min (90-130) L 05/11/23 19:12 Glucose 87 mg/dL (65-115) 05/11/23 19:12 Calculated Osmolality 283 mOsm/kg (285-295) L 05/11/23 19:12 Calcium 8.6 mg/dL (8.5-10.5) 05/11/23 19:12 Total Bilirubin 0.4 mg/dL (0.15-1.2) 05/11/23 19:12 AST 43 U/L (0-40) H 05/11/23 19:12 ALT 53 U/L (0-41) H 05/11/23 19:12 Alkaline Phosphatase 72 U/L (40-130) 05/11/23 19:12 Troponin T Baseline 8 ng/L (0-15) 05/11/23 19:12 Troponin T 120 Minute 8.45 ng/L (0-15) 05/11/23 21:02 Delta Troponin T 0.45 ABS# (0-10) 05/11/23 21:02 Total Protein 7.1 g/dL (6.6-8.7) 05/11/23 19:12 Albumin 3.7 g/dL (3.5-5.2) 05/11/23 19:12 Globulin 3.4 g/dL (1.3-4.6) 05/11/23 19:12 Lipase 62 U/L (13-60) H 05/11/23 19:12 All radiology interpretation(s) finalized by discharge EKG Data EKG 1: I personally reviewed and interpreted this EKG as follows: EKG interpretation date: 05/11/23 EKG interpretation time: 18:38 Prior EKG tracings: not available for review Interpretation: EKG shows ventricular rate 58 beats minute, VT interval 165, QRS 100, QTc of 438, sinus bradycardia, minimal ST depression EKG 2: I personally reviewed and interpreted this EKG as follows: EKG interpretation date: 05/11/23 EKG interpretation time: 21:00 Prior EKG tracings: available for review Interpretation: EKG showed ventricular rate 55 bpm, VT interval 177, QRS duration 99, QTc of 429, sinus bradycardia, nonspecific ST and T wave abnormality Discharge Plan Discharge Patient Disposition: Home Clinical Impression: Chest pain Condition: Stable Prescriptions: No Action docusate sodium 100 mg capsule 100 mg PO BID PRN (Reason: Constipation) allopurinol 100 mg tablet 100 mg PO DAILY omeprazole 20 mg capsule,delayed release(DR/EC) 20 mg PO DAILY trazodone 50 mg tablet 150 mg PO BEDTIME PRN (Reason: Sleep) potassium chloride 20 mEq tablet,ER particles/crystals 20 meq PO QAM nitroglycerin [Nitrostat] 0.4 mg Tablet, Sublingual 0.4 mg SUBLINGUAL Q5M PRN (Reason: Chest Pain) Rx Instructions: do not exceed 3 doses per episode gabapentin 600 mg tablet 600 mg PO BEDTIME PRN (Reason: Pain) clopidogrel 75 mg Tablet 75 mg PO DAILY 90 Days Qty: 30 4RF aspirin 81 mg Tablet,Delayed Release (Dr/Ec) 81 mg PO DAILY 90 Days Qty: 100 3RF metoprolol succinate 50 mg tablet extended release 24 hr 50 mg PO BID losartan 100 mg tablet 100 mg PO DAILY atorvastatin 40 mg tablet 40 mg PO BEDTIME Flomax 0.4 mg capsule 0.4 mg PO DAILY amlodipine 2.5 mg tablet 2.5 mg PO DAILY Qty: 30 0RF Discharge Orders: Discharge ED (Routine); Ordered 05/11/23 Ordered By: Eduardo Burk Referrals: Gonzalo Hooker MD [Primary Care Provider] - 1 week Patient Instructions: Chest Pain (ED) Coding Level of Care Code ED Manager Medicare Marketing for Osman Lezama
[2023-05-11 19:20] LABS: Basophils # 0.1 10^3/uL (0.0-0.1); Eosinophils # 0.2 10^3/uL (0.0-0.8); Eosinophils % 3.4 %; Hematocrit 44.5 % (37-53); Lymphocytes # 2.6 10^3/uL (0.8-4.8); Lymphocytes % 46.4 %; Mean Corpuscular HGB Conc 34.6 g/dL (30-55); Mean Corpuscular Hemoglobin 33.8 pg (27-33); Mean Corpuscular Volume 97.6 fl (82-101); Mean Platelet Volume 10.5 fL (7.4-10.4); Monocytes # 0.6 10^3/uL (0.2-0.9); Neutrophils # 2.08 10^3/uL (1.8-7.7); Neutrophils % 37.7 %; Nucleated Red Blood Cells % 0 %; Platelet Count 240 10^3/cmm (157-399); Red Blood Count 4.56 10^6/uL (3.85-5.65); Red Cell Distribution Width 12.7 % (12.1-15.1); White Blood Count 5.52 10^3/uL (3.29-11.43)
[2023-05-11 19:37] LABS: Troponin(5th) Baseline 8 ng/L (0-15)
[2023-05-11 19:39] LABS: Alanine Aminotransferase 53 U/L (0-41); Albumin Level 3.7 g/dL (3.5-5.2); Alkaline Phosphatase 72 U/L (40-130); Anion Gap 18.8 (5-19); Aspartate Amino Transferase 43 U/L (0-40); Blood Urea Nitrogen 12 mg/dL (8-23); Calcium 8.6 mg/dL (8.5-10.5); Carbon Dioxide 17 mmol/L (22-29); Chloride 105 mmol/L (98-107); Globulin 3.4 g/dL (1.3-4.6); Glomerular Filtration Rate 74.8 mL/min (90-130); Glucose 87 mg/dL (65-115); Lipase 62 U/L (13-60); Osmolality Calculated 283 mOsm/kg (285-295); Potassium 3.8 mmol/L (3.5-5.1); Sodium 137 mmol/L (136-145); Total Bilirubin 0.4 mg/dL (0.15-1.2); Total Protein 7.1 g/dL (6.6-8.7)
--- NOTE | 2023-05-11 21:00 | ECG_ITS ---
[facility] Test Date: 2023-05-11 Pat Name: Bubba Rothman Department: Room: Gender: Male Enameler: : 1955 Requested By: Tammie Heller Order Number: [id number] Sharyn MD: Vanessa Humphrey M.D. Measurements Intervals [place] Rate: 55 P: 42 PA: 177 QRS: 4 QRSD: 99 T: 66 QT: 439 QTc: 423 Interpretive Statements SINUS BRADYCARDIA NONSPECIFIC ST & T-WAVE ABNORMALITY Compared to ECG 05/11/2023 18:38:04 T-wave abnormality now present ST (T wave) deviation no longer present Electronically Signed On 05-12-2023 6:54:22 INSTRUCTOR PHYSICAL by Vanessa Humphrey M.D. [id number]
[2023-05-11 21:12] VITALS: BP 128/77; PULSE 60; RESP 19; O2SAT 95
[2023-05-11 21:32] LABS: Troponin 5 2HR 8.45 ng/L (0-15); Troponin 5 2HR Delta 0.45 ABS# (0-10)
== END 2023-05-11 22:14 | disposition home or self-care (01) ==
PROVIDERS: Emergency Medicine; Emergency Provider Emergency Medicine; PCP Family Medicine
DX: R07.9 Chest pain, unspecified (principal); Z79.02 Long term (current) use of antithrombotics/antiplatelets; Z79.82 Long term (current) use of aspirin; I25.10 Atherosclerotic heart disease of native coronary artery without angina pectoris
CPT/HCPCS: 36415; 71045; 80053; 83690; 84484; 85025; 93005; 99285

== ENCOUNTER 2023-05-12 08:14 | Outpatient (CLI) | payer MEDICARE, MEDICAID, SELFPAY ==
--- NOTE | 2023-05-12 | ECG_ITS ---
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 Interpretive Statements NAME OF STUDY: LEXISCAN SESTAMIBI STRESS TEST INDICATION: Chest Pain, CAD PROCEDURE: At the baseline, the EKG revealed normal sinus rhythm with some nonspecific ST-T changes.. The baseline heart was 64 bpm with a blood pressue of 159/97 mm of Hg Lexiscan was infused over a period of 20 seconds. A total of 0.4 milligrams of Lexiscan was infused. The stress phase was continued for a total of 5 minutes. Heart rate at the end of the stress phase was 70 bpm with a blood pressure 154/100 mm of Hg. The EKG at the peak infusion revealed no significant changes. Sestamibi was injected 20 seconds after the Lexiscan infusion. Heart rate at the end of the recovery phase was 79 bpm with a blood pressure of 163/102 mm of Hg. CONCLUSION: 1. No significant EKG changes with the LexiScan infusion 2. No LexiScan induced chest pain or cardiac arrhythmia 3. Normal blood pressure and heart rate response 4. Sestamibi/sestamibi perfusion scan pending; see separate report. Electronically Signed On 05-25-2023 9:31:39 QUALITY REVIEW SPECIALIST by Sheba Fernando M.D. [id number]
[2023-05-12 08:34] VITALS: BMI 39.6
--- NOTE | 2023-05-12 09:02 | NMCV_ITS ---
NM [place] perf SPECT r/s* [id number] StephanBubba goldsmith Age: 67 Gender: M : 1955 Exam Date: 05/12/2023 09:31 Ordering Phys: Tino Wang MD ([email or web address]) Technologist: SAGRARIO Gaytan Exam Location: [facility] Indications: PRESENCE OF CORONARY ANGIOPLASTY STRESS TEST Please see separate stress test report in [facility] for full findings IMAGE PROTOCOL Rest/Stress 1 Lexiscan Day Radiopharmaceutical Dose (mCi) Administration Site Administered by Rest: Tc-99m 10.6 IV SAGRARIO Candelaria Sestamibi Stress:Tc-99m 32.7 IV SAGRARIO Candelaria Sestamibi Rest: 05/12/2023 60 Discovery 630 Stress: 05/12/2023 30 Discovery 630 0.4mg Lexiscan. Images obtained in supine and prone position. SPECT RESULTS Technical Quality: Excellent Raw Data Analysis: Normal Image Corrections: No attenuation or motion correction applied Summed Stress Score: 1 Summed Rest Score: 0 Summed Difference Score: 1 PERFUSION FINDINGS A small area of slightly decreased tracer uptake in the mid inferolateral region with a complete reversibility in the supine imaging. No significant perfusion abnormalities were noted with the prone imaging. FUNCTIONAL RESULTS (calculated via Gated SPECT) Stress Image LV EF (%): 71 Stress EDV (mL):73 TID: 0.98 Stress ESV (mL):21 FUNCTIONAL FINDINGS: Segmental wall motion analysis revealing no gross wall motion abnormalities IMPRESSIONS 1. A small area of slightly decreased tracer uptake in the mid inferolateral region of the with reversibility, suggesting ischemia in the distribution of the left circumflex artery. However because of the inconsistency the reliability is questionable. Clinical correlation is recommended. 2. Normal LV ejection fraction of 71%. 3. LV wall motion analysis revealing no gross wall motion abnormalities. 4. Normal LV volume. No similar previous studies are available for comparison Dr Sheba Fernando MD [facility] (Electronically Signed) Final Date: 13 May 2023 12:06 S
[2023-05-12] MEDS: regadenoson 0.4 Mg/5 ml Syringe IVP (10:07)
[2023-05-12 10:15] VITALS: BP 163/102; PULSE 80
== END 2023-05-12 08:15 | disposition home or self-care (01) ==
PROVIDERS: PCP Family Medicine; Visit Provider Internal Medicine Cardiovascular Disease
DX: R07.9 Chest pain, unspecified (principal); I25.10 Atherosclerotic heart disease of native coronary artery without angina pectoris; Z95.5 Presence of coronary angioplasty implant and graft
CPT/HCPCS: 36415; 78452; 93017; 96374; A9500; J2785

== ENCOUNTER 2024-04-03 11:31 | Observation (INO) | payer MEDICARE, MEDICAID, SELFPAY ==
[2024-04-03] VITALS (10 sets, daily range): BP systolic 114–198; BP diastolic 69–112; PULSE 66–93; RESP 20–25; TEMP 36.4–36.9; O2SAT 91–94; BMI 39.3; BMI 39.7
--- NOTE | 2024-04-03 11:35 | XR_ITS ---
WS: [email or web address] Exam: XR chest 1V portable [id number] Date/Time of Exam: 04/03/2024 12:00 PM Reason For Exam: Chest pain Comparison 05/11/2023. Lungs are clear and fully expanded. Cardiomediastinal silhouette is unremarkable for technique. No pl eural effusions. Bony structures are intact. XR/XR chest 1V portable [id number] IMPRESSION: 1. No acute cardiopulmonary finding.
--- NOTE | 2024-04-03 11:36 | ECG_ITS ---
[facility] Test Date: 2024-04-03 Pat Name: Bubba Rothman Department: Room: Gender: Male Can Tender: : 1955 Requested By: Paula Matamoors Order Number: [id number] Sharyn MD: Sheba Fernando M.D. Measurements Intervals [place] Rate: 63 P: 42 NM: 161 QRS: 71 QRSD: 93 T: 96 QT: 381 QTc: 392 Interpretive Statements SINUS RHYTHM NONSPECIFIC ST & T-WAVE ABNORMALITY Compared to ECG 05/11/2023 21:00:50 Sinus bradycardia no longer present T-wave abnormality still present Electronically Signed On 04-03-2024 22:39:32 CDT by Sheba Fernando M.D. [id number]
[2024-04-03 11:47] LABS: Basophils # 0.1 10^3/uL (0.0-0.1); Basophils % 2.2 %; Eosinophils # 0.1 10^3/uL (0.0-0.8); Hematocrit 52.6 % (37-53); Lymphocytes # 2.6 10^3/uL (0.8-4.8); Lymphocytes % 58.8 %; Mean Corpuscular HGB Conc 34.4 g/dL (30-55); Mean Corpuscular Hemoglobin 33.6 pg (27-33); Mean Corpuscular Volume 97.6 fl (82-101); Mean Platelet Volume 10.4 fL (7.4-10.4); Monocytes # 0.4 10^3/uL (0.2-0.9); Monocytes % 9.4 %; Neutrophils # 1.22 10^3/uL (1.8-7.7); Neutrophils % 27.2 %; Nucleated Red Blood Cells % 0 %; Platelet Count 277 10^3/cmm (157-399); Red Blood Count 5.39 10^6/uL (3.85-5.65); White Blood Count 4.49 10^3/uL (3.29-11.43)
--- NOTE | 2024-04-03 11:53 | W.ED.CHESTPA ---
HPI - Chest Pain General: Chief Complaint: Chest Pain Stated Complaint: Chest pain, SOB Time Seen by Provider: 04/03/24 11:32 History of Present Illness: 68-year-old male with a history of hypertension, hyperlipidemia and coronary artery disease status post stents about a year ago who presents emergency room with chest pain and some shortness of breath. He stopped taking his medications recently. He said he did this because he was stubborn . EMS reports he was quite hypertensive on presentation. Nitroglycerin improved his blood pressure and his chest discomfort. No lower extremity swelling. No cough. No altered mental status. No focal motor deficits. No nausea or vomiting. No abdominal pain. Related Data Home Medications Medication Instructions Recorded Confirmed allopurinol 100 mg tablet 100 mg PO DAILY 08/15/19 04/03/24 docusate sodium 100 mg capsule 100 mg PO BID PRN Constipation 08/15/19 04/03/24 omeprazole 20 mg capsule,delayed 20 mg PO DAILY 08/15/19 04/03/24 release gabapentin 600 mg tablet 600 mg PO BEDTIME PRN Pain 09/09/21 04/03/24 nitroglycerin 0.4 mg sublingual 0.4 mg sublingual Q5M PRN Chest 09/09/21 04/03/24 tablet (Nitrostat) Pain potassium chloride 20 mEq 20 meq PO QAM 09/09/21 04/03/24 tablet,extended release(part/cryst) trazodone 50 mg tablet 150 mg PO BEDTIME PRN Sleep 12/02/21 04/03/24 atorvastatin 40 mg tablet 40 mg PO BEDTIME 06/28/22 04/03/24 losartan 100 mg tablet 100 mg PO DAILY 06/28/22 04/03/24 metoprolol succinate 50 mg 50 mg PO BID 06/28/22 04/03/24 tablet,extended release 24 hr tamsulosin 0.4 mg capsule (Flomax) 0.4 mg PO DAILY 06/28/22 04/03/24 Previous Rx's Medication Instructions Recorded aspirin 81 mg tablet,delayed 81 mg PO DAILY 90 days #100 tabs 09/10/21 release clopidogrel 75 mg tablet 75 mg PO DAILY 90 days #30 tabs 09/10/21 amlodipine 2.5 mg tablet 2.5 mg PO DAILY #30 tabs 06/28/22 Allergies Allergy/AdvReac Type Severity Reaction Status Date / Time No Known Allergies Allergy Verified 04/03/24 11:42 Review of Systems Narrative: Constitutional symptoms: Negative except as documented in HPI. Skin symptoms: Negative except as documented in HPI. Eye symptoms: Negative except as documented in HPI. ENMT symptoms: Negative except as documented in HPI. Respiratory symptoms: Negative except as documented in HPI. Cardiovascular symptoms: Negative except as documented in HPI. Gastrointestinal symptoms: Negative except as documented in HPI. Genitourinary symptoms: Negative except as documented in HPI. Musculoskeletal symptoms: Negative except as documented in HPI. Neurologic symptoms: Negative except as documented in HPI. Psychiatric symptoms: Negative except as documented in HPI. Endocrine symptoms: Negative except as documented in HPI. PFSH ED PFSH: Medical History Atherosclerosis of coronary artery Glucose intolerance Gout Right ureteral stone Surgical History Hx of colonoscopy with polypectomy S/P carpal tunnel release Family History Family/Other Cancer rectal Father Cancer colon Mother , in her 80's Alzheimer disease Social History Smoking and tobacco/nicotine status: never used tobacco/nicotine Alcohol intake: former Substance/Drug Use: never Marital status: Current occupational status: disabled Physical Exam Narrative: EXAM NARRATIVE: General: Alert, no acute distress. Skin: Warm, dry. Head: Normocephalic, atraumatic. Neck: Supple, trachea midline. Eye: Extraocular movements are intact. Ears, nose, mouth and throat: mucosa moist. Cardiovascular: Regular, Normal peripheral perfusion. Respiratory: Lungs are clear to auscultation, respirations are non-labored, breath sounds are equal, Symmetrical chest wall expansion. Gastrointestinal: Soft, Nontender, Non distended Musculoskeletal: Normal ROM, no deformity. Neurological: Alert and oriented, No focal neurological deficit observed. Psychiatric: Cooperative, appropriate mood & affect. Course Vital Signs: Vital signs: Vital Signs Temperature 97.5 F L 04/03/24 11:32 Pulse Rate 75 04/03/24 13:00 Respiratory Rate 25 H 04/03/24 13:00 Blood Pressure 136/95 04/03/24 13:00 Pulse Oximetry 93 04/03/24 13:00 Oxygen Delivery Me thod Room Air 04/03/24 12:12 MDM - Chest Pain Medical Decision Making Differential diagnosis for patient with chest pain includes but is not limited to and based on the above HPI, review of systems and physical exam: Pneumonia. unstable angina. angina. Acute coronary syndrome / ME. Pulmonary embolism. Costochondritis / musculoskeletal. Pleurisy. Pericarditis. Esophageal spasm. Pancreatis. Cholecystitis. Orders placed to evaluate differential diagnosis based on the above differential, HPI and physical exam EKG: Time 1130. Rate 63. Normal sinus rhythm, nonspecific T wave abnormalities, no ectopy, normal CT & QRS intervals, This was reviewed and interpreted by myself the ER physician at 11:35 AM Chest x-ray: No acute process. No infiltrate. No pneumothorax. This was reviewed and interpreted by myself the ER physician. Lab Review: Laboratory results were reviewed and interpreted by myself the emergency room physician. No leukocytosis. Patient's hemoglobin is a little high at 18 this is not uncommon for him. BUN and creatinine are normal at 7 and 0.7. First troponin is negative. HEART Pathway for Early Discharge in Acute Chest Pain from [facility] Information.Mobile-XL on 04/03/2024 All calculations should be rechecked by clinician prior to use RESULT SUMMARY: 6 points HEART Pathway Score High risk 12-65% 30-day MACE Admit to hospital or observation. Further testing indicated. INPUTS: History ?> 1 = Moderately suspicious EKG ?> 1 = Non-specific repolarization disturbance Age ?> 2 = >=5 Risk factors ?> 2 = >= risk factors or history of atherosclerotic disease Initial troponin ?> 0 = <=ormal limit I reviewed the patient's medical record. Reexamination: Patient remained stable. No increased work of breathing. No altered mental status. No focal motor deficits. Consultation: I spoke with Dr. Cortez who is on-call for the hospitalist service who agrees to admission to observation. Assessment and plan: Chest pain Accelerated hypertension Coronary artery disease Status post stenting of his coronary artery ?Blood pressure and chest pain improved with nitro. Patient has not been on his Plavix. High risk heart score. Admit to observation. -I discussed the patient with the hospitalist on-call who is admitting the patient. - Discussed findings and plan with patient. Answered any questions. - All laboratory values were reviewed and interpreted personally by myself, the ER physician - All imaging was reviewed and interpreted personally by myself, the ER physician. - Evaluation and treatment of this problem were appropriate in the emergency setting Lab Data 04/03/24 11:15 04/03/24 11:15 Radiology Impressions Chest X-Ray 04/03/24 11:35 IMPRESSION: 1. No acute cardiopulmonary finding. Laboratory Results WBC 4.49 10^3/uL (3.29-11.43) 04/03/24 11:15 RBC 5.39 10^6/uL (3.85-5.65) 04/03/24 11:15 Hgb 18.10 g/dL (11.27-16.99) H 04/03/24 11:15 Hct 52.6 % (37-53) 04/03/24 11:15 MCV 97.6 fl (82-101) 04/03/24 11:15 MCH 33.6 pg (27-33) H 04/03/24 11:15 MCHC 34.4 g/dL (30-55) 04/03/24 11:15 RDW 13.0 % (12.1-15.1) 04/03/24 11:15 Plt Count 277 10^3/cmm (157-399) 04/03/24 11:15 MPV 10.4 fL (7.4-10.4) 04/03/24 11:15 Neut % (Auto) 27.2 % 04/03/24 11:15 Lymph % (Auto) 58.8 % 04/03/24 11:15 [place] % (Auto) 9.4 % 04/03/24 11:15 Eos % (Auto) 2.0 % 04/03/24 11:15 Baso % (Auto) 2.2 % 04/03/24 11:15 Neut # (Auto) 1.22 10^3/uL (1.8-7.7) L 04/03/24 11:15 Lymph # (Auto) 2.6 10^3/uL (0.8-4.8) 04/03/24 11:15 [place] # (Auto) 0.4 10^3/uL (0.2-0.9) 04/03/24 11:15 Eos # (Auto) 0.1 10^3/uL (0.0-0.8) 04/03/24 11:15 Baso # (Auto) 0.1 10^3/uL (0.0-0.1) 04/03/24 11:15 Nucleated RBC % (auto) 0 % 04/03/24 11:15 Nucleated RBCs # 0.0 /100WBC 04/03/24 11:15 Sodium 141 mmol/L (136-145) 04/03/24 11:15 Potassium 4.2 mmol/L (3.5-5.1) 04/03/24 11:15 Chloride 101 mmol/L (98-107) 04/03/24 11:15 Carbon Dioxide 26 mmol/L (22-29) 04/03/24 11:15 Anion Gap 18.2 (5-19) 04/03/24 11:15 BUN 7 mg/dL (8-23) L 04/03/24 11:15 Creatinine 0.7 mg/dL (0.7-1.2) 04/03/24 11:15 GFR Calculation 112.5 mL/min (90-130) 04/03/24 11:15 Glucose 98 mg/dL (65-115) 04/03/24 11:15 Calculated Osmolality 290 mOsm/kg (285-295) 04/03/24 11:15 Calcium 9.5 mg/dL (8.5-10.5) 04/03/24 11:15 Total Bilirubin 0.5 mg/dL (0.15-1.2) 04/03/24 11:15 AST 49 U/L (0-40) H 04/03/24 11:15 ALT 45 U/L (0-41) H 04/03/24 11:15 Alkaline Phosphatase 75 U/L (40-130) 04/03/24 11:15 Troponin T Baseline 11 ng/L (0-15) 04/03/24 11:15 NT-Pro-B Natriuret Pep 66 pg/mL (0-125) 04/03/24 11:15 Total Protein 7.7 g/dL (6.6-8.7) 04/03/24 11:15 Albumin 4.3 g/dL (3.5-5.2) 04/03/24 11:15 Globulin 3.4 g/dL (1.3-4.6) 04/03/24 11:15 All radiology interpretation(s) finalized by discharge Clincial Decision Support The following clinical decision support tools were used to aid in care of the patient HEART Score -> History: Moderately Suspicious, EKG: Non-specific Changes, Age: 65 or more yrs, Risk Factors: >/=3 Risk Factors, Troponin: Baseline Trop <16 ng/L. Resulting HEART Score: 6. 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
[2024-04-03 12:02] LABS: Troponin(5th) Baseline 11 ng/L (0-15)
[2024-04-03 12:22] LABS: Alanine Aminotransferase 45 U/L (0-41); Albumin Level 4.3 g/dL (3.5-5.2); Alkaline Phosphatase 75 U/L (40-130); Anion Gap 18.2 (5-19); Aspartate Amino Transferase 49 U/L (0-40); Blood Urea Nitrogen 7 mg/dL (8-23); Calcium 9.5 mg/dL (8.5-10.5); Carbon Dioxide 26 mmol/L (22-29); Chloride 101 mmol/L (98-107); Globulin 3.4 g/dL (1.3-4.6); Glomerular Filtration Rate 112.5 mL/min (90-130); Glucose 98 mg/dL (65-115); NT Pro B Type Natriuretic Pept 66 pg/mL (0-125); Osmolality Calculated 290 mOsm/kg (285-295); Potassium 4.2 mmol/L (3.5-5.1); Sodium 141 mmol/L (136-145); Total Bilirubin 0.5 mg/dL (0.15-1.2); Total Protein 7.7 g/dL (6.6-8.7)
--- NOTE | 2024-04-03 12:43 | PC.PHAR ---
called assist Megan who handles his medication states he is very non compliant with taking his medications/not maliciously just doesn't take them as directed. They will be faxing me a med list of what he is supposed to be on and go from there
--- NOTE | 2024-04-03 13:07 | P.HP_ITS ---
Providers/Chief Complaint 2 Primary Care Provider: Gonzalo Hooker MD Chief Complaint: Chest pain, SOB History of Present Illness Bubba Rothman is a 68 year old male with past medical history of coronary artery disease status post PCI 2021, abnormal stress test 2022 with lost to follow-up, noncompliant to medications, alcohol abuse presented to the hospital today with chest pain. He states he was sitting on his couch when chest pain started. It radiates from his lateral side of chest towards the middle. He also gets short of breath when that happens. is at bedside providing supplemental information. Patient is currently intoxicated with alcohol. He says he drinks a pint to 2 pints of alcohol a day. Mainly it is vodka. reports that even after his stent was placed 2021 he was never compliant with aspirin and Plavix. He will only take medications when he felt like it. At this time denies nausea vomiting diarrhea constipation shortness of breath or chest pain at this time. He was given nitro via EMS which resolved the chest pain. Patient chews tobacco actively Medications/Allergies Home Medications Medication Instructions Recorded Confirmed Last Taken Type allopurinol 100 mg tablet 100 mg PO DAILY 08/15/19 04/03/24 06/27/22 History docusate sodium 100 mg capsule 100 mg PO BID PRN Constipation 08/15/19 04/03/24 Unknown History omeprazole 20 mg capsule,delayed 20 mg PO DAILY 08/15/19 04/03/24 06/27/22 History release gabapentin 600 mg tablet 600 mg PO BEDTIME PRN Pain 09/09/21 04/03/24 11/26/21 History nitroglycerin 0.4 mg sublingual 0.4 mg sublingual Q5M PRN Chest 09/09/21 04/03/24 09/08/21 History tablet (Nitrostat) Pain potassium chloride 20 mEq 20 meq PO QAM 09/09/21 04/03/24 06/27/22 History tablet,extended release(part/cryst) aspirin 81 mg tablet,delayed 81 mg PO DAILY 90 days #100 tabs 09/10/21 04/03/24 06/27/22 Rx release clopidogrel 75 mg tablet 75 mg PO DAILY 90 days #30 tabs 09/10/21 04/03/24 06/27/22 Rx trazodone 50 mg tablet 150 mg PO BEDTIME PRN Sleep 12/02/21 04/03/24 06/27/22 History amlodipine 2.5 mg tablet 2.5 mg PO DAILY #30 tabs 06/28/22 04/03/24 Unknown Rx atorvastatin 40 mg tablet 40 mg PO BEDTIME 06/28/22 04/03/24 06/27/22 History losartan 100 mg tablet 100 mg PO DAILY 06/28/22 04/03/24 06/27/22 History metoprolol succinate 50 mg 50 mg PO BID 06/28/22 04/03/24 06/27/22 History tablet,extended release 24 hr tamsulosin 0.4 mg capsule (Flomax) 0.4 mg PO DAILY 06/28/22 04/03/24 06/27/22 History Allergies Allergy/AdvReac Type Severity Reaction Status Date / Time No Known Allergies Allergy Verified 04/03/24 11:42 PFSH Acute 2 PFSH: Medical History Atherosclerosis of coronary artery Glucose intolerance Gout Right ureteral stone Surgical History Hx of colonoscopy with polypectomy S/P carpal tunnel release Family History Family/Other Cancer rectal Father Cancer colon Mother , in her 80's Alzheimer disease Social History Smoking and tobacco/nicotine status: never used tobacco/nicotine Alcohol intake: former Substance/Drug Use: never Marital status: Current occupational status: disabled Vitals/I&O/Wt Last Vital Signs Temp 97.5 F L 04/03/24 11:32 Pulse 66 04/03/24 12:30 Resp 24 H 04/03/24 12:30 BP 117/78 04/03/24 12:30 Pulse Ox 93 04/03/24 12:30 O2 Del Method Room Air 04/03/24 12:12 Weight last 48 hrs Weight 97.522 kg Physical Exam 2 Narrative: General: Alert oriented x3, patient seen laying in bed, intoxicated. Chewing tobacco HEENT: Normocephalic, atraumatic, EOMI, breathing room air. Cardio: Regular rate rhythm, normal S1-S2, Respiratory: Clear to auscultation bilaterally no wheezes no rhonchi at this time. GI: Abdomen soft, nontender, nondistended, bowel sounds + Extremities: No edema, visible skin intact. Data 04/04/24 04:33 04/04/24 04:33 A&P Assessment and plan (1) S/P right coronary artery (RCA) stent placement: (2) Chest pain: Qualifiers: Chest pain type: precordial pain Qualified Code(s): R07.2 - Precordial pain (3) Coronary artery disease: (4) Hypertension: Qualifiers: Hypertension type: primary hypertension Qualified Code(s): I10 - Essential (primary) hypertension (5) Dyslipidemia: Plan #Chest pain #Coronary disease status post PCI #History of subtotal RCA occlusion #Noncompliant to medications #Alcohol intoxication #Alcohol abuse #Tobacco chewing ? First troponin negative. Await second and third troponin, EKG without any acute ischemic changes at this time. If tropes elevated will consider placing on NSTEMI protocol and anticoagulate. ? Check echocardiogram to rule out wall motion abnormalities ? Consult cardiology. Patient does have an abnormal stress test from last year. I will hold off on ordering another 1. Discussed with Dr. Fernando. Patient may warrant a cath at this time. -Will check alcohol level, lipid profile, hemoglobin A1c ? N.p.o. at midnight ? Await recommendations from cardiology ? Had a discussion with patient regarding compliance to medications. ? Discussed about tobacco as well. ? Continue aspirin Plavix atorvastatin, metoprolol, omeprazole ? Placed on CIWA protocol ? Placed on telemetry ? Continue to monitor on cardiac stepdown unit. Full code DVT prophylaxis: Heparin subcu twice daily Attestations 2 Medical Necessity Statement*: Chest pain. Alcohol intoxication Diagnoses S/P right coronary artery (RCA) stent placement Z95.5 Precordial pain R07.2 Chest pain type: precordial pain Coronary artery disease I25.10 Primary hypertension I10 Hypertension type: primary hypertension Dyslipidemia E78.5
--- NOTE | 2024-04-03 13:08 | USCV_ITS ---
Bubba Rothman Age: 68 Gender: M : 1955 Exam Date: 04/03/2024 14:11 Ordering Phys: Charla Cortez MD Technologist: Exam Location[place] [facility] [place]ication: cp BP: 137 / 80 HR: 102 Rhythm: Sinus Technical Quality: Adequate MEASUREMENTS (Male / Female) Normal Values 2D ECHO LV Diastolic Diameter PLAX 4.3 cm 4.2 - 5.9 / 3.9 - 5.3 cm IVS Diastolic Thickness 1.5 cm 0.6 - 1.0 / 0.6 - 0.9 cm IVS Systolic Thickness 1.9 cm LVPW Diastolic Thickness 1.2 cm 0.6 - 1.0 / 0.6 - 0.9 cm LVPW Systolic Thickness 1.7 cm LVOT Diameter 2.0 cm LV Ejection Fraction 2D Teich 61.3 % LV Ejection Fraction MOD 4C 56.2 % LV Ejection Fraction MOD 2C 78.1 % LV Ejection Fraction 2C AL 77.9 % LA Diameter 3.5 cm RA Systolic Volume 4C AL 34.5 ml RA Systolic Volume 4C MOD 33.7 ml Aorta at Sinotubular Diameter 2.8 cm M-MODE LA Ao Ratio MM 1.2 AV Cusp Separation MM 2.1 cm DOPPLER AV Peak Velocity 173.0 cm/s LVOT Peak Velocity 93.0 cm/s AV Area Cont Eq vti 2.1 cm squared AV Area Cont Eq pk 1.7 cm squared MV Peak Velocity 66.0 cm/s MV Area PHT 2.7 cm squared Mitral E to A Ratio 0.7 TV Peak Velocity 193.5 cm/s TR Peak Velocity 231.0 cm/s TR Peak Gradient 21.3 mmHg TV Peak E Velocity 82.0 cm/s Right Atrial Pressure 3.0 mmHg Pulmonary Artery Systolic Pressu 24.3 mmHg PV Peak Velocity 95.0 cm/s FINDINGS Left Ventricle Normal left ventricular size and systolic function, EF 65%. Moderate concentric left ventricular hypertrophy.no regional wall motion abnormalities. Right Ventricle The right ventricle is normal in size and function. Right Atrium The right atrium is normal in size. Left Atrium The left atrium is normal in size. Mitral Valve No gross valvular abnormalities Aortic Valve Thickened aortic valve. Tricuspid Valve Trace tricuspid valve regurgitation. No gross abnormalities noted Pulmonic Valve Pulmonic valve not well visualized. Pericardium Normal pericardium without effusion. Aorta Normal ascending aorta dimension. IVC Inferior vena cava not visualized. CONCLUSIONS Normal left ventricular size and systolic function, EF 65%. Moderate concentric left ventricular hypertrophy. No regional wall motion abnormalities. Thickened aortic valve. Trace tricuspid valve regurgitation. No gross abnormalities noted. Estimated pulmonary artery peak systolic pressure 24 mmHg There is no pericardial effusion. Dr Sheba Fernando MD FAC (Electronically Signed) Final Date: 04 April 2024 09:44 S
[2024-04-03] MEDS: heparin 5,000 unit/mL INJ 1 mL 5000 UNIT SUBCUT (13:28)
--- NOTE | 2024-04-03 13:40 | ECG_ITS ---
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 Measurements Intervals [place] Rate: 68 P: 25 [place]: 155 QRS: 7 QRSD: 98 T: 75 QT: 393 QTc: 419 Interpretive Statements SINUS RHYTHM Diffuse non specific ST T changes POSSIBLE INFERIOR MYOCARDIAL INFARCTION , PROBABLY OLD [30 ms Q WAVE IN II/aVF] Compared to ECG 04/03/2024 11:30:27 Myocardial infarct finding now present T-wave abnormality no longer present Electronically Signed On 04-03-2024 22:45:04 CDT by Sheba Fernando M.D. [id number]
[2024-04-03 14:00] LABS: Chol HDL Ratio 4.27 mg/dL (1.0-5.00); Cholesterol 158 mg/dL (0-200); HDL Cholesterol 37 mg/dL (60-100); LDL Cholesterol Calculated 98 mg/dL (50-129); LDL HDL Ratio 2.65 RATIO (0.00-3.22); Triglycerides 117 mg/dL (0-150)
[2024-04-03 14:03] LABS: Troponin 5 2HR 9.31 ng/L (0-15)
[2024-04-03 14:04] LABS: Troponin 5 2HR Delta -1.69 ABS# (0-10)
--- NOTE | 2024-04-03 14:50 | PC.NURSE ---
patient arrived on floor at 1445 and is reporting no chest pain at this time. Tells nurse he wants to go home . Patient wants to keep current clothes on, even though aid pointed out to him he was wet. Scrub pants available at bedside for patient to put on.
--- NOTE | 2024-04-03 15:05 | CTR_ITS ---
PROCEDURE INFORMATION: Exam: CT Abdomen And Pelvis With Contrast Exam date and time: 04/03/2024 9:30 PM Age: 68 years old Clinical indication: Other: Elevated liver enzymes TECHNIQUE: Imaging protocol: Computed tomography of the abdomen and pelvis with contrast. Radiation optimization: All CT scans at this facility use at least one of these dose optimization techniques: automated exposure control; mA and/or kV adjustment per patient size (includes targeted exams where dose is matched to clinical indication); or iterative reconstruction. Contrast material: OMNI 350; Contrast volume: 100 ml; Contrast route: INTRAVENOUS (IV); COMPARISON: CT kidney stone [id number] 11/27/2021 12:38 PM RADIATION DOSE METRICS: Total DLP (mGy-cm): 1118.96 FINDINGS: Lungs: Mild bibasilar atelectasis. Liver: Subcentimeter hepatic hypodensities are too small to characterize. Gallbladder and biliary ducts: Status post cholecystectomy. Pancreas: Normal. No ductal dilation. Spleen: Calcified splenic granulomas. Adrenal glands: Normal. No mass. Kidneys and ureters: Normal. No hydronephrosis. Stomach and bowel: Unremarkable. No obstruction. No mucosal thickening. Appendix: No evidence of appendicitis. Intraperitoneal space: Unremarkable. No free air. No significant fluid collection. Vasculature: Moderate atherosclerotic aortoiliac calcifications. No aortic aneurysm. Lymph nodes: Unremarkable. No enlarged lymph nodes. Urinary bladder: Unremarkable as visualized. Reproductive: Unremarkable as visualized. Bones/joints: Unremarkable. No acute fracture. Soft tissues: Unremarkable. CT/CT abdomen pelvis w con* [id number] IMPRESSION: 1. A few scattered subcentimeter hepatic hypodensities are too small to characterize. These do not have the appearance of simple cysts. Recommend follow-up nonemergent right upper quadrant ultrasound or MRI abdomen without and with contrast for further characterization. 2. Status post cholecystectomy.
--- NOTE | 2024-04-03 16:46 | PC.NURSE ---
patient's blood pressure was elevated and nurse mentioned giving him his metoprolol and little early and patient replied a little whiskey would fix it and asked if we had any.
[2024-04-03] MEDS: metoprolol tartrate 50 mg Tablet PO (16:54)
--- NOTE | 2024-04-03 16:55 | PC.NURSE ---
metformin given 5 minutes early due to elevated blood pressure
[2024-04-03] MEDS: acetaminophen 325 mg Tablet 650 MG PO (17:13)
--- NOTE | 2024-04-03 17:36 | ECG_ITS ---
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 Measurements Intervals [place] Rate: 65 P: 17 [place]: 165 QRS: 37 QRSD: 102 T: 36 QT: 414 QTc: 431 Interpretive Statements SINUS RHYTHM NONSPECIFIC ST & T-WAVE ABNORMALITY Compared to ECG 04/03/2024 13:40:01 T-wave abnormality now present Myocardial infarct finding no longer present Electronically Signed On 04-03-2024 22:45:08 CDT by Sheba Fernando M.D. [id number]
[2024-04-03 18:09] LABS: Alcohol Level 225 mg/dL (0-10); Lipase 50 U/L (13-60)
[2024-04-03 18:21] LABS: Folate Level 3.3 ng/mL (4.5-32.2)
--- NOTE | 2024-04-03 18:21 | P.CONIM_ITS ---
Providers/Reason For Consult 2 Consulting Physician/Specialty*: ASHLEY Fernando MD/cardiology Reason for Consult*: Patient with the chest pain, history atherosclerotic heart diseas and previous PCI Requesting Physician: Dr. Cortez Attending Physician: Charla Cortez MD Primary Care Provider: Gonzalo Hooker MD History of Present Illness History of Present Illness Bubba Rothman is a 68 year old male presenting with chest pain. He had another episode of chest pain today lasting for more than 10 minutes. His called the EMS. He was found to have accelerated hypertension. With the sublingual nitroglycerin, his chest pain and the blood pressure started coming down. Currently at the time of my examination, patient is pain-free. He has a significant cardiac history, including atherosclerotic heart disease and a previous myocardial infarction. He underwent percutaneous coronary intervention (PCI) of the right coronary artery in 2021, when he presented with acute inferior wall CT. Over the past two months, he has experienced episodes of chest pain occurring two to three times per week. These episodes last five to ten minutes and resolve spontaneously. The pain is moderate in intensity and often radiates to the right side, accompanied by tingling and numbness of the right hand. He also reports associated shortness of breath. There is an absence of nausea, vomiting, sweating, dizziness, or syncope. The patient has been noncompliant with both medication regimens and medical follow-ups. A myocardial perfusion imaging study from May last year revealed a small area of reversible defect in the left circumflex artery distribution. Currently, the patient continues to chew tobacco, consuming one can per day and drinks one or two pints of vodka regularly. His family history reveals no heart disease among three siblings. He has been very noncompliant with medications. He has been taking the Plavix and the aspirin whenever he feels like! Review of Systems 2 Narrative: CONSTITUTIONAL: No fever or chills. EYES: No blurring of vision or other visual disturbances lately. ENT: No hoarseness of voice, auditory disturbances or sore throat. CARDIOVASCULAR: As mentioned above. RESPIRATORY: No significant cough. GASTROINTESTINAL: No hematemesis or melena. GENITOURINARY: No dysuria or hematuria. INTEGUMENTARY: No skin rashes or history of skin cancer. NEURO: No transient ischemic attacks or amaurosis. PSYCHIATRIC: No history of psychosis or major depression. HEMATOLOGIC: No bleeding disorders or significant anemia. ENDOCRINE: No history of polyuria or polydipsia. MUSCULOSKELETAL: No recent joint pain or swelling. ALLERGY/IMMUNOLOGY: As mentioned above. Medications/Allergies Home Medications Medication Instructions Recorded Confirmed Last Taken Type allopurinol 100 mg tablet 100 mg PO DAILY 08/15/19 04/03/24 06/27/22 History docusate sodium 100 mg capsule 100 mg PO BID PRN Constipation 08/15/19 04/03/24 Unknown History omeprazole 20 mg capsule,delayed 20 mg PO DAILY 08/15/19 04/03/24 06/27/22 History release gabapentin 600 mg tablet 600 mg PO BEDTIME PRN Pain 09/09/21 04/03/24 11/26/21 History nitroglycerin 0.4 mg sublingual 0.4 mg sublingual Q5M PRN Chest 09/09/21 04/03/24 09/08/21 History tablet (Nitrostat) Pain potassium chloride 20 mEq 20 meq PO QAM 09/09/21 04/03/24 06/27/22 History tablet,extended release(part/cryst) aspirin 81 mg tablet,delayed 81 mg PO DAILY 90 days #100 tabs 09/10/21 04/03/24 06/27/22 Rx release clopidogrel 75 mg tablet 75 mg PO DAILY 90 days #30 tabs 09/10/21 04/03/24 06/27/22 Rx trazodone 50 mg tablet 150 mg PO BEDTIME PRN Sleep 12/02/21 04/03/24 06/27/22 History amlodipine 2.5 mg tablet 2.5 mg PO DAILY #30 tabs 06/28/22 04/03/24 Unknown Rx atorvastatin 40 mg tablet 40 mg PO BEDTIME 06/28/22 04/03/24 06/27/22 History losartan 100 mg tablet 100 mg PO DAILY 06/28/22 04/03/24 06/27/22 History metoprolol succinate 50 mg 50 mg PO BID 06/28/22 04/03/24 06/27/22 History tablet,extended release 24 hr tamsulosin 0.4 mg capsule (Flomax) 0.4 mg PO DAILY 06/28/22 04/03/24 06/27/22 History Allergies Allergy/AdvReac Type Severity Reaction Status Date / Time No Known Allergies Allergy Verified 04/03/24 11:42 Current Medications Generic Name Dose Route Start Last Admin Trade Name Morganq PRN Reason Stop Dose Admin Acetaminophen 650 mg 04/03/24 13:08 04/03/24 17:13 Acetaminophen 325 Mg Tablet PO 650 mg Q6H PRN Administration Mild/Mod Pain Or Temp >/= 101 Heparin Sodium (Porcine) 5,000 unit 04/03/24 13:15 04/03/24 13:28 Heparin 5,000 Unit/Ml Inj 1 Ml SUBCUT 5,000 unit Q12H ELMA Administration Metoprolol Tartrate 50 mg 04/03/24 18:00 04/03/24 16:54 Metoprolol Tartrate 50 Mg Tablet PO 50 mg BID ELMA Administration PFSH Acute 2 PFSH: Medical History Atherosclerosis of coronary artery Glucose intolerance Gout Right ureteral stone Surgical History Hx of colonoscopy with polypectomy S/P carpal tunnel release Family History Family/Other Cancer rectal Father Cancer colon Mother , in her 80's Alzheimer disease Social History Smoking and tobacco/nicotine status: never used tobacco/nicotine Alcohol intake: former Substance/Drug Use: never Marital status: Current occupational status: disabled Vitals/I&O/Wt Last Vital Signs Temp 97.6 F 04/03/24 16:00 Pulse 82 04/03/24 16:00 Resp 21 H 04/03/24 16:00 BP 131/101 04/03/24 16:00 Pulse Ox 94 04/03/24 16:00 O2 Del Method Room Air 04/03/24 16:00 Weight last 48 hrs Weight 217 lb 7 oz Weight 217 lb 7 oz Weight 215 lb Physical Exam 2 Narrative: GENERAL: The patient is alert and oriented times three. Not in any acute distress. HEENT: No significant pallor, icterus or lymphadenopathy.Oral cavity: There are no mucous membrane lesions. NECK: Trachea appears to be central. No masses noted. No JVD or thyromegaly appreciated. RESPIRATORY: Chest is symmetrical. No intercostals muscle retraction or any accessory muscle activation. There is no chest wall tenderness. Breath sounds are heard bilaterally. No rales or rhonchi heard. No evidence of any consolidation. BREASTS: Deferred. HEART: The heart sounds are normal. No S3 or S4. No significant murmurs. No pericardial rub ABDOMEN: No vessel pulsations or distention. No tenderness. No organomegaly appreciated. Bowel sounds are normally heard. : Deferred. RECTAL: Deferred. LYMPHATIC: No lymphadenopathy noted in the neck. EXTREMITIES: No edema or cyanosis. No clubbing. MUSCULOSKELETAL: No acute joint deformities or swelling SKIN: There are no significant rashes or ecchymosis NEUROPSYCHIATRIC: The patient is alert and oriented x3. Appears to be in a good mood. No tremors or rigidity noted. Data 04/03/24 11:15 04/03/24 11:15 Other Labs: Laboratory Last Values WBC 4.49 10^3/uL (3.29-11.43) 04/03/24 11:15 RBC 5.39 10^6/uL (3.85-5.65) 04/03/24 11:15 Hgb 18.10 g/dL (11.27-16.99) H 04/03/24 11:15 Hct 52.6 % (37-53) 04/03/24 11:15 MCV 97.6 fl (82-101) 04/03/24 11:15 MCH 33.6 pg (27-33) H 04/03/24 11:15 MCHC 34.4 g/dL (30-55) 04/03/24 11:15 RDW 13.0 % (12.1-15.1) 04/03/24 11:15 Plt Count 277 10^3/cmm (157-399) 04/03/24 11:15 MPV 10.4 fL (7.4-10.4) 04/03/24 11:15 Neut % (Auto) 27.2 % 04/03/24 11:15 Lymph % (Auto) 58.8 % 04/03/24 11:15 [place] % (Auto) 9.4 % 04/03/24 11:15 Eos % (Auto) 2.0 % 04/03/24 11:15 Baso % (Auto) 2.2 % 04/03/24 11:15 Neut # (Auto) 1.22 10^3/uL (1.8-7.7) L 04/03/24 11:15 Lymph # (Auto) 2.6 10^3/uL (0.8-4.8) 04/03/24 11:15 [place] # (Auto) 0.4 10^3/uL (0.2-0.9) 04/03/24 11:15 Eos # (Auto) 0.1 10^3/uL (0.0-0.8) 04/03/24 11:15 Baso # (Auto) 0.1 10^3/uL (0.0-0.1) 04/03/24 11:15 Nucleated RBC % (auto) 0 % 04/03/24 11:15 Nucleated RBCs # 0.0 /100WBC 04/03/24 11:15 Sodium 141 mmol/L (136-145) 04/03/24 11:15 Potassium 4.2 mmol/L (3.5-5.1) 04/03/24 11:15 Chloride 101 mmol/L (98-107) 04/03/24 11:15 Carbon Dioxide 26 mmol/L (22-29) 04/03/24 11:15 Anion Gap 18.2 (5-19) 04/03/24 11:15 BUN 7 mg/dL (8-23) L 04/03/24 11:15 Creatinine 0.7 mg/dL (0.7-1.2) 04/03/24 11:15 GFR Calculation 112.5 mL/min (90-130) 04/03/24 11:15 Glucose 98 mg/dL (65-115) 04/03/24 11:15 Calculated Osmolality 290 mOsm/kg (285-295) 04/03/24 11:15 Calcium 9.5 mg/dL (8.5-10.5) 04/03/24 11:15 Total Bilirubin 0.5 mg/dL (0.15-1.2) 04/03/24 11:15 AST 49 U/L (0-40) H 04/03/24 11:15 ALT 45 U/L (0-41) H 04/03/24 11:15 Alkaline Phosphatase 75 U/L (40-130) 04/03/24 11:15 Troponin T Baseline 11 ng/L (0-15) 04/03/24 11:15 Troponin T 120 Minute 9.31 ng/L (0-15) 04/03/24 13:17 Delta Troponin T -1.69 ABS# (0-10) L 04/03/24 13:17 NT-Pro-B Natriuret Pep 66 pg/mL (0-125) 04/03/24 11:15 Total Protein 7.7 g/dL (6.6-8.7) 04/03/24 11:15 Albumin 4.3 g/dL (3.5-5.2) 04/03/24 11:15 Globulin 3.4 g/dL (1.3-4.6) 04/03/24 11:15 Triglycerides 117 mg/dL (0-150) 04/03/24 13:17 Cholesterol 158 mg/dL (0-200) 04/03/24 13:17 LDL Cholesterol, Calc 98 mg/dL (50-129) 04/03/24 13:17 HDL Cholesterol 37 mg/dL (60-100) L 04/03/24 13:17 LDL/HDL Ratio 2.65 RATIO (0.00-3.22) 04/03/24 13:17 Cholesterol/HDL Ratio 4.27 mg/dL (1.0-5.00) 04/03/24 13:17 Lipase 50 U/L (13-60) 04/03/24 11:15 Folate 3.3 ng/mL (4.5-32.2) L 04/03/24 11:15 Ethyl Alcohol 225 mg/dL (0-10) H 04/03/24 11:15 EKG 1: Group Practice Pediatrician Interpretation: Normal sinus rhythm with nonspecific ST-T changes in the inferior and anterolateral leads. Other data: Myocardial perfusion imaging May 2023 1. A small area of slightly decreased tracer uptake in the mid inferolateral region of the with reversibility, suggesting ischemia in the distribution of the left circumflex artery. However because of the inconsistency the reliability is questionable. Clinical correlation is recommended. 2. Normal LV ejection fraction of 71%. 3. LV wall motion analysis revealing no gross wall motion abnormalities. 4. Normal LV volume. No similar previous studies are available for comparison Cardiac or exertional August 11, 2021 * Patient initially underwent the procedure via the right radial artery. The artery was partially blocked in the area of the brachial artery. A wire was placed through and the guide placed up to the axillary artery. The innominate artery was extremely tortuous and the vessels could not be cannulated using the catheter from the right radial artery. This was abandoned and the procedure was completed from the right femoral artery. * Coronary angiography reveals right coronary artery dominance. There is a 99% stenosis in the midportion of the right coronary artery with JENNIFER I flow beyond this. The left main, circumflex and LAD are without any significant lesions. There is a 50% mid LAD lesion. A&P Assessment and plan (1) Chest pain: Patient's chest pain may suggest unstable angina EKG changes are nonspecific. No evidence of myocardial Bubba so far. In view of the patient's history and the presenting symptoms, noted to further evaluate his coronary status, he requires a cardiac catheterization. Qualifiers: Chest pain type: precordial pain Qualified Code(s): R07.2 - Precordial pain (2) Atherosclerotic heart disease of [place] coronary artery with other forms of angina pectoris: Patient had acute inferior wall myocardial infarction in August 2021. Categorization revealed a subtotal occlusion of the mid RCA. Around 50% lesion was noted in the mid LAD. Possibility of restenosis of the RCA lesion versus progression of disease in the LAD are considerations. (3) Hypertension: The blood pressure seems to be getting under control. Will try to optimize the antihypertensive medications. Qualifiers: Hypertension type: primary hypertension Qualified Code(s): I10 - Essential (primary) hypertension (4) Dyslipidemia: May continue on the current medications. Plan An echocardiogram to be helpful to evaluate LV function and rule out any other pathology. Patient requires a cardiac catheterization to further evaluate his coronary status. The risk and benefits were discussed in detail with the patient and his . The risk of bleeding, hematoma, vascular injury, myocardial infarction, myocardial perforation, malignant cardiac arrhythmias ,CVA, renal failure and other concomitant complications were explained in detail. Patient understood this well and consented to proceed. We may go ahead and do schedule the procedure for tomorrow. Based on the angiogram findings, further recommendations will be made Thank you for the opportunity to evaluate this patient and make these recommendations Consult Attestations 2 Medical Necessity Statement: Patient requires continued hospital stay for close monitoring and further management Coding Level of Care Code 75754 Diagnoses Precordial pain R07.2 Chest pain type: precordial pain Atherosclerotic heart disease of [place] coronary artery with other forms of angina pectoris I25.118 Primary hypertension I10 Hypertension type: primary hypertension Dyslipidemia E78.5
[2024-04-03 18:26] LABS: Vitamin B12 544 pg/mL (232-1245)
[2024-04-03 19:06] LABS: Troponin 5 6HR 8.62 ng/L (0-15)
[2024-04-03 19:23] LABS: Troponin 5 6HR Delta -2.38 ng/L (0-12)
[2024-04-03] MEDS: atorvastatin 40 mg Tablet PO (21:15)
[2024-04-03] MEDS: hyDRALAzine 20 mg/mL INJ 1 mL 10 MG IVP (21:16)
[2024-04-03] MEDS: iohexol 350 mg/mL 500 mL Btl (per mL) IV (21:34)
[2024-04-04] VITALS (9 sets, daily range): BP systolic 134–187; BP diastolic 75–132; PULSE 74–93; RESP 10–21; TEMP 36.5–37; O2SAT 90–93
[2024-04-04] MEDS: heparin 5,000 unit/mL INJ 1 mL 5000 UNIT SUBCUT (00:59)
[2024-04-04] MEDS: hyDRALAzine 20 mg/mL INJ 1 mL 10 MG IVP (03:28)
[2024-04-04 05:38] LABS: Basophils # 0.1 10^3/uL (0.0-0.1); Basophils % 1.6 %; Eosinophils # 0.1 10^3/uL (0.0-0.8); Eosinophils % 1.3 %; Hematocrit 50.9 % (37-53); Lymphocytes # 2.1 10^3/uL (0.8-4.8); Lymphocytes % 38.3 %; Mean Corpuscular HGB Conc 34.8 g/dL (30-55); Mean Corpuscular Hemoglobin 34.1 pg (27-33); Mean Corpuscular Volume 98.1 fl (82-101); Mean Platelet Volume 10.8 fL (7.4-10.4); Monocytes # 0.5 10^3/uL (0.2-0.9); Monocytes % 8.8 %; Neutrophils # 2.72 10^3/uL (1.8-7.7); Neutrophils % 49.8 %; Nucleated Red Blood Cells % 0 %; Platelet Count 284 10^3/cmm (157-399); Red Blood Count 5.19 10^6/uL (3.85-5.65); Red Cell Distribution Width 13.2 % (12.1-15.1); White Blood Count 5.46 10^3/uL (3.29-11.43)
[2024-04-04 06:08] LABS: Anion Gap 16.5 (5-19); Blood Urea Nitrogen 12 mg/dL (8-23); Calcium 9.2 mg/dL (8.5-10.5); Carbon Dioxide 23 mmol/L (22-29); Chloride 104 mmol/L (98-107); Creatinine Clr Calc Pharmacy 91.5177; Glomerular Filtration Rate 134.4 mL/min (90-130); Glucose 108 mg/dL (65-115); Osmolality Calculated 290 mOsm/kg (285-295); Potassium 3.5 mmol/L (3.5-5.1); Sodium 140 mmol/L (136-145)
[2024-04-04] MEDS: multivitamin therapeutic Tablet 1 TAB PO (07:49)
[2024-04-04] MEDS: tamsulosin 0.4 mg Capsule PO (07:49)
[2024-04-04] MEDS: losartan 50 mg Tablet 100 MG PO (07:49)
[2024-04-04] MEDS: folic acid 1 mg Tablet PO (07:49)
[2024-04-04] MEDS: metoprolol tartrate 50 mg Tablet PO ×2 (07:50→18:43)
[2024-04-04] MEDS: clopidogrel 75 mg Tablet PO (07:50)
[2024-04-04] MEDS: aspirin 81 mg EC Tablet PO (07:50)
[2024-04-04] MEDS: acetaminophen 325 mg Tablet 650 MG PO (07:50)
[2024-04-04] MEDS: pantoprazole DR 40 mg Tablet PO (07:50)
[2024-04-04] MEDS: thiamine 100 mg Tablet PO (07:50)
[2024-04-04] MEDS: amlodipine 5 mg Tablet PO (08:55)
[2024-04-04] MEDS: LORazepam 2 mg Tablet PO (08:55)
--- NOTE | 2024-04-04 10:54 | P.PN_ITS ---
Subjective 2 Subjective: Patient is doing well this morning. No acute events overnight. No chest pain or shortness of breath at this time. Creatinine stable. Patient is going to the [facility] today. Echo done yesterday. Blood pressure running a little high at 154/101. . Patient was started on amlodipine 5 mg p.o. in addition to the other medications. Blood pressure seems to be coming down with this . Medications: Reviewed: Yes Medication Review Details: Current Medications Acetaminophen (Acetaminophen 325 Mg Tablet) 650 mg PO Q6H PRN PRN Reason: Mild/Mod Pain Or Temp >/= 101 Last Admin: 04/04/24 07:50 Dose: 650 mg Al Hydrox/Mg Hydrox/Simethicone (Stxv-Gsa-Wbbbplcyn-Nahomy 30 Ml Udc) 30 ml PO Q15M PRN PRN Reason: INDIGESTION Amlodipine Besylate (Amlodipine 5 Mg Tablet) 5 mg PO DAILY [facility] Last Admin: 04/04/24 08:55 Dose: 5 mg Aspirin (Aspirin 81 Mg Ec Tablet) 81 mg PO DAILY [facility] Last Admin: 04/04/24 07:50 Dose: 81 mg Atorvastatin Calcium (Atorvastatin 40 Mg Tablet) 40 mg PO BEDTIME [facility] Last Admin: 04/04/24 20:38 Dose: 40 mg Atropine Sulfate (Atropine 1 Mg/Ml Sdv 1 Ml) 0.5 mg IVP PRN PRN PRN Reason: Symptomatic bradycardia Clopidogrel Bisulfate (Clopidogrel 75 Mg Tablet) 75 mg PO DAILY [facility] Last Admin: 04/04/24 07:50 Dose: 75 mg Folic Acid (Folic Acid 1 Mg Tablet) 1 mg PO DAILY [facility] Last Admin: 04/04/24 07:49 Dose: 1 mg Heparin Sodium (Porcine) (Heparin 5,000 Unit/Ml Inj 1 Ml) 5,000 unit SUBCUT Q12H [facility] Last Admin: 04/04/24 14:44 Dose: Not Given Hydralazine HCl (Hydralazine 20 Mg/Ml Inj 1 Ml) 10 mg IVP Q6H PRN PRN Reason: SYSTOLIC BLOOD PRESSURE Last Admin: 04/04/24 03:28 Dose: 10 mg Lorazepam (Lorazepam 2 Mg Tablet) 2 mg PO Q4H PRN; Protocol PRN Reason: WITHDRAWAL Last Admin: 04/04/24 08:55 Dose: 2 mg Lorazepam (Lorazepam 2 Mg/Ml Inj 1 Ml) 2 mg IM Q4H PRN; Protocol PRN Reason: ALCOHOL WITHDRAWAL Lorazepam (Lorazepam 2 Mg/Ml Inj 1 Ml) 2 mg IVP PRN PRN; Protocol PRN Reason: WITHDRAWAL Losartan Potassium (Losartan 50 Mg Tablet) 100 mg PO DAILY [facility] Last Admin: 04/04/24 07:49 Dose: 100 mg Magnesium Hydroxide (Magnesium Hydroxide 30 Ml Udc) 30 ml PO DAILY PRN PRN Reason: CONSTIPATION Metoprolol Tartrate (Metoprolol Tartrate 50 Mg Tablet) 50 mg PO BID [facility] Last Admin: 04/04/24 18:43 Dose: 50 mg Multivitamins Therapeutic (Multivitamin Therapeutic Tablet) 1 tab PO DAILY [facility] Last Admin: 04/04/24 07:49 Dose: 1 tab Naloxone HCl (Naloxone 0.4 Mg/Ml Sdv) 0.1 mg IVP Q2M PRN PRN Reason: RESPIRATORY RATE < 8/MIN Nitroglycerin (Nitroglycerin 0.4 Mg Sublingual Tablet) 0.4 mg SUBLINGUAL Q5M PRN PRN Reason: CHEST PAIN Ondansetron HCl (Ondansetron 2 Mg/Ml Sdv 2 Ml) 4 mg IVP Q8H PRN PRN Reason: vomiting, or N/V if npo Pantoprazole Sodium (Pantoprazole Dr 40 Mg Tablet) 40 mg PO DAILY [facility] Last Admin: 04/04/24 07:50 Dose: 40 mg Tamsulosin HCl (Tamsulosin 0.4 Mg Capsule) 0.4 mg PO DAILY [facility] Last Admin: 04/04/24 07:49 Dose: 0.4 mg Thiamine Mononitrate (Thiamine 100 Mg Tablet) 100 mg PO DAILY [facility] Last Admin: 04/04/24 07:50 Dose: 100 mg Trazodone HCl (Trazodone 50 Mg Tablet) 150 mg PO BEDTIME PRN PRN Reason: Sleep Last Admin: 04/04/24 20:38 Dose: 150 mg Vitals/I&O/Wt Last Vital Signs Temp 97.8 F 04/04/24 07:39 Pulse 80 04/04/24 07:39 Resp 10 L 04/04/24 07:39 BP 154/101 04/04/24 07:49 Pulse Ox 93 04/04/24 07:39 O2 Del Method Room Air 04/04/24 07:39 04/03/24 04/04/24 04/04/24 22:59 06:59 14:59 Intake Total 480 / 480 Output Total 480 / 480 Balance 480 / 480 -480 / -480 Weight last 48 hrs Weight 217 lb 7 oz Weight 217 lb 7 oz Weight 217 lb 7 oz Weight 215 lb Physical Exam 2 Narrative: General: No apparent distress, healthy appearing, well nourished HENMT: normoceophalic Eye: PERRL Muskuloskeletal: Full ROM Lymphatic: no lymphedema noted Respiratory: Normal respiratory effort, clear to auscultation bilaterally throughout all lung monteiro, no use of accessory muscles Cardio: No JVD, regular rate, regular rhythm, S1 S2 normal, no murmurs, peripheral pulses 2+ radial palpated bilaterally Extremities: Full ROM, normal, normal capillary refill, no cyanosis or edema Neuro: Alert and oriented x4, no focal motor deficits Psych: Affect normal, denies suicidal ideation, mental status grossly normal Skin: No rashes or lesions noted, no wounds Data 04/04/24 04:33 04/04/24 04:33 Other Labs: Laboratory Last Values WBC 5.46 10^3/uL (3.29-11.43) 04/04/24 04:33 RBC 5.19 10^6/uL (3.85-5.65) 04/04/24 04:33 Hgb 17.70 g/dL (11.27-16.99) H 04/04/24 04:33 Hct 50.9 % (37-53) 04/04/24 04:33 MCV 98.1 fl (82-101) 04/04/24 04:33 MCH 34.1 pg (27-33) H 04/04/24 04:33 MCHC 34.8 g/dL (30-55) 04/04/24 04:33 RDW 13.2 % (12.1-15.1) 04/04/24 04:33 Plt Count 284 10^3/cmm (157-399) 04/04/24 04:33 MPV 10.8 fL (7.4-10.4) H 04/04/24 04:33 Neut % (Auto) 49.8 % 04/04/24 04:33 Lymph % (Auto) 38.3 % 04/04/24 04:33 [place] % (Auto) 8.8 % 04/04/24 04:33 Eos % (Auto) 1.3 % 04/04/24 04:33 Baso % (Auto) 1.6 % 04/04/24 04:33 Neut # (Auto) 2.72 10^3/uL (1.8-7.7) 04/04/24 04:33 Lymph # (Auto) 2.1 10^3/uL (0.8-4.8) 04/04/24 04:33 [place] # (Auto) 0.5 10^3/uL (0.2-0.9) 04/04/24 04:33 Eos # (Auto) 0.1 10^3/uL (0.0-0.8) 04/04/24 04:33 Baso # (Auto) 0.1 10^3/uL (0.0-0.1) 04/04/24 04:33 Nucleated RBC % (auto) 0 % 04/04/24 04:33 Nucleated RBCs # 0.0 /100WBC 04/04/24 04:33 Sodium 140 mmol/L (136-145) 04/04/24 04:33 Potassium 3.5 mmol/L (3.5-5.1) 04/04/24 04:33 Chloride 104 mmol/L (98-107) 04/04/24 04:33 Carbon Dioxide 23 mmol/L (22-29) 04/04/24 04:33 Anion Gap 16.5 (5-19) 04/04/24 04:33 BUN 12 mg/dL (8-23) 04/04/24 04:33 Creatinine 0.6 mg/dL (0.7-1.2) L 04/04/24 04:33 GFR Calculation 134.4 mL/min (90-130) H 04/04/24 04:33 Glucose 108 mg/dL (65-115) 04/04/24 04:33 Calculated Osmolality 290 mOsm/kg (285-295) 04/04/24 04:33 Calcium 9.2 mg/dL (8.5-10.5) 04/04/24 04:33 Total Bilirubin 0.5 mg/dL (0.15-1.2) 04/03/24 11:15 AST 49 U/L (0-40) H 04/03/24 11:15 ALT 45 U/L (0-41) H 04/03/24 11:15 Alkaline Phosphatase 75 U/L (40-130) 04/03/24 11:15 Troponin T Baseline 11 ng/L (0-15) 04/03/24 11:15 Troponin T 120 Minute 9.31 ng/L (0-15) 04/03/24 13:17 Delta Troponin T -1.69 ABS# (0-10) L 04/03/24 13:17 Troponin T Hi Sens 6Hr 8.62 ng/L (0-15) 04/03/24 17:45 Troponin T Hi Sens 6Hr Delta -2.38 ng/L (0-12) L 04/03/24 17:45 NT-Pro-B Natriuret Pep 66 pg/mL (0-125) 04/03/24 11:15 Total Protein 7.7 g/dL (6.6-8.7) 04/03/24 11:15 Albumin 4.3 g/dL (3.5-5.2) 04/03/24 11:15 Globulin 3.4 g/dL (1.3-4.6) 04/03/24 11:15 Triglycerides 117 mg/dL (0-150) 04/03/24 13:17 Cholesterol 158 mg/dL (0-200) 04/03/24 13:17 LDL Cholesterol, Calc 98 mg/dL (50-129) 04/03/24 13:17 HDL Cholesterol 37 mg/dL (60-100) L 04/03/24 13:17 LDL/HDL Ratio 2.65 RATIO (0.00-3.22) 04/03/24 13:17 Cholesterol/HDL Ratio 4.27 mg/dL (1.0-5.00) 04/03/24 13:17 Lipase 50 U/L (13-60) 04/03/24 11:15 Vitamin B12 544 pg/mL (232-1245) 04/03/24 11:15 Folate 3.3 ng/mL (4.5-32.2) L 04/03/24 11:15 Ethyl Alcohol 225 mg/dL (0-10) H 04/03/24 11:15 Hepatitis A IgM Ab Non-reactive (Nonreactive) 04/04/24 04:33 Hep Bs Antigen Non-reactive (Nonreactive) 04/04/24 04:33 Hep Bs Antibody < 3.5 (11.5-1000) L 04/04/24 04:33 Hep B Core Total Ab Non-reactive (Nonreactive) 04/04/24 04:33 Hepatitis C Antibody Non-reactive (Nonreactive) 04/04/24 04:33 Other data: Echo Complete CONCLUSIONS Normal left ventricular size and systolic function, EF 65%. Moderate concentric left ventricular hypertrophy. No regional wall motion abnormalities. Thickened aortic valve. Trace tricuspid valve regurgitation. No gross abnormalities noted. Estimated pulmonary artery peak systolic pressure 24 mmHg There is no pericardial effusion. A&P Assessment and plan (1) Chest pain: Due to patient's previous coronary history and to evaluate his coronary status due to recent chest pain patient going to [facility] today. No chest pain overnight. Qualifiers: Chest pain type: precordial pain Qualified Code(s): R07.2 - Precordial pain (2) Atherosclerotic heart disease of [place] coronary artery with other forms of angina pectoris: Patient had acute inferior wall myocardial infarction in August 2021. Cardiac catheterization revealed a subtotal occlusion of the mid RCA. Around 50% lesion was noted in the mid LAD. Possibility of restenosis of the RCA lesion versus progression of disease in the LAD are considerations. Continue aspirin and Plavix. (3) Hypertension: Blood pressures been elevated in the 150s systolic. Will start amlodipine 5 mg daily. Continue to medically optimize Qualifiers: Hypertension type: primary hypertension Qualified Code(s): I10 - Essential (primary) hypertension (4) Dyslipidemia: May continue on the current medications. Plan A echo was performed that showed normal EF at 65% with no regional wall abnormalities. Patient requires a cardiac catheterization to further evaluate his coronary status. Cardiac catheterization this evening. Based on the angiogram findings, further recommendations will be made Attestations 2 Medical Necessity Statement*: Patient requires continued hospital stay for close monitoring and further management Coding Level of Care Code 62118 Diagnoses Precordial pain R07.2 Chest pain type: precordial pain Atherosclerotic heart disease of [place] coronary artery with other forms of angina pectoris I25.118 Primary hypertension I10 Hypertension type: primary hypertension Dyslipidemia E78.5
--- NOTE | 2024-04-04 12:14 | P.PN_ITS ---
Subjective 2 Subjective: Seen today. Patient awake alert oriented. at bedside. Going for cardiac cath today. Vitals/I&O/Wt Last Vital Signs Temp 97.7 F 04/04/24 11:41 Pulse 82 04/04/24 11:41 Resp 19 H 04/04/24 11:41 BP 145/115 04/04/24 11:41 Pulse Ox 90 04/04/24 11:41 O2 Del Method Room Air 04/04/24 11:41 04/03/24 04/04/24 04/04/24 22:59 06:59 14:59 Intake Total 480 / 480 Output Total 480 / 480 Balance 480 / 480 -480 / -480 Weight last 48 hrs Weight 98.628 kg Weight 98.628 kg Weight 98.628 kg Weight 97.522 kg Physical Exam 2 Narrative: General: Alert oriented x3, patient seen laying in bed, Chewing tobacco HEENT: Normocephalic, atraumatic, EOMI, breathing room air. Cardio: Regular rate rhythm, normal S1-S2, Respiratory: Clear to auscultation bilaterally no wheezes no rhonchi at this time. GI: Abdomen soft, nontender, nondistended, bowel sounds + Extremities: No edema, visible skin intact. Data 04/04/24 04:33 04/04/24 04:33 A&P Assessment and plan (1) S/P right coronary artery (RCA) stent placement: (2) Chest pain: Qualifiers: Chest pain type: precordial pain Qualified Code(s): R07.2 - Precordial pain (3) Coronary artery disease: (4) Hypertension: Qualifiers: Hypertension type: primary hypertension Qualified Code(s): I10 - Essential (primary) hypertension (5) Dyslipidemia: Plan #Chest pain #Coronary disease status post PCI #History of subtotal RCA occlusion #Noncompliant to medications #Alcohol intoxication #Alcohol abuse #Tobacco chewing ? First troponin negative. Await second and third troponin, EKG without any acute ischemic changes at this time. If tropes elevated will consider placing on NSTEMI protocol and anticoagulate. ? Check echocardiogram to rule out wall motion abnormalities ? Consult cardiology. Patient does have an abnormal stress test from last year. I will hold off on ordering another 1. Discussed with Dr. Fernando. Patient may warrant a cath at this time. -Will check alcohol level, lipid profile, hemoglobin A1c ? N.p.o. at midnight ? Await recommendations from cardiology ? Had a discussion with patient regarding compliance to medications. ? Discussed about tobacco as well. ? Continue aspirin Plavix atorvastatin, metoprolol, omeprazole ? Placed on CIWA protocol ? Placed on telemetry ? Continue to monitor on cardiac stepdown unit. Full code DVT prophylaxis: Heparin subcu twice daily 04/04/2024 -Troponins negative x 3 ? Echo without any wall motion abnormalities at this time. EF normal. ? Patient going for cardiac cath today. ? Cardiology following. ? Continue CIWA protocol. Attestations 2 Medical Necessity Statement*: Chest pain. Going for cardiac cath today. Diagnoses S/P right coronary artery (RCA) stent placement Z95.5 Precordial pain R07.2 Chest pain type: precordial pain Coronary artery disease I25.10 Primary hypertension I10 Hypertension type: primary hypertension Dyslipidemia E78.5
[2024-04-04 13:21] LABS: Hepatitis A Antibody IgM Non-Reactive (Nonreactive); Hepatitis B Core AB, Total Non-Reactive (Nonreactive); Hepatitis B Surface AB < 3.5 (11.5-1000); Hepatitis B Surface Antigen Non-Reactive (Nonreactive); Hepatitis C Virus Antibody Non-Reactive (Nonreactive)
--- NOTE | 2024-04-04 15:59 | XACV_ITS ---
Exam Room: 2 Ht: 157 cm Wt: 98 kg BSA: 2.13 m2 Gender: Male : 1955 Any Known Allergies: No known allergies Exam Priority: Routine Procedure(s): Procedure Description: Diagnostic procedure Procedure Description: Left Heart Catheterization Procedure Description: Coronary Angiography Abdullahi BERNARDO; Diagnostic Cath Status: Urgent Diagnostic Findings * The left main is a medium caliber vessel with no significant stenotic lesions. * The left anterior descending artery is a medium caliber vessel which appears to wraparound the LV apex minimally. The proximal LAD was found to have mild diffuse irregular narrowing of 20 to 30%. Right after the first diagonal branch, there was a segmental stenosis of around 40 to 50%. The distal LAD was found to have minimal intimal irregularities. The first diagonal branch was found to have mild diffuse intimal irregularities. * Intermedius artery, (high diagonal vessel) is a relatively small caliber vessel with a mild diffuse disease. * The left circumflex artery is a medium caliber vessel with minimal intimal irregularities in the midsegment. No significant stenotic lesions. * The right coronary artery is a medium caliber dominant vessel which was found to have mild diffuse disease proximally. The stented segment at the mid portion is widely patent. The distal RCA and the terminal branches were found to have mild diffuse disease. No severe stenotic lesions were noted. Conclusions 1. 68-year-old white male with a history of atherosclerotic heart disease and previous PCI, presenting with recurrent episodes of chest pain. Noncompliant with medications. Cardiac catheterization revealing the following. 2. 1. Patent stent in the right coronary artery.2. Mild diffuse disease in the other vessels.3. LVEDP of 11 mmHg. Diagnostic RX Recommendation: medical therapy and/or counseling LV EDP: 11 mmHg Left Ventriculography Findings: * Ventriculography was not performed. The LVEDP was 11 mmHg. Pressures Phase:Rest AO : 129 / 89 ( 108 ) @ 6:05:00 PM 124 / 94 ( 110 ) @ 6:10:00 PM 151 / 80 ( 112 ) @ 6:13:00 PM 152 / 81 ( 112 ) @ 6:13:00 PM LV : 155 / -16 / 11 @ 6:13:00 PM 154 / -11 / 14 @ 6:13:00 PM Valves Phase:DefaultPhase AV : 4.0 @ 5:22:50 PM AV Mean Gradient: 19.0 @ 5:22:50 PM Clinical Evaluation EBL: 5mL-10mL Procedural Details Procedure Consent Obtained. Admit Source: In Patient. Isaura Perdue RN was relieved by Ronna Heller RN as monitoring person. Pre-Procedure Time Out. Identified patient by full name and date of as verbalized by the patient/guarantor. Does the consent match the physician's order: Yes. Accurate & Complete Informed Consent: Yes. Inpatient/Outpatient History & Physical on Chart: Yes. If H&P is completed, is and addenduem needed: No; If yes, is the addendum complete: N/A. Visualize and Verify Site with Patient/Guarantor: N/A. Relevant Radiology Images available: N/A. Pre-op teaching completed and patient verbalized understanding. The risks, benefits, and alternatives of sedation and/or procedure were discussed by physician. The patient agrees to continue. Procedure started. [facility] Clinical Fraility Score: 4: Vulnerable. Film Sorter Indications: Worsening Angina. Chest Pain Symptom Assessment: Typical Angina Symptoms. Cardiovascular Instability: Yes, if yes, Persistant Ischemic Symptoms. Correct patient, site and procedure confirmed by cath team. Current diagnosis: Chest Pain, abnormal stress test. PERRLA. 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 Lungs clear x 5 lobes. IV Site on Arrival: 20 gauge in the left anticubital. IV Fluids: 0.9% NaCl at KVO. 0 mL infused prior to wharf labourer. Pre Procedural Pulses: bilateral dorsalis pedis was 1+. Oxygen started at 2liters/min via nasal canula. right groin was prepped with chloroprep then draped in the usual sterile fashion. Physician notified. Baseline sample Acquired. HR: 74 BPM. Physician arrived. Physician scrubbed in. Immediate Pre-Procedure Time Out. Correct Patient: Yes; Correct Procedure: Yes; Correct Site: Yes; Correct Patient Position: Yes; Correct Supplies: Yes; Dried Flammable Prep: Yes; Blood Products Available: N/A;. Lidocaine 1% infiltrated to the right groin. Arterial access obtained with micropuncture set. A 5 spanish JL4 catheter in over wire. Multiple views taken of left coronary artery. Catheter removed over the standard wire. A 5 spanish JR4 catheter in over wire. Multiple views taken of right coronary artery. EDP Sample taken: LV 155/-17,11; HR: 78 BPM; SpO2: 95%. Pullback taken: LV 154/-12,14; AO 151/80(112); Mean: 19mmHg, Peak to Peak: 4mmHg, SEP: 8sec/min; HR: 78 BPM; SpO2: 95%. A Suture was successful obtaining hemostatsis at the Right Femoral artery insertion site. Physician scrubbed out. Sheath(s) sutured into position with 2-0 silk and sterile 4x4's and Op-site applied over the site. No oozing or signs and symptoms of hematoma noted. Arterial sheath flushed and connected to tranducer and pressure bag with heparinized saline. Post Procedure: Pulses reassessed and unchanged. PERRLA. 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 No VTE prophylaxis required. Medication's Wasted: Lidocaine 1% = 10 mL. Medication's Wasted: Other = Versed 1 mg. Medication's Wasted: Other = Fentanyl 50 mcg. Total IV fluids: 25 mL. Post-op diagnosis: Non obstructive CAD. Complications: none. Estimated blood loss: 5mL-10mL. Responsiveness - Normal response to verbal stimuli; alert and oriented, PERRLA. Airway - Unaffected, no intervention required; spontaneous ventilation. Circulation: W/N/L, pulses unchanged. Nausea/Vomiting: No. Procedure completed. Patient transferred by bed to 1st floor. Vital chart was stopped. Access Site Site: Right Femoral artery Sheath Size: 6 Fr Hemostasis Method: Suture Hemostasis Success: Successful Procedure Medications Start: 4:52 PM Stop: 4:52 PM Medication: Versed Amount: 1 mg Route: I.V. Start: 4:52 PM Stop: 4:52 PM Medication: Fentanyl Amount: 50 mcg Route: I.V. Start: 5:04 PM Stop: 5:04 PM Medication: Heparin Amount: 1500 units Route: I.V. I, the attending physician, have reviewed and verified all procedure medications. Yes, all medications given per verbal order History/Risk Factors Hypertension: Yes Dyslipidemia: Yes Peripheral Arterial Disease (PAD): No Myocardial Infarction (RI): No Obesity: Yes Renal Disease: No Tobacco Use: Never Prior Interventions PCI: Yes CABG: No Valve Surgery: No Date of PCI: 09/08/2021 Report Signatures Finalized by Dr Sheba Fernando MD [facility] on 04/04/2024 11:24 PM
--- NOTE | 2024-04-04 18:44 | PC.NURSE ---
Patient received from cath s/p [facility] with right femoral access diagnostic only. Sheath removed upon arrival. Hemostasis achieved immediately. Maintained pressure for 20min. No s/s of bleeding or hematoma formation observed. Covered site with 2x2 and bio-occlusive. Patient tolerated well. Will continue to monitor.
[2024-04-04] MEDS: atorvastatin 40 mg Tablet PO (20:38)
[2024-04-04] MEDS: trazodone 50 mg Tablet 150 MG PO (20:38)
[2024-04-04 22:16] LABS: Partial Thromboplastin Time 24.8 SECONDS (23.9-36.7)
[2024-04-05] VITALS (7 sets, daily range): BP systolic 105–158; BP diastolic 55–92; PULSE 68–79; RESP 18–24; TEMP 36.6–37.6; O2SAT 87–94; BMI 41.0
[2024-04-05] MEDS: heparin 5,000 unit/mL INJ 1 mL 5000 UNIT SUBCUT (02:10)
[2024-04-05 05:26] LABS: Basophils # 0.1 10^3/uL (0.0-0.1); Basophils % 0.9 %; Eosinophils # 0.1 10^3/uL (0.0-0.8); Eosinophils % 1.7 %; Hematocrit 47.9 % (37-53); Lymphocytes # 1.6 10^3/uL (0.8-4.8); Lymphocytes % 29.7 %; Mean Corpuscular HGB Conc 33.8 g/dL (30-55); Mean Corpuscular Volume 100.4 fl (82-101); Mean Platelet Volume 10.8 fL (7.4-10.4); Monocytes # 0.5 10^3/uL (0.2-0.9); Monocytes % 9.1 %; Neutrophils # 3.12 10^3/uL (1.8-7.7); Neutrophils % 58.2 %; Nucleated Red Blood Cells % 0 %; Platelet Count 206 10^3/cmm (157-399); Red Blood Count 4.77 10^6/uL (3.85-5.65); Red Cell Distribution Width 13.1 % (12.1-15.1); White Blood Count 5.36 10^3/uL (3.29-11.43)
[2024-04-05 05:53] LABS: Anion Gap 14.5 (5-19); Blood Urea Nitrogen 15 mg/dL (8-23); Calcium 9.2 mg/dL (8.5-10.5); Carbon Dioxide 24 mmol/L (22-29); Chloride 107 mmol/L (98-107); Creatinine Clr Calc Pharmacy 93.1257; Glomerular Filtration Rate 96.4 mL/min (90-130); Glucose 101 mg/dL (65-115); Osmolality Calculated 295 mOsm/kg (285-295); Potassium 3.5 mmol/L (3.5-5.1); Sodium 142 mmol/L (136-145)
[2024-04-05] MEDS: thiamine 100 mg Tablet PO (08:22)
[2024-04-05] MEDS: tamsulosin 0.4 mg Capsule PO (08:23)
[2024-04-05] MEDS: aspirin 81 mg EC Tablet PO (08:23)
[2024-04-05] MEDS: multivitamin therapeutic Tablet 1 TAB PO (08:23)
[2024-04-05] MEDS: losartan 50 mg Tablet 100 MG PO (08:23)
[2024-04-05] MEDS: amlodipine 5 mg Tablet PO (08:23)
[2024-04-05] MEDS: pantoprazole DR 40 mg Tablet PO (08:23)
[2024-04-05] MEDS: metoprolol tartrate 50 mg Tablet PO (08:23)
[2024-04-05] MEDS: folic acid 1 mg Tablet PO (08:23)
[2024-04-05] MEDS: clopidogrel 75 mg Tablet PO (08:23)
--- NOTE | 2024-04-05 09:28 | PM.DCS ---
Discharge Providers Date of Admission: 04/03/24 14:20 Date of Discharge: April 05, 2024 Attending Provider at Admission: Charla Cortez MD Attending Provider at Discharge: Charla Cortez MD Primary Care Provider: Gonzalo Hooker MD Diagnoses at Discharge Discharge Diagnosis (1) Chest pain: Status: Resolved Qualifiers: Chest pain type: precordial pain Qualified Code(s): R07.2 - Precordial pain (2) Atherosclerotic heart disease of [place] coronary artery with other forms of angina pectoris: Status: Acute (3) Hypertension: Status: Acute Qualifiers: Hypertension type: primary hypertension Qualified Code(s): I10 - Essential (primary) hypertension (4) Dyslipidemia: Status: Acute Reason for Visit Reason for Visit: Chest pain, SOB Hospital Course Hospital Course Patient presented to the hospital with complaint of chest pain he was also intoxicated with alcohol at the time. He did have an abnormal stress test the year before however was lost to follow-up thereafter. Cardiology was consulted. Troponins were negative x 3. Echo showed no wall motion abnormalities. Patient underwent cardiac angiogram which showed patent prior RCA stent. He was discharged home with medical management at this time. He was encouraged to stop drinking alcohol and to follow-up with cardiology and his primary care doctor. Physical Exam Narrative: General: Alert oriented x3, patient seen laying in bed, Chewing tobacco HEENT: Normocephalic, atraumatic, EOMI, breathing room air. Cardio: Regular rate rhythm, normal S1-S2, Respiratory: Clear to auscultation bilaterally no wheezes no rhonchi at this time. GI: Abdomen soft, nontender, nondistended, bowel sounds + Extremities: No edema, visible skin intact. no groin hematoma appreciated, pulses intact Discharge Data Studies Completed and Pending Completed Studies During Hospitalization Category Date Time Status CT abdomen pelvis w con* [id number] Routine Cat Scan 04/03/24 15:05 Completed [facility] request for service Routine Exams 04/04/24 15:59 Completed XR chest 1V portable [id number] Stat Exams 04/03/24 11:35 Completed CV. echo complete* [id number] Stat Ultrasound 04/03/24 13:08 Completed Pending at discharge Category Date Time Status Amylase Routine Lab 04/03/24 11:15 Received Radiology Impressions Chest X-Ray 04/03/24 11:35 IMPRESSION: 1. No acute cardiopulmonary finding. Abdomen/Pelvis CT 04/03/24 15:05 IMPRESSION: 1. A few scattered subcentimeter hepatic hypodensities are too small to characterize. These do not have the appearance of simple cysts. Recommend follow-up nonemergent right upper quadrant ultrasound or MRI abdomen without and with contrast for further characterization. 2. Status post cholecystectomy. Laboratory Results WBC 5.36 10^3/uL (3.29-11.43) 04/05/24 05:14 RBC 4.77 10^6/uL (3.85-5.65) 04/05/24 05:14 Hgb 16.20 g/dL (11.27-16.99) 04/05/24 05:14 Hct 47.9 % (37-53) 04/05/24 05:14 MCV 100.4 fl (82-101) 04/05/24 05:14 MCH 34.0 pg (27-33) H 04/05/24 05:14 MCHC 33.8 g/dL (30-55) 04/05/24 05:14 RDW 13.1 % (12.1-15.1) 04/05/24 05:14 Plt Count 206 10^3/cmm (157-399) 04/05/24 05:14 MPV 10.8 fL (7.4-10.4) H 04/05/24 05:14 Neut % (Auto) 58.2 % 04/05/24 05:14 Lymph % (Auto) 29.7 % 04/05/24 05:14 [place] % (Auto) 9.1 % 04/05/24 05:14 Eos % (Auto) 1.7 % 04/05/24 05:14 Baso % (Auto) 0.9 % 04/05/24 05:14 Neut # (Auto) 3.12 10^3/uL (1.8-7.7) 04/05/24 05:14 Lymph # (Auto) 1.6 10^3/uL (0.8-4.8) 04/05/24 05:14 [place] # (Auto) 0.5 10^3/uL (0.2-0.9) 04/05/24 05:14 Eos # (Auto) 0.1 10^3/uL (0.0-0.8) 04/05/24 05:14 Baso # (Auto) 0.1 10^3/uL (0.0-0.1) 04/05/24 05:14 Nucleated RBC % (auto) 0 % 04/05/24 05:14 Nucleated RBCs # 0.0 /100WBC 04/05/24 05:14 APTT 24.8 SECONDS (23.9-36.7) 04/04/24 21:54 Sodium 142 mmol/L (136-145) 04/05/24 05:14 Potassium 3.5 mmol/L (3.5-5.1) 04/05/24 05:14 Chloride 107 mmol/L (98-107) 04/05/24 05:14 Carbon Dioxide 24 mmol/L (22-29) 04/05/24 05:14 Anion Gap 14.5 (5-19) 04/05/24 05:14 BUN 15 mg/dL (8-23) 04/05/24 05:14 Creatinine 0.8 mg/dL (0.7-1.2) 04/05/24 05:14 GFR Calculation 96.4 mL/min (90-130) 04/05/24 05:14 Glucose 101 mg/dL (65-115) 04/05/24 05:14 Calculated Osmolality 295 mOsm/kg (285-295) 04/05/24 05:14 Calcium 9.2 mg/dL (8.5-10.5) 04/05/24 05:14 Total Bilirubin 0.5 mg/dL (0.15-1.2) 04/03/24 11:15 AST 49 U/L (0-40) H 04/03/24 11:15 ALT 45 U/L (0-41) H 04/03/24 11:15 Alkaline Phosphatase 75 U/L (40-130) 04/03/24 11:15 Troponin T Baseline 11 ng/L (0-15) 04/03/24 11:15 Troponin T 120 Minute 9.31 ng/L (0-15) 04/03/24 13:17 Delta Troponin T -1.69 ABS# (0-10) L 04/03/24 13:17 Troponin T Hi Sens 6Hr 8.62 ng/L (0-15) 04/03/24 17:45 Troponin T Hi Sens 6Hr Delta -2.38 ng/L (0-12) L 04/03/24 17:45 NT-Pro-B Natriuret Pep 66 pg/mL (0-125) 04/03/24 11:15 Total Protein 7.7 g/dL (6.6-8.7) 04/03/24 11:15 Albumin 4.3 g/dL (3.5-5.2) 04/03/24 11:15 Globulin 3.4 g/dL (1.3-4.6) 04/03/24 11:15 Triglycerides 117 mg/dL (0-150) 04/03/24 13:17 Cholesterol 158 mg/dL (0-200) 04/03/24 13:17 LDL Cholesterol, Calc 98 mg/dL (50-129) 04/03/24 13:17 HDL Cholesterol 37 mg/dL (60-100) L 04/03/24 13:17 LDL/HDL Ratio 2.65 RATIO (0.00-3.22) 04/03/24 13:17 Cholesterol/HDL Ratio 4.27 mg/dL (1.0-5.00) 04/03/24 13:17 Lipase 50 U/L (13-60) 04/03/24 11:15 Vitamin B12 544 pg/mL (232-1245) 04/03/24 11:15 Folate 3.3 ng/mL (4.5-32.2) L 04/03/24 11:15 Ethyl Alcohol 225 mg/dL (0-10) H 04/03/24 11:15 Hepatitis A IgM Ab Non-reactive (Nonreactive) 04/04/24 04:33 Hep Bs Antigen Non-reactive (Nonreactive) 04/04/24 04:33 Hep Bs Antibody < 3.5 (11.5-1000) L 04/04/24 04:33 Hep B Core Total Ab Non-reactive (Nonreactive) 04/04/24 04:33 Hepatitis C Antibody Non-reactive (Nonreactive) 04/04/24 04:33 Vitals Last Vital Signs Temp 97.8 F 04/05/24 07:44 Pulse 79 04/05/24 07:44 Resp 24 H 04/05/24 07:44 BP 158/92 04/05/24 08:23 Pulse Ox 94 04/05/24 07:44 O2 Del Method Room Air 04/05/24 07:44 Discharge Plan Discharge Patient Disposition: Home Condition: Stable Prescriptions: New folic acid 1 mg Tablet 1 mg PO DAILY Qty: 30 0RF multivitamin with folic acid [Thera] 400 mcg Tablet 1 tab PO DAILY Qty: 30 0RF thiamine mononitrate (vit B1) [Vitamin B-1 (mononitrate)] 100 mg Tablet 100 mg PO DAILY Qty: 30 0RF amlodipine 5 mg tablet 5 mg PO DAILY Qty: 30 0RF Continued allopurinol 100 mg tablet 100 mg PO DAILY nitroglycerin [Nitrostat] 0.4 mg Tablet, Sublingual 0.4 mg SUBLINGUAL Q5M PRN (Reason: Chest Pain) Rx Instructions: do not exceed 3 doses per episode gabapentin 600 mg tablet 600 mg PO BEDTIME PRN (Reason: Pain) losartan 100 mg tablet 100 mg PO DAILY atorvastatin 40 mg tablet 40 mg PO BEDTIME Qty: 30 0RF trazodone 50 mg tablet 150 mg PO BEDTIME PRN (Reason: Sleep) Qty: 30 0RF tamsulosin [Flomax] 0.4 mg capsule 0.4 mg PO DAILY Qty: 30 0RF docusate sodium 100 mg capsule 100 mg PO BID PRN (Reason: Constipation) Qty: 20 0RF omeprazole 20 mg capsule,delayed release(DR/EC) 20 mg PO DAILY Qty: 30 0RF aspirin 81 mg Tablet,Delayed Release (Dr/Ec) 81 mg PO DAILY 30 Days Qty: 30 0RF Changed metoprolol succinate 50 mg tablet extended release 24 hr 50 mg PO DAILY Qty: 30 0RF Discontinued potassium chloride 20 mEq tablet,ER particles/crystals 20 meq PO QAM clopidogrel 75 mg Tablet 75 mg PO DAILY 90 Days Qty: 30 4RF amlodipine 2.5 mg tablet 2.5 mg PO DAILY Qty: 30 0RF Discharge Orders: Discharge Order (Routine); Ordered 04/05/24 Ordered By: Charla Cortez Referrals: Gonzalo Hooker MD [Primary Care Provider] - 04/12/24 3:00 pm Geeta Gonzalez FNP [Nurse Practitioner] - 04/17/24 1:30 pm Discharge Diet: Cardiac Discharge Activity: Limit activity as instructed Patient Instructions: Opioid Safety Activity Restrictions/Additional Instructions: Appointment the [facility] in 1 to 2 weeks to be seen by the nurse practitioner. Please give postcardiac catheterization instructions Avoid any weight lifting or climbing stairs for the next 3 days Increase the dose of the amlodipine to 5 mg daily Appointment with me in the office in 1 month Discharge Attestations Time Spent in Discharge Care*: greater than 30 min Quality Metrics Clinical Quality Measures [ No reported AMI, CVA or VTE this stay] Coding Level of Care Code Acute Code for Chg Fwd Diagnoses Precordial pain R07.2 Chest pain type: precordial pain Atherosclerotic heart disease of [place] coronary artery with other forms of angina pectoris I25.118 Primary hypertension I10 Hypertension type: primary hypertension Dyslipidemia E78.5
--- NOTE | 2024-04-05 10:55 | PM.PN ---
Subjective Subjective: Patient underwent a cardiac catheterization yesterday. He was found to have patent stent in the RCA. Mild to moderate diffuse disease in the other vessels. The patient is remaining stable with no new symptoms. Medications: Medication Review Details: Current Medications Acetaminophen (Acetaminophen 325 Mg Tablet) 650 mg PO Q6H PRN PRN Reason: Mild/Mod Pain Or Temp >/= 101 Last Admin: 04/04/24 07:50 Dose: 650 mg Al Hydrox/Mg Hydrox/Simethicone (Ucbc-Ksd-Fowmotsaj-Nahomy 30 Ml Udc) 30 ml PO Q15M PRN PRN Reason: INDIGESTION Amlodipine Besylate (Amlodipine 5 Mg Tablet) 5 mg PO DAILY [facility] Last Admin: 04/05/24 08:23 Dose: 5 mg Aspirin (Aspirin 81 Mg Ec Tablet) 81 mg PO DAILY [facility] Last Admin: 04/05/24 08:23 Dose: 81 mg Atorvastatin Calcium (Atorvastatin 40 Mg Tablet) 40 mg PO BEDTIME [facility] Last Admin: 04/04/24 20:38 Dose: 40 mg Atropine Sulfate (Atropine 1 Mg/Ml Sdv 1 Ml) 0.5 mg IVP PRN PRN PRN Reason: Symptomatic bradycardia Clopidogrel Bisulfate (Clopidogrel 75 Mg Tablet) 75 mg PO DAILY [facility] Last Admin: 04/05/24 08:23 Dose: 75 mg Folic Acid (Folic Acid 1 Mg Tablet) 1 mg PO DAILY [facility] Last Admin: 04/05/24 08:23 Dose: 1 mg Heparin Sodium (Porcine) (Heparin 5,000 Unit/Ml Inj 1 Ml) 5,000 unit SUBCUT Q12H [facility] Last Admin: 04/05/24 02:10 Dose: 5,000 unit Hydralazine HCl (Hydralazine 20 Mg/Ml Inj 1 Ml) 10 mg IVP Q6H PRN PRN Reason: SYSTOLIC BLOOD PRESSURE Last Admin: 04/04/24 03:28 Dose: 10 mg Lorazepam (Lorazepam 2 Mg Tablet) 2 mg PO Q4H PRN; Protocol PRN Reason: WITHDRAWAL Last Admin: 04/04/24 08:55 Dose: 2 mg Lorazepam (Lorazepam 2 Mg/Ml Inj 1 Ml) 2 mg IM Q4H PRN; Protocol PRN Reason: ALCOHOL WITHDRAWAL Lorazepam (Lorazepam 2 Mg/Ml Inj 1 Ml) 2 mg IVP PRN PRN; Protocol PRN Reason: WITHDRAWAL Losartan Potassium (Losartan 50 Mg Tablet) 100 mg PO DAILY [facility] Last Admin: 04/05/24 08:23 Dose: 100 mg Magnesium Hydroxide (Magnesium Hydroxide 30 Ml Udc) 30 ml PO DAILY PRN PRN Reason: CONSTIPATION Metoprolol Tartrate (Metoprolol Tartrate 50 Mg Tablet) 50 mg PO BID [facility] Last Admin: 04/05/24 08:23 Dose: 50 mg Multivitamins Therapeutic (Multivitamin Therapeutic Tablet) 1 tab PO DAILY [facility] Last Admin: 04/05/24 08:23 Dose: 1 tab Naloxone HCl (Naloxone 0.4 Mg/Ml Sdv) 0.1 mg IVP Q2M PRN PRN Reason: RESPIRATORY RATE < 8/MIN Nitroglycerin (Nitroglycerin 0.4 Mg Sublingual Tablet) 0.4 mg SUBLINGUAL Q5M PRN PRN Reason: CHEST PAIN Ondansetron HCl (Ondansetron 2 Mg/Ml Sdv 2 Ml) 4 mg IVP Q8H PRN PRN Reason: vomiting, or N/V if npo Pantoprazole Sodium (Pantoprazole Dr 40 Mg Tablet) 40 mg PO DAILY [facility] Last Admin: 04/05/24 08:23 Dose: 40 mg Tamsulosin HCl (Tamsulosin 0.4 Mg Capsule) 0.4 mg PO DAILY [facility] Last Admin: 04/05/24 08:23 Dose: 0.4 mg Thiamine Mononitrate (Thiamine 100 Mg Tablet) 100 mg PO DAILY [facility] Last Admin: 04/05/24 08:22 Dose: 100 mg Trazodone HCl (Trazodone 50 Mg Tablet) 150 mg PO BEDTIME PRN PRN Reason: Sleep Last Admin: 04/04/24 20:38 Dose: 150 mg Vitals/I&O/Wt Last Vital Signs Temp 97.8 F 04/05/24 07:44 Pulse 79 04/05/24 07:44 Resp 24 H 04/05/24 07:44 BP 158/92 04/05/24 08:23 Pulse Ox 94 04/05/24 07:44 O2 Del Method Room Air 04/05/24 07:44 04/04/24 04/05/24 04/05/24 22:59 06:59 14:59 Intake Total 100 / 100 240 / 240 Output Total 300 / 780 Balance -200 / -680 240 / 240 Weight last 48 hrs Weight 224 lb 6.889 oz Weight 224 lb 1.6 oz Weight 217 lb 7 oz Weight 217 lb 7 oz Weight 217 lb 7 oz Weight 215 lb Physical Exam Narrative: GENERAL: The patient is alert and oriented times three. Not in any acute distress. HEENT: No significant pallor, icterus or lymphadenopathy.Oral cavity: There are no mucous membrane lesions. NECK: Trachea appears to be central. No masses noted. No JVD or thyromegaly appreciated. RESPIRATORY: Chest is symmetrical. No intercostals muscle retraction or any accessory muscle activation. There is no chest wall tenderness. Breath sounds are heard bilaterally. No rales or rhonchi heard. No evidence of any consolidation. BREASTS: Deferred. HEART: The heart sounds are normal. No S3 or S4. No significant murmurs. No pericardial rub ABDOMEN: No vessel pulsations or distention. No tenderness. No organomegaly appreciated. Bowel sounds are normally heard. : Deferred. RECTAL: Deferred. LYMPHATIC: No lymphadenopathy noted in the neck. EXTREMITIES: No hematoma bleeding at the right groin. Good distal pulses. MUSCULOSKELETAL: No acute joint deformities or swelling SKIN: There are no significant rashes or ecchymosis NEUROPSYCHIATRIC: The patient is alert and oriented x3. Appears to be in a good mood. No tremors or rigidity noted. Data 04/05/24 05:14 04/05/24 05:14 Other Labs: Laboratory Last Values WBC 5.36 10^3/uL (3.29-11.43) 04/05/24 05:14 RBC 4.77 10^6/uL (3.85-5.65) 04/05/24 05:14 Hgb 16.20 g/dL (11.27-16.99) 04/05/24 05:14 Hct 47.9 % (37-53) 04/05/24 05:14 MCV 100.4 fl (82-101) 04/05/24 05:14 MCH 34.0 pg (27-33) H 04/05/24 05:14 MCHC 33.8 g/dL (30-55) 04/05/24 05:14 RDW 13.1 % (12.1-15.1) 04/05/24 05:14 Plt Count 206 10^3/cmm (157-399) 04/05/24 05:14 MPV 10.8 fL (7.4-10.4) H 04/05/24 05:14 Neut % (Auto) 58.2 % 04/05/24 05:14 Lymph % (Auto) 29.7 % 04/05/24 05:14 [place] % (Auto) 9.1 % 04/05/24 05:14 Eos % (Auto) 1.7 % 04/05/24 05:14 Baso % (Auto) 0.9 % 04/05/24 05:14 Neut # (Auto) 3.12 10^3/uL (1.8-7.7) 04/05/24 05:14 Lymph # (Auto) 1.6 10^3/uL (0.8-4.8) 04/05/24 05:14 [place] # (Auto) 0.5 10^3/uL (0.2-0.9) 04/05/24 05:14 Eos # (Auto) 0.1 10^3/uL (0.0-0.8) 04/05/24 05:14 Baso # (Auto) 0.1 10^3/uL (0.0-0.1) 04/05/24 05:14 Nucleated RBC % (auto) 0 % 04/05/24 05:14 Nucleated RBCs # 0.0 /100WBC 04/05/24 05:14 APTT 24.8 SECONDS (23.9-36.7) 04/04/24 21:54 Sodium 142 mmol/L (136-145) 04/05/24 05:14 Potassium 3.5 mmol/L (3.5-5.1) 04/05/24 05:14 Chloride 107 mmol/L (98-107) 04/05/24 05:14 Carbon Dioxide 24 mmol/L (22-29) 04/05/24 05:14 Anion Gap 14.5 (5-19) 04/05/24 05:14 BUN 15 mg/dL (8-23) 04/05/24 05:14 Creatinine 0.8 mg/dL (0.7-1.2) 04/05/24 05:14 GFR Calculation 96.4 mL/min (90-130) 04/05/24 05:14 Glucose 101 mg/dL (65-115) 04/05/24 05:14 Calculated Osmolality 295 mOsm/kg (285-295) 04/05/24 05:14 Calcium 9.2 mg/dL (8.5-10.5) 04/05/24 05:14 Total Bilirubin 0.5 mg/dL (0.15-1.2) 04/03/24 11:15 AST 49 U/L (0-40) H 04/03/24 11:15 ALT 45 U/L (0-41) H 04/03/24 11:15 Alkaline Phosphatase 75 U/L (40-130) 04/03/24 11:15 Troponin T Baseline 11 ng/L (0-15) 04/03/24 11:15 Troponin T 120 Minute 9.31 ng/L (0-15) 04/03/24 13:17 Delta Troponin T -1.69 ABS# (0-10) L 04/03/24 13:17 Troponin T Hi Sens 6Hr 8.62 ng/L (0-15) 04/03/24 17:45 Troponin T Hi Sens 6Hr Delta -2.38 ng/L (0-12) L 04/03/24 17:45 NT-Pro-B Natriuret Pep 66 pg/mL (0-125) 04/03/24 11:15 Total Protein 7.7 g/dL (6.6-8.7) 04/03/24 11:15 Albumin 4.3 g/dL (3.5-5.2) 04/03/24 11:15 Globulin 3.4 g/dL (1.3-4.6) 04/03/24 11:15 Triglycerides 117 mg/dL (0-150) 04/03/24 13:17 Cholesterol 158 mg/dL (0-200) 04/03/24 13:17 LDL Cholesterol, Calc 98 mg/dL (50-129) 04/03/24 13:17 HDL Cholesterol 37 mg/dL (60-100) L 04/03/24 13:17 LDL/HDL Ratio 2.65 RATIO (0.00-3.22) 04/03/24 13:17 Cholesterol/HDL Ratio 4.27 mg/dL (1.0-5.00) 04/03/24 13:17 Lipase 50 U/L (13-60) 04/03/24 11:15 Vitamin B12 544 pg/mL (232-1245) 04/03/24 11:15 Folate 3.3 ng/mL (4.5-32.2) L 04/03/24 11:15 Ethyl Alcohol 225 mg/dL (0-10) H 04/03/24 11:15 Hepatitis A IgM Ab Non-reactive (Nonreactive) 04/04/24 04:33 Hep Bs Antigen Non-reactive (Nonreactive) 04/04/24 04:33 Hep Bs Antibody < 3.5 (11.5-1000) L 04/04/24 04:33 Hep B Core Total Ab Non-reactive (Nonreactive) 04/04/24 04:33 Hepatitis C Antibody Non-reactive (Nonreactive) 04/04/24 04:33 A&P Assessment and plan (1) Chest pain: Currently resolved. The chest pain most likely is noncardiac. 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 Around 50% lesion in the mid LAD. Mild diffuse disease in the other vessels. LVEDP of 11 mmHg. Based on the angiogram findings, it was opted to treat him medically. (3) Hypertension: The blood pressure seems to be improving from yesterday. May continue the amlodipine 5 mg p.o. daily Qualifiers: Hypertension type: primary hypertension Qualified Code(s): I10 - Essential (primary) hypertension (4) Dyslipidemia: May continue on the current medications. Plan Discussed with the patient in detail the importance of medication compliance, compliance to diet and exercise. He strongly advised to quit chewing tobacco and also drinking alcohol. The patient and the family seems understand implications. Please make an appointment to be seen in the office in 1 week I will see him in the office in 1 month Attestations Medical Necessity Statement*: Deferred to the primary Coding Level of Care Code 31349 Diagnoses Precordial pain R07.2 Chest pain type: precordial pain Atherosclerotic heart disease of [place]gr[place] coronary artery with other forms of angina pectoris I25.118 Primary hypertension I10 Hypertension type: primary hypertension Dyslipidemia E78.5
--- NOTE | 2024-04-05 11:52 | PC.NURSE ---
Patient discharged to home. Instruction provided regarding follow-up appointments and medications with changes. Stress the importance of complying with is medications. Also provided directions for site care and restrictioins. Patient and spouse verbalized complete understanding. Patient denies pain or needs. No distress observed. Patient taken by wheelchair to private vehicle. Spouse at side.
[2024-04-05 14:40] LABS: Amylase 42 U/L (21-101)
== END 2024-04-05 11:54 | disposition home or self-care (01) ==
LOC: ER 13:04 → CSU 14:21
PROVIDERS: Internal Medicine Cardiovascular Disease; Admitting Provider Internal Medicine; Emergency Provider Emergency Medicine; PCP Family Medicine; Visit Provider Internal Medicine
DX: I25.118 Atherosclerotic heart disease of native coronary artery with other forms of angina pectoris (principal); I10 Essential (primary) hypertension; E78.5 Hyperlipidemia, unspecified; F17.220 Nicotine dependence, chewing tobacco, uncomplicated; Z95.5 Presence of coronary angioplasty implant and graft; E66.9 Obesity, unspecified; Z68.41 Body mass index [BMI] 40.0-44.9, adult; Z91.199 Patient's noncompliance with other medical treatment and regimen due to unspecified reason; F10.129 Alcohol abuse with intoxication, unspecified; Y90.7 Blood alcohol level of 200-239 mg/100 ml; I25.2 Old myocardial infarction
CPT/HCPCS: 36415; 71045; 74177; 80048; 80053; 80061; 80307; 82150; 82607; 82746; 83690; 83880; 84484; 85025; 85730; 86705; 86706; 86709; 86803; 87340; 93005; 93306; 93458; 96372; 96374; 96376; 99152; 99153; 99285; C1769; C1887; C1894; G0378; J0360; J1644; J2250; J3010; J3411; J3490; J7050; Q9967

== ENCOUNTER 2024-11-25 16:53 | Outpatient (CLI) | payer MEDICARE, MEDICAID, SELFPAY | END 2024-11-25 16:54 | disposition home or self-care (01) | LOC: SLEEP 16:54 | PROVIDERS: PCP Family Medicine; Referring Provider Family Medicine; Visit Provider Family Medicine | DX: G47.33 Obstructive sleep apnea (adult) (pediatric) (principal); G47.36 Sleep related hypoventilation in conditions classified elsewhere | CPT/HCPCS: G0399 ==